=== PATIENT | female | born 1955 | race American Indian/Alaskan Native ===

== ENCOUNTER 2016-05-02 11:30 | Inpatient (IN) | payer OTHER ==
[~2016-05-02] VITALS: Ht 165.1 cm; Wt 156.2 kg
[~2016-05-02 11:30] MED LIST: ACET325T26 PO; ALBU2.5V NEB; ALBU6.7H IH; AMLO5TAB4 PO; AMOX1TAB12 PO; APIX5TAB PO; ASPI-650; AZIT-14 PO; CEFD300C2 PO; CHOL20002 PO; CLIN300C93 PO; DILT300C44 PO; DOXY100C2 PO; DOXY100T PO; Doxycycline Hyclate PO; FLUT1BLS INH; FOLI-17 PO; FURO-92 PO; FURO20TA3 PO; GLIM4TAB2 PO; GUAI400T26 PO; GUAI5SYR PO; HYDR-3241 PO; HYDR60CR2 TP; IBUP400T PO; INSU100I18 SQ-INSULIN; INSU100I28 SQ-INSULIN; INSU100V13 SQ; LEVO750T26 PO; LEVO75TA PO; LISI20TA PO; METH4TAB2 PO; NITR100C PO; OMEP-110 PO; OXYC5CAP4 PO; PRED10TA PO; PRED20TA PO; PRED50TA PO; SIMV20TA3 PO; SPIR100T2 PO; SPIR50TA2 PO; TRAZ50TA18 PO; [UNRECOGNIZED DRUG - CODE]
[2016-05-02] MEDS ORDERED: SODIUM CHLORIDE FLUSH 10ML SYR IVF ONE (12:30)
[2016-05-02 12:38] LABS: HEMOGLOBIN 10.7 g/dL (11.7-16.4)
[2016-05-02] MEDS ORDERED: ALBUTEROL/IPRATROPIUM 2.5MG/0.5MG, 3 ML ONE (12:38)
[2016-05-02] MEDS: ALBUTEROL/IPRATROPIUM 2.5MG/0.5MG, 3 ML NPPB SCH ×2 (12:50→12:51)
[2016-05-02 12:52] LABS: BLOOD UREA NITROGEN 20 mg/dL (7-18)
[2016-05-02] MEDS ORDERED: APIX5TAB PO (12:54)
[2016-05-02] MEDS ORDERED: PRED10TA PO (12:54)
[2016-05-02 12:56] LABS: IS PT STATUS REG ER OR PRE ER? YES
[2016-05-02] MEDS ORDERED: POTA90TA2 PO (12:56)
[2016-05-02 14:16] LABS: PATH.CAST-FLAG NOT PRESENT; SPERM-FLAG NOT PRESENT; SRC-FLAG NOT PRESENT; XTAL-FLAG NOT PRESENT; YLC-FLAG NOT PRESENT
[2016-05-02] MEDS ORDERED: PIPERACILLIN/TAZO/PMX 3.375GM 50 ML IV ONE (14:30)
[2016-05-02] MEDS ORDERED: PIPERACILLIN/TAZO/PMX 3.375GM 0 ML ONE (14:46)
[2016-05-02] MEDS ORDERED: HYDROcodone/APAP 5/325 TABLET PO PRN (15:00)
[2016-05-02] MEDS ORDERED: ONDANSETRON 2MG/ML, 2ML IVP PRN (15:00)
[2016-05-02] MEDS ORDERED: ACETAMINOPHEN 325 MG TABLET PO PRN (15:00)
[2016-05-02] MEDS ORDERED: ALBUTEROL SULFATE 2.5 MG/3 ML NEB PRN (15:00)
[2016-05-02] MEDS ORDERED: ALBUTEROL SULFATE IH PRN (15:00)
[2016-05-02] MEDS ORDERED: ENOXAPARIN 40 MG/0.4 ML SQ SCH (15:00)
[2016-05-02] MEDS ORDERED: CEFTRIAXONE PMX 1GM/50ML 50 ML ONE ×2 (15:24→15:29)
[2016-05-02] MEDS: CEFTRIAXONE PMX 2GM/50ML 50 ML IV SCH (15:31)
[2016-05-02] MEDS ORDERED: ACETAMINOPHEN 325 MG TABLET ONE (15:36)
[2016-05-02] MEDS: INSULIN REGULAR 100 UNITS/ML, 3ML VIAL SQ-INSULIN SCH ×2 (16:00→22:58)
[2016-05-02 17:00] VITALS: BP 141/82
[2016-05-02] MEDS: AZITHROMYCIN 500 MG in SODIUM CHLORIDE 0.9% 250 ML IV SCH (17:31)
[2016-05-02 19:43] VITALS: BP 117/69
[2016-05-02] MEDS: INSULIN DETEMIR 100 UNITS/ML, PEN SQ-INSULIN SCH (23:00)
[2016-05-02] MEDS: APIXABAN 5 MG TABLET PO SCH (23:01)
[2016-05-02] MEDS: AMLODIPINE 5 MG TABLET PO SCH (23:01)
[2016-05-02] MEDS: FAMOTIDINE 20 MG/2 ML IV SCH (23:01)
[2016-05-03 02:21] VITALS: BP 137/74
[2016-05-03 05:14] LABS: BLOOD UREA NITROGEN 18 mg/dL (7-18)
[2016-05-03] MEDS: INSULIN REGULAR 100 UNITS/ML, 3ML VIAL SQ-INSULIN SCH ×4 (07:00→21:30)
[2016-05-03] MEDS ORDERED: ALBUTEROL SULFATE 2.5 MG/3 ML NPPB PRN (07:30)
[2016-05-03 07:50] VITALS: BP 138/86
[2016-05-03] MEDS: LEVOTHYROXINE 75 MCG TABLET PO SCH (08:30)
[2016-05-03] MEDS: SPIRONOLACTONE 50 MG TABLET PO SCH (08:30)
[2016-05-03] MEDS: SENNA/DOCUSATE TABLET PO SCH (08:31)
[2016-05-03] MEDS: CHOLECALCIFEROL 1,000 UNIT TABLET PO SCH ×4 (08:31→08:34)
[2016-05-03] MEDS: APIXABAN 5 MG TABLET PO SCH ×2 (08:31→21:30)
[2016-05-03] MEDS: FAMOTIDINE 20 MG/2 ML IV SCH (08:31)
[2016-05-03] MEDS: AMLODIPINE 5 MG TABLET PO SCH ×2 (08:31→21:30)
[2016-05-03] MEDS: INSULIN DETEMIR 100 UNITS/ML, PEN SQ-INSULIN SCH ×2 (08:32→21:30)
[2016-05-03] MEDS: ALBUTEROL SULFATE 2.5 MG/3 ML NEB SCH ×3 (10:32→18:47)
[2016-05-03 13:21] VITALS: BP 132/86
[2016-05-03] MEDS: CEFTRIAXONE PMX 2GM/50ML 50 ML IV SCH (15:46)
[2016-05-03] MEDS: AZITHROMYCIN 500 MG in SODIUM CHLORIDE 0.9% 250 ML IV SCH (16:45)
[2016-05-03 18:48] VITALS: BP 145/77
[2016-05-04] MEDS: FAMOTIDINE 20 MG/2 ML IV SCH ×3 (00:34→21:41)
[2016-05-04 01:13] VITALS: BP 142/70
[2016-05-04 06:53] VITALS: BP 140/75
[2016-05-04] MEDS: INSULIN REGULAR 100 UNITS/ML, 3ML VIAL SQ-INSULIN SCH ×4 (07:00→21:42)
[2016-05-04] MEDS: ALBUTEROL SULFATE 2.5 MG/3 ML NEB SCH ×4 (07:42→18:30)
[2016-05-04] MEDS: CHOLECALCIFEROL 1,000 UNIT TABLET PO SCH ×2 (09:00→09:11)
[2016-05-04] MEDS: APIXABAN 5 MG TABLET PO SCH ×2 (09:11→21:41)
[2016-05-04] MEDS: LEVOTHYROXINE 75 MCG TABLET PO SCH (09:11)
[2016-05-04] MEDS: SPIRONOLACTONE 50 MG TABLET PO SCH (09:11)
[2016-05-04] MEDS: INSULIN DETEMIR 100 UNITS/ML, PEN SQ-INSULIN SCH ×2 (09:12→21:41)
[2016-05-04] MEDS: AMLODIPINE 5 MG TABLET PO SCH ×2 (09:12→21:42)
[2016-05-04] MEDS: SENNA/DOCUSATE TABLET PO SCH (09:12)
[2016-05-04 13:29] VITALS: BP 130/79
[2016-05-04] MEDS: CEFTRIAXONE PMX 2GM/50ML 50 ML IV SCH (15:18)
[2016-05-04] MEDS: AZITHROMYCIN 500 MG in SODIUM CHLORIDE 0.9% 250 ML IV SCH (16:13)
[2016-05-04 18:30] VITALS: BP 136/63
[2016-05-05 00:54] VITALS: BP 126/57
[2016-05-05] MEDS: ALBUTEROL SULFATE 2.5 MG/3 ML NEB SCH ×2 (06:32→10:22)
[2016-05-05 06:45] VITALS: BP 122/73
[2016-05-05] MEDS: INSULIN REGULAR 100 UNITS/ML, 3ML VIAL SQ-INSULIN SCH ×2 (07:00→12:04)
[2016-05-05] MEDS: CHOLECALCIFEROL 1,000 UNIT TABLET PO SCH ×2 (08:47→08:48)
[2016-05-05] MEDS: LEVOTHYROXINE 75 MCG TABLET PO SCH (08:47)
[2016-05-05] MEDS: SENNA/DOCUSATE TABLET PO SCH (08:47)
[2016-05-05] MEDS: AMLODIPINE 5 MG TABLET PO SCH (08:47)
[2016-05-05] MEDS: INSULIN DETEMIR 100 UNITS/ML, PEN SQ-INSULIN SCH (08:48)
[2016-05-05] MEDS: SPIRONOLACTONE 50 MG TABLET PO SCH (08:48)
[2016-05-05] MEDS: APIXABAN 5 MG TABLET PO SCH (08:48)
[2016-05-05] MEDS: FAMOTIDINE 20 MG/2 ML IV SCH (08:48)
[2016-05-05] MEDS ORDERED: PRED20TA PO (09:48)
== END 2016-05-05 12:22 | disposition home or self-care (01) | DRG 189 ==
LOC: ED 14:12 → EDIP 14:13 → ED 14:14 → 4WST 16:25
PROVIDERS: ADMIT Internal Medicine; ATTEND Internal Medicine
PROC: 0T9B70Z Drainage of Bladder with Drainage Device, Via Natural or Artificial Opening (ICD-10-PCS; principal; 2016-05-02)
DX: J96.21 Acute and chronic respiratory failure with hypoxia (principal); J18.9 Pneumonia, unspecified organism; J44.0 Chronic obstructive pulmonary disease with (acute) lower respiratory infection; I13.0 Hypertensive heart and chronic kidney disease with heart failure and stage 1 through stage 4 chronic kidney disease, or unspecified chronic kidney disease; I50.32 Chronic diastolic (congestive) heart failure; D59.1 Other autoimmune hemolytic anemias; Z68.43 Body mass index [BMI] 50.0-59.9, adult; N39.0 Urinary tract infection, site not specified; J44.1 Chronic obstructive pulmonary disease with (acute) exacerbation; E11.22 Type 2 diabetes mellitus with diabetic chronic kidney disease; N18.3 Chronic kidney disease, stage 3 (moderate); I27.2 Other secondary pulmonary hypertension; E66.01 Morbid (severe) obesity due to excess calories; Z66 Do not resuscitate; E78.5 Hyperlipidemia, unspecified; E11.65 Type 2 diabetes mellitus with hyperglycemia; E55.9 Vitamin D deficiency, unspecified; G47.33 Obstructive sleep apnea (adult) (pediatric); E89.0 Postprocedural hypothyroidism; I87.8 Other specified disorders of veins; M19.90 Unspecified osteoarthritis, unspecified site; Z79.01 Long term (current) use of anticoagulants; Z79.4 Long term (current) use of insulin; Z79.52 Long term (current) use of systemic steroids; Z99.81 Dependence on supplemental oxygen; Z86.711 Personal history of pulmonary embolism; Z87.891 Personal history of nicotine dependence; Z88.2 Allergy status to sulfonamides; Z88.1 Allergy status to other antibiotic agents; Z91.041 Radiographic dye allergy status; Z90.710 Acquired absence of both cervix and uterus; Z90.49 Acquired absence of other specified parts of digestive tract; Z82.49 Family history of ischemic heart disease and other diseases of the circulatory system
CPT/HCPCS: 36415; 71010; 80048; 81001; 82040; 82306; 82962; 83036; 83605; 83880; 84443; 84484; 85025; 87040; 87077; 87086; 87186; 93005; 94640; 96365; J0456; J0696; J1815; J7613; J7620; J7050; J7512; S0028

== ENCOUNTER 2016-06-22 14:44 | Emergency (ER) | payer OTHER ==
[~2016-06-22] VITALS: Ht 165.1 cm; Wt 149.5 kg
[~2016-06-22 14:44] MED LIST changes: +ACET325T14 PO; -AZIT-14 PO; +AZIT250T89 PO; -CEFD300C2 PO; +CEFD300C37 PO; +DEXT4TAB PO; +FAMO20TA7 PO; +HYDR-3240 PO; +POTA10TA5 PO; +POTA90TA2 PO; +PRED-402 PO
[2016-06-22] MEDS ORDERED: FUROSEMIDE 40 MG/4 ML IVP ONE (16:00)
[2016-06-22] MEDS ORDERED: SODIUM CHLORIDE FLUSH 10ML SYR IVF ONE (16:00)
[2016-06-22] MEDS ORDERED: ALBUTEROL/IPRATROPIUM 2.5MG/0.5MG, 3 ML NPPB ONE (16:00)
[2016-06-22] MEDS ORDERED: FUROSEMIDE 20 MG/2 ML ONE (16:08)
[2016-06-22 16:27] LABS: ASPARTATE AMINO TRANSFERASE 16 U/L (15-37); BLOOD UREA NITROGEN 18 mg/dL (7-18)
[2016-06-22] MEDS ORDERED: ALBUTEROL/IPRATROPIUM 2.5MG/0.5MG, 3 ML ONE (16:27)
[2016-06-22 16:39] LABS: IS PT STATUS REG ER OR PRE ER? YES
[2016-06-22 19:02] VITALS: BP 122/66
== END 2016-06-22 19:04 | disposition home or self-care (01) ==
LOC: ED 15:22
DX: J44.1 Chronic obstructive pulmonary disease with (acute) exacerbation (principal); I10 Essential (primary) hypertension; I50.1 Left ventricular failure, unspecified; Z87.891 Personal history of nicotine dependence
CPT/HCPCS: 36415; 71010; 80053; 81003; 83605; 83880; 84484; 85025; 85610; 85730; 87040; 93005; 93971; 94640; 99285; J7512; J7620

== ENCOUNTER 2016-06-23 18:01 | Emergency (ER) | payer OTHER ==
[~2016-06-23] VITALS: Ht 167.6 cm; Wt 110.0 kg
[2016-06-23] MEDS ORDERED: SODIUM CHLORIDE 0.9% 1,000ML IVBOLUS ONE (18:30)
[2016-06-23 18:32] LABS: PH, VENOUS 7.379 pH (7.320-7.420)
[2016-06-23 18:46] LABS: ASPARTATE AMINO TRANSFERASE 8 U/L (15-37); BLOOD UREA NITROGEN 24 mg/dL (7-18)
[2016-06-23 18:50] LABS: IS PT STATUS REG ER OR PRE ER? YES
[2016-06-23 19:39] VITALS: BP 133/55
== END 2016-06-23 20:33 | disposition home or self-care (01) ==
LOC: ED 19:17
DX: E11.65 Type 2 diabetes mellitus with hyperglycemia (principal); E66.01 Morbid (severe) obesity due to excess calories; E86.0 Dehydration; Z68.39 Body mass index [BMI] 39.0-39.9, adult; J44.9 Chronic obstructive pulmonary disease, unspecified; I11.0 Hypertensive heart disease with heart failure; I50.9 Heart failure, unspecified; M54.9 Dorsalgia, unspecified; G89.29 Other chronic pain; M19.90 Unspecified osteoarthritis, unspecified site
CPT/HCPCS: 36415; 80053; 81003; 82010; 82803; 84484; 85025; 93005; 96360; 99285; J7030

== ENCOUNTER 2016-06-26 14:39 | Inpatient (IN) | payer SELFPAY ==
[~2016-06-26] VITALS: Ht 165.1 cm; Wt 162.8 kg
[2016-06-26] MEDS ORDERED: ALBUTEROL/IPRATROPIUM 2.5MG/0.5MG, 3 ML NPPB SCH (15:30)
[2016-06-26] MEDS ORDERED: ALBUTEROL/IPRATROPIUM 2.5MG/0.5MG, 3 ML ONE (15:35)
[2016-06-26 15:48] LABS: ASPARTATE AMINO TRANSFERASE 10 U/L (15-37); BLOOD UREA NITROGEN 30 mg/dL (7-18)
[2016-06-26 15:54] LABS: IS PT STATUS REG ER OR PRE ER? YES
[2016-06-26] MEDS ORDERED: methylPREDNISolone SOD SUCC 125 MG/2 ML ONE (17:48)
[2016-06-26] MEDS ORDERED: OXYcodone/APAP 7.5/325MG TABLET ONE (17:48)
[2016-06-26] MEDS ORDERED: methylPREDNISolone SOD SUCC 125 MG/2 ML IVPush SCH (18:00)
[2016-06-26] MEDS ORDERED: OXYcodone/APAP 7.5/325MG TABLET PO ONE (18:00)
[2016-06-26] MEDS ORDERED: DEXTROSE 4 GM TAB.CHEW PO PRN (20:00)
[2016-06-26] MEDS ORDERED: GLUCAGON 1 MG IM PRN (20:00)
[2016-06-26] MEDS ORDERED: DEXTROSE 50%, 50ML SYRINGE IVPush PRN (20:00)
[2016-06-26] MEDS ORDERED: ALBUTEROL SULFATE 2.5 MG/3 ML NPPB PRN (20:30)
[2016-06-26 20:49] VITALS: BP 120/73
[2016-06-26 22:00] VITALS: BP 120/73
[2016-06-26] MEDS: INSULIN DETEMIR 100 UNITS/ML, PEN SQ-INSULIN SCH (23:07)
[2016-06-26] MEDS: SIMVASTATIN 20 MG TABLET PO SCH (23:08)
[2016-06-26] MEDS: methylPREDNISolone SOD SUCC 125 MG/2 ML IVPush SCH (23:08)
[2016-06-26] MEDS: APIXABAN 5 MG TABLET PO SCH (23:09)
[2016-06-26] MEDS: SODIUM CHLORIDE FLUSH 10ML SYR IVF SCH (23:09)
[2016-06-26] MEDS: AMLODIPINE 5 MG TABLET PO SCH (23:09)
[2016-06-26] MEDS: TRAZODONE 50MG TABLET PO PRN (23:10)
[2016-06-27 00:43] VITALS: BP 102/62
[2016-06-27] MEDS: DOXYCYCLINE 100 MG in DEXTROSE 5% 250 ML IV SCH ×3 (00:45→22:33)
[2016-06-27] MEDS: INSULIN ASPART 100 UNITS/ML, PEN SQ-INSULIN SCH ×5 (00:48→20:38)
[2016-06-27] MEDS: methylPREDNISolone SOD SUCC 125 MG/2 ML IVPush SCH ×4 (05:27→22:33)
[2016-06-27 07:34] VITALS: BP 114/71
[2016-06-27] MEDS: LEVOTHYROXINE 75 MCG TABLET PO SCH (07:51)
[2016-06-27] MEDS: APIXABAN 5 MG TABLET PO SCH ×2 (07:51→20:23)
[2016-06-27] MEDS: SPIRONOLACTONE 100 MG TABLET PO SCH (07:51)
[2016-06-27] MEDS: AMLODIPINE 5 MG TABLET PO SCH ×2 (07:51→20:23)
[2016-06-27] MEDS: INSULIN DETEMIR 100 UNITS/ML, PEN SQ-INSULIN SCH ×2 (07:52→20:39)
[2016-06-27] MEDS: SODIUM CHLORIDE FLUSH 10ML SYR IVF SCH ×2 (07:53→20:23)
[2016-06-27 11:40] LABS: BLOOD UREA NITROGEN 26 mg/dL (7-18)
[2016-06-27 13:34] VITALS: BP 111/70
[2016-06-27] MEDS: HYDROcodone/APAP 5/325 TABLET PO PRN (16:08)
[2016-06-27 19:31] VITALS: BP 137/75
[2016-06-27] MEDS: SIMVASTATIN 20 MG TABLET PO SCH (20:23)
[2016-06-27] MEDS: TRAZODONE 50MG TABLET PO PRN (22:33)
[2016-06-28 01:43] VITALS: BP_SYST 169; BP_SYST 177; BP_DIAS 70; BP_DIAS 79
[2016-06-28] MEDS: methylPREDNISolone SOD SUCC 125 MG/2 ML IVPush SCH ×4 (04:34→21:48)
[2016-06-28] MEDS: HYDROcodone/APAP 5/325 TABLET PO PRN ×3 (04:49→21:49)
[2016-06-28 05:54] LABS: BLOOD UREA NITROGEN 28 mg/dL (7-18)
[2016-06-28] MEDS: INSULIN ASPART 100 UNITS/ML, PEN SQ-INSULIN SCH ×4 (07:28→22:13)
[2016-06-28] MEDS: INSULIN DETEMIR 100 UNITS/ML, PEN SQ-INSULIN SCH ×2 (07:29→22:12)
[2016-06-28 07:33] VITALS: BP 130/63
[2016-06-28] MEDS: POLYETHYLENE GLYCOL 17 GM PACKET PO SCH ×2 (09:27→21:48)
[2016-06-28] MEDS: SODIUM CHLORIDE FLUSH 10ML SYR IVF SCH ×2 (09:27→21:49)
[2016-06-28] MEDS: SPIRONOLACTONE 100 MG TABLET PO SCH (09:27)
[2016-06-28] MEDS: APIXABAN 5 MG TABLET PO SCH ×2 (09:28→21:49)
[2016-06-28] MEDS: LEVOTHYROXINE 75 MCG TABLET PO SCH (09:28)
[2016-06-28] MEDS: AMLODIPINE 5 MG TABLET PO SCH ×2 (09:28→21:49)
[2016-06-28] MEDS: DOXYCYCLINE 100 MG in DEXTROSE 5% 250 ML IV SCH ×2 (09:30→22:13)
[2016-06-28 14:20] VITALS: BP 135/73
[2016-06-28 19:35] VITALS: BP 164/88
[2016-06-28] MEDS: SIMVASTATIN 20 MG TABLET PO SCH (21:49)
[2016-06-28] MEDS: TRAZODONE 50MG TABLET PO PRN (22:11)
[2016-06-29 01:59] VITALS: BP 134/73
[2016-06-29 06:01] LABS: BLOOD UREA NITROGEN 32 mg/dL (7-18)
[2016-06-29 07:36] VITALS: BP 143/80
[2016-06-29] MEDS: SODIUM CHLORIDE FLUSH 10ML SYR IVF SCH (08:42)
[2016-06-29] MEDS: AMLODIPINE 5 MG TABLET PO SCH (08:43)
[2016-06-29] MEDS: LEVOTHYROXINE 75 MCG TABLET PO SCH (08:43)
[2016-06-29] MEDS: methylPREDNISolone SOD SUCC 125 MG/2 ML IVPush SCH (08:43)
[2016-06-29] MEDS: SPIRONOLACTONE 100 MG TABLET PO SCH (08:43)
[2016-06-29] MEDS: INSULIN ASPART 100 UNITS/ML, PEN SQ-INSULIN SCH ×2 (08:44→12:37)
[2016-06-29] MEDS: INSULIN DETEMIR 100 UNITS/ML, PEN SQ-INSULIN SCH (08:44)
[2016-06-29] MEDS: APIXABAN 5 MG TABLET PO SCH (08:48)
[2016-06-29] MEDS: POLYETHYLENE GLYCOL 17 GM PACKET PO SCH (08:48)
[2016-06-29] MEDS ORDERED: SENNA/DOCUSATE TABLET PO SCH (09:00)
[2016-06-29] MEDS: DOXYCYCLINE 100 MG in DEXTROSE 5% 250 ML IV SCH (12:37)
[2016-06-29] MEDS ORDERED: DOXY100T PO (14:00)
== END 2016-06-29 15:13 | disposition home or self-care (01) | DRG 637 ==
LOC: ED 16:23 → EDIP 17:57 → SUATTDRO 19:01 → 3NE 19:45
PROVIDERS: ADMIT Internal Medicine; ATTEND Internal Medicine
DX: E11.65 Type 2 diabetes mellitus with hyperglycemia (principal); I26.99 Other pulmonary embolism without acute cor pulmonale; J44.0 Chronic obstructive pulmonary disease with (acute) lower respiratory infection; J96.10 Chronic respiratory failure, unspecified whether with hypoxia or hypercapnia; I50.32 Chronic diastolic (congestive) heart failure; I13.0 Hypertensive heart and chronic kidney disease with heart failure and stage 1 through stage 4 chronic kidney disease, or unspecified chronic kidney disease; D68.69 Other thrombophilia; D59.1 Other autoimmune hemolytic anemias; Z68.43 Body mass index [BMI] 50.0-59.9, adult; J44.1 Chronic obstructive pulmonary disease with (acute) exacerbation; G47.33 Obstructive sleep apnea (adult) (pediatric); Z99.81 Dependence on supplemental oxygen; E03.9 Hypothyroidism, unspecified; Z86.711 Personal history of pulmonary embolism; E78.5 Hyperlipidemia, unspecified; E66.01 Morbid (severe) obesity due to excess calories; I27.2 Other secondary pulmonary hypertension; M19.90 Unspecified osteoarthritis, unspecified site; G89.29 Other chronic pain; M54.9 Dorsalgia, unspecified; Z90.710 Acquired absence of both cervix and uterus; Z90.49 Acquired absence of other specified parts of digestive tract; Z87.891 Personal history of nicotine dependence; Z88.2 Allergy status to sulfonamides; Z88.8 Allergy status to other drugs, medicaments and biological substances; Z91.041 Radiographic dye allergy status; E11.21 Type 2 diabetes mellitus with diabetic nephropathy; E11.22 Type 2 diabetes mellitus with diabetic chronic kidney disease; Z79.52 Long term (current) use of systemic steroids; I07.1 Rheumatic tricuspid insufficiency; N18.3 Chronic kidney disease, stage 3 (moderate); J20.9 Acute bronchitis, unspecified; D63.1 Anemia in chronic kidney disease
CPT/HCPCS: 36415; 71010; 80048; 80053; 82962; 83880; 84484; 85025; 93005; 94640; 96374; J1815; J7060; J7613; J7620; J2930

== ENCOUNTER 2016-07-04 07:10 | Emergency (ER) | payer SELFPAY ==
[~2016-07-04] VITALS: Ht 165.1 cm; Wt 149.5 kg
[2016-07-04] MEDS ORDERED: SODIUM CHLORIDE FLUSH 10ML SYR IVF ONE (08:00)
[2016-07-04] MEDS ORDERED: ACETAMINOPHEN 325 MG TABLET PO ONE (08:00)
[2016-07-04 08:14] LABS: BLOOD UREA NITROGEN 36 mg/dL (7-18)
[2016-07-04 08:15] LABS: ASPARTATE AMINO TRANSFERASE 9 U/L (15-37)
[2016-07-04] MEDS ORDERED: ACETAMINOPHEN 325 MG TABLET ONE (08:33)
[2016-07-04 08:54] VITALS: BP 149/76
== END 2016-07-04 10:55 | disposition home or self-care (01) ==
LOC: ED 08:17
DX: R29.810 Facial weakness (principal); F41.1 Generalized anxiety disorder; R06.4 Hyperventilation; E11.9 Type 2 diabetes mellitus without complications; I11.0 Hypertensive heart disease with heart failure; J96.90 Respiratory failure, unspecified, unspecified whether with hypoxia or hypercapnia; J44.9 Chronic obstructive pulmonary disease, unspecified; M19.90 Unspecified osteoarthritis, unspecified site; Z90.49 Acquired absence of other specified parts of digestive tract; Z90.710 Acquired absence of both cervix and uterus; Z87.891 Personal history of nicotine dependence
CPT/HCPCS: 36415; 70450; 80053; 81003; 82140; 85025; 85610; 85730; 93005

== ENCOUNTER 2016-08-05 21:12 | Emergency (ER) | payer OTHER ==
[~2016-08-05] VITALS: Ht 165.1 cm; Wt 150.0 kg
[2016-08-05] MEDS ORDERED: ALBUTEROL/IPRATROPIUM 2.5MG/0.5MG, 3 ML ONE (22:13)
[2016-08-05] MEDS ORDERED: MORPHINE SULFATE 4 MG/ML, 1ML ONE (22:21)
[2016-08-05] MEDS ORDERED: ONDANSETRON 2MG/ML, 2ML ONE (22:21)
[2016-08-05] MEDS ORDERED: SODIUM CHLORIDE FLUSH 10ML SYR IVF ONE (22:30)
[2016-08-05] MEDS ORDERED: SODIUM CHLORIDE 0.9% 1,000ML IVBOLUS ONE (22:30)
[2016-08-05] MEDS ORDERED: MORPHINE SULFATE 4 MG/ML, 1ML IVPush PRN (22:30)
[2016-08-05] MEDS ORDERED: ALBUTEROL/IPRATROPIUM 2.5MG/0.5MG, 3 ML NPPB ONE (22:30)
[2016-08-05] MEDS ORDERED: ONDANSETRON 2MG/ML, 2ML IVP ONE (22:30)
[2016-08-05 22:33] LABS: ASPARTATE AMINO TRANSFERASE 11 U/L (15-37); BLOOD UREA NITROGEN 16 mg/dL (7-18)
[2016-08-05 22:40] LABS: IS PT STATUS REG ER OR PRE ER? YES
[2016-08-06 00:33] VITALS: BP 130/80
== END 2016-08-06 00:33 | disposition home or self-care (01) ==
LOC: ED 23:59
DX: J44.1 Chronic obstructive pulmonary disease with (acute) exacerbation (principal); E05.00 Thyrotoxicosis with diffuse goiter without thyrotoxic crisis or storm; E11.65 Type 2 diabetes mellitus with hyperglycemia; E66.01 Morbid (severe) obesity due to excess calories; G89.29 Other chronic pain; M54.9 Dorsalgia, unspecified; I10 Essential (primary) hypertension; M19.90 Unspecified osteoarthritis, unspecified site; Z87.891 Personal history of nicotine dependence
CPT/HCPCS: 36415; 71010; 80053; 83880; 84484; 85025; 93005; 94640; 96361; 96374; 96375; 99285; J2405; J7030; J7512; J7620

== ENCOUNTER 2016-08-07 13:37 | Emergency (ER) | payer OTHER ==
[~2016-08-07] VITALS: Ht 165.1 cm; Wt 154.5 kg
[2016-08-07] MEDS ORDERED: ALBUTEROL/IPRATROPIUM 2.5MG/0.5MG, 3 ML NPPB SCH (14:00)
[2016-08-07 14:34] LABS: ASPARTATE AMINO TRANSFERASE 9 U/L (15-37); BLOOD UREA NITROGEN 24 mg/dL (7-18)
[2016-08-07] MEDS ORDERED: ALBUTEROL/IPRATROPIUM 2.5MG/0.5MG, 3 ML ONE (14:38)
[2016-08-07 14:42] LABS: IS PT STATUS REG ER OR PRE ER? YES
[2016-08-07 14:49] VITALS: BP 134/79
== END 2016-08-07 16:00 | disposition home or self-care (01) ==
LOC: ED 15:18
DX: M79.662 Pain in left lower leg (principal); G89.29 Other chronic pain; J44.9 Chronic obstructive pulmonary disease, unspecified; E66.01 Morbid (severe) obesity due to excess calories; I11.0 Hypertensive heart disease with heart failure; E11.65 Type 2 diabetes mellitus with hyperglycemia; J96.90 Respiratory failure, unspecified, unspecified whether with hypoxia or hypercapnia; E07.9 Disorder of thyroid, unspecified
CPT/HCPCS: 36415; 71010; 80053; 83880; 84484; 85025; 93005; 93971; 94640; 99285; J7512; J7620

== ENCOUNTER 2016-08-15 20:46 | Emergency (ER) | payer OTHER ==
[~2016-08-15] VITALS: Ht 165.1 cm; Wt 160.0 kg
[2016-08-15] MEDS ORDERED: OXYcodone/APAP 10/325MG TABLET PO ONE (22:00)
[2016-08-15] MEDS ORDERED: OXYcodone/APAP 10/325MG TABLET ONE (22:06)
[2016-08-15 22:09] LABS: BLOOD UREA NITROGEN 30 mg/dL (7-18)
[2016-08-15 22:14] LABS: ASPARTATE AMINO TRANSFERASE 10 U/L (15-37); IS PT STATUS REG ER OR PRE ER? YES
[2016-08-15] MEDS ORDERED: HYDR-882 PO (22:46)
[2016-08-15] MEDS ORDERED: PRED10TA PO (22:46)
[2016-08-15] MEDS ORDERED: INSU100I28 SQ (22:46)
[2016-08-15] MEDS ORDERED: IPRA4AER INH (22:47)
[2016-08-15] MEDS ORDERED: FUROSEMIDE 40 MG/4 ML IV ONE (23:00)
[2016-08-15] MEDS ORDERED: FUROSEMIDE 40 MG/4 ML ONE (23:34)
[2016-08-16 01:27] VITALS: BP 125/60
== END 2016-08-16 01:30 | disposition home or self-care (01) ==
LOC: ED 21:07
DX: I87.2 Venous insufficiency (chronic) (peripheral) (principal); R60.0 Localized edema; E11.65 Type 2 diabetes mellitus with hyperglycemia; I10 Essential (primary) hypertension; M54.9 Dorsalgia, unspecified; G89.29 Other chronic pain; J44.9 Chronic obstructive pulmonary disease, unspecified; M19.90 Unspecified osteoarthritis, unspecified site; Z87.891 Personal history of nicotine dependence; Z99.81 Dependence on supplemental oxygen
CPT/HCPCS: 36415; 71010; 80053; 82962; 83880; 84484; 85025; 93005; 93971; 96374; 99285; J1940; J7512

== ENCOUNTER 2016-08-18 10:20 | Emergency (ER) | payer OTHER ==
[~2016-08-18] VITALS: Ht 165.1 cm; Wt 157.5 kg
[~2016-08-18 10:20] MED LIST changes: +HYDR-882 PO; +INSU100I28 SQ; +IPRA4AER INH
[2016-08-18] MEDS ORDERED: ALBUTEROL/IPRATROPIUM 2.5MG/0.5MG, 3 ML NEB ONE (11:30)
[2016-08-18 11:56] LABS: BLOOD UREA NITROGEN 32 mg/dL (7-18)
[2016-08-18] MEDS ORDERED: ALBUTEROL/IPRATROPIUM 2.5MG/0.5MG, 3 ML ONE (12:06)
[2016-08-18] MEDS ORDERED: ALBUTEROL/IPRATROPIUM 2.5MG/0.5MG, 3 ML NPPB ONE (12:30)
[2016-08-18 13:44] VITALS: BP 132/67
== END 2016-08-18 13:46 | disposition home or self-care (01) ==
LOC: ED 10:42
DX: R06.00 Dyspnea, unspecified (principal); R53.1 Weakness; I50.9 Heart failure, unspecified; J44.9 Chronic obstructive pulmonary disease, unspecified
CPT/HCPCS: 36415; 71010; 80048; 83880; 85025; 93005; 94640; 99285; J7620

== ENCOUNTER → 2016-09-04 | Outpatient (CLI) | payer OTHER | END | disposition home or self-care (01) | LOC: CFH 14:44 | PROVIDERS: ATTEND Nurse Practitioner | DX: Z12.2 Encounter for screening for malignant neoplasm of respiratory organs (principal); J98.11 Atelectasis; M43.26 Fusion of spine, lumbar region; Z87.891 Personal history of nicotine dependence; Z90.49 Acquired absence of other specified parts of digestive tract | CPT/HCPCS: G0297 ==

== ENCOUNTER 2017-01-06 16:26 | Inpatient (IN) | payer OTHER ==
[~2017-01-06] VITALS: Ht 165.1 cm; Wt 53.5 kg
[2017-01-06] MEDS: ALBUTEROL/IPRATROPIUM 2.5MG/0.5MG, 3 ML HHN SCH (10:00)
[~2017-01-06 16:26] MED LIST changes: +CLIN300C8 PO; -CLIN300C93 PO; +FAMO-79 PO; -GUAI400T26 PO; +GUAI400T66 PO; +HYDR-3237 PO; +IBUP-1221 PO; -IBUP400T PO; +MONT10TA9 PO; +OXYC5CAP2 PO; -OXYC5CAP4 PO; +POTA20TA6 PO; +[UNRECOGNIZED DRUG - CODE]; -[UNRECOGNIZED DRUG - CODE]
[2017-01-06] MEDS ORDERED: SODIUM CHLORIDE FLUSH 10ML SYR IVF ONE (17:00)
[2017-01-06] MEDS ORDERED: SODIUM CHLORIDE 0.9% 1,000ML IVBOLUS ONE ×2 (17:00→18:30)
[2017-01-06 18:02] LABS: ASPARTATE AMINO TRANSFERASE 12 U/L (15-37); BLOOD UREA NITROGEN 42 mg/dL (7-18)
[2017-01-06 18:22] LABS: HEMATOCRIT 28.6 % (34.6-47.8); HEMOGLOBIN 9.6 g/dL (11.7-16.4); WHITE BLOOD COUNT 8.1 x10^3/uL (3.4-10)
[2017-01-06] MEDS ORDERED: methylPREDNISolone SOD SUCC 125 MG/2 ML ONE (18:25)
[2017-01-06] MEDS ORDERED: methylPREDNISolone SOD SUCC 125 MG/2 ML IVPush ONE (18:30)
[2017-01-06] MEDS ORDERED: ALBUTEROL/IPRATROPIUM 2.5MG/0.5MG, 3 ML NPPB ONE (18:30)
[2017-01-06] MEDS ORDERED: DIPHENHYDRAMINE 50 MG/ML, 1ML ONE (18:52)
[2017-01-06] MEDS ORDERED: DIPHENHYDRAMINE 50 MG/ML, 1ML IVPush ONE (19:00)
[2017-01-06] MEDS ORDERED: ALBUTEROL/IPRATROPIUM 2.5MG/0.5MG, 3 ML ONE (19:53)
[2017-01-06] MEDS ORDERED: OMNIPAQUE 350 MG/ML, 100ML BOTTLE ONE (20:09)
[2017-01-06] MEDS ORDERED: METO50TA82 PO (20:42)
[2017-01-06] MEDS ORDERED: DOXY100T PO (20:42)
[2017-01-06] MEDS ORDERED: MYCO360T PO (20:42)
[2017-01-06] MEDS ORDERED: HYDROcodone/APAP 5/325 TABLET ONE (21:57)
[2017-01-06] MEDS ORDERED: CEFTRIAXONE PMX 1GM/50ML 50 ML ONE (21:57)
[2017-01-06] MEDS: FUROSEMIDE 40 MG TABLET PO SCH (22:00)
[2017-01-06] MEDS ORDERED: ACETAMINOPHEN 325 MG TABLET PO PRN (22:00)
[2017-01-06] MEDS ORDERED: INSULIN ASPART 100 UNITS/ML, PEN SQ-INSULIN SCH (22:00)
[2017-01-06] MEDS ORDERED: ALBUTEROL SULFATE IH PRN (22:00)
[2017-01-06] MEDS ORDERED: ONDANSETRON 2MG/ML, 2ML IVPush PRN (22:00)
[2017-01-06] MEDS: HYDROcodone/APAP 5/325 TABLET PO PRN (22:00)
[2017-01-06] MEDS ORDERED: BISACODYL 10 MG SUPP PR PRN (22:00)
[2017-01-06 22:59] VITALS: BP 136/74
[2017-01-06] MEDS: INSULIN ASPART 100 UNITS/ML, PEN SQ-INSULIN SCH (23:32)
[2017-01-06] MEDS: AMLODIPINE 5 MG TABLET PO SCH (23:35)
[2017-01-06] MEDS: MONTELUKAST 10 MG TABLET PO SCH (23:35)
[2017-01-06] MEDS: INSULIN DETEMIR 100 UNITS/ML, PEN SQ-INSULIN SCH (23:35)
[2017-01-06] MEDS: SIMVASTATIN 20 MG TABLET PO SCH (23:35)
[2017-01-06] MEDS: METOPROLOL TARTRATE 25 MG TABLET PO SCH (23:36)
[2017-01-06] MEDS: methylPREDNISolone SOD SUCC 125 MG/2 ML IVPush SCH (23:36)
[2017-01-06] MEDS: APIXABAN 5 MG TABLET PO SCH (23:36)
[2017-01-06] MEDS: TRAZODONE 50MG TABLET PO SCH (23:36)
[2017-01-06] MEDS: SODIUM CHLORIDE 0.9% 1,000 ML IV SCH (23:56)
[2017-01-07] MEDS: CEFTRIAXONE PMX 1GM/50ML 50 ML IV SCH (00:22)
[2017-01-07] MEDS: AZITHROMYCIN 500 MG in SODIUM CHLORIDE 0.9% 250 ML IV SCH (01:24)
[2017-01-07 02:43] VITALS: BP 105/68
[2017-01-07] MEDS: methylPREDNISolone SOD SUCC 125 MG/2 ML IVPush SCH ×4 (04:41→21:37)
[2017-01-07 05:57] LABS: HEMATOCRIT 27.6 % (34.6-47.8); HEMOGLOBIN 9.2 g/dL (11.7-16.4); WHITE BLOOD COUNT 7.9 x10^3/uL (3.4-10)
[2017-01-07 06:07] LABS: BLOOD UREA NITROGEN 39 mg/dL (7-18)
[2017-01-07 06:08] LABS: ASPARTATE AMINO TRANSFERASE 8 U/L (15-37)
[2017-01-07 07:40] VITALS: BP 116/69
[2017-01-07] MEDS: INSULIN DETEMIR 100 UNITS/ML, PEN SQ-INSULIN SCH ×2 (08:06→22:00)
[2017-01-07] MEDS: INSULIN ASPART 100 UNITS/ML, PEN SQ-INSULIN SCH ×5 (08:06→22:00)
[2017-01-07] MEDS: APIXABAN 5 MG TABLET PO SCH ×2 (08:07→21:36)
[2017-01-07] MEDS: FUROSEMIDE 40 MG TABLET PO SCH ×2 (08:07→21:36)
[2017-01-07] MEDS: METOPROLOL TARTRATE 25 MG TABLET PO SCH ×2 (08:07→21:36)
[2017-01-07] MEDS: POTASSIUM CHLORIDE 20 MEQ TAB.ER.PRT PO SCH (08:08)
[2017-01-07] MEDS: SENNA/DOCUSATE TABLET PO SCH (08:08)
[2017-01-07] MEDS: LEVOTHYROXINE 75 MCG TABLET PO SCH (08:09)
[2017-01-07] MEDS: CHOLECALCIFEROL 1,000 UNIT TABLET PO SCH (08:09)
[2017-01-07] MEDS: AMLODIPINE 5 MG TABLET PO SCH ×2 (08:10→21:37)
[2017-01-07] MEDS: SPIRONOLACTONE 100 MG TABLET PO SCH (08:10)
[2017-01-07] MEDS: HYDROcodone/APAP 5/325 TABLET PO PRN (09:41)
[2017-01-07] MEDS: SODIUM CHLORIDE 0.9% 1,000 ML IV SCH ×2 (09:42→21:59)
[2017-01-07] MEDS: ALBUTEROL/IPRATROPIUM 2.5MG/0.5MG, 3 ML HHN SCH ×4 (11:00→20:12)
[2017-01-07 14:41] VITALS: BP 121/57
[2017-01-07] MEDS: POLYETHYLENE GLYCOL 17 GM PACKET PO PRN (14:47)
[2017-01-07] MEDS ORDERED: INSULIN ASPART 100 UNITS/ML, PEN SQ-INSULIN ONE (17:30)
[2017-01-07 19:36] VITALS: BP 130/77
[2017-01-07] MEDS: TRAZODONE 50MG TABLET PO SCH (21:35)
[2017-01-07] MEDS: MONTELUKAST 10 MG TABLET PO SCH (21:37)
[2017-01-07] MEDS: SIMVASTATIN 20 MG TABLET PO SCH (21:37)
[2017-01-08] MEDS: CEFTRIAXONE PMX 1GM/50ML 50 ML IV SCH (00:23)
[2017-01-08] MEDS ORDERED: ALBUTEROL SULFATE 2.5 MG/3 ML NPPB PRN (01:00)
[2017-01-08 01:27] VITALS: BP 114/67
[2017-01-08] MEDS: AZITHROMYCIN 500 MG in SODIUM CHLORIDE 0.9% 250 ML IV SCH (01:53)
[2017-01-08] MEDS: methylPREDNISolone SOD SUCC 125 MG/2 ML IVPush SCH ×3 (04:23→21:47)
[2017-01-08] MEDS: GUAIFENESIN/DM 200-20MG, 10ML UDC PO PRN (04:30)
[2017-01-08] MEDS: SODIUM CHLORIDE 0.9% 1,000 ML IV SCH ×3 (05:46→21:49)
[2017-01-08] MEDS: INSULIN ASPART 100 UNITS/ML, PEN SQ-INSULIN SCH ×4 (06:46→21:47)
[2017-01-08 07:15] VITALS: BP 125/72
[2017-01-08] MEDS: ALBUTEROL/IPRATROPIUM 2.5MG/0.5MG, 3 ML NPPB SCH ×4 (07:35→19:30)
[2017-01-08] MEDS: SPIRONOLACTONE 100 MG TABLET PO SCH (09:07)
[2017-01-08] MEDS: AMLODIPINE 5 MG TABLET PO SCH ×2 (09:08→21:33)
[2017-01-08] MEDS: APIXABAN 5 MG TABLET PO SCH ×2 (09:08→21:34)
[2017-01-08] MEDS: SENNA/DOCUSATE TABLET PO SCH (09:08)
[2017-01-08] MEDS: FUROSEMIDE 40 MG TABLET PO SCH (09:08)
[2017-01-08] MEDS: POTASSIUM CHLORIDE 20 MEQ TAB.ER.PRT PO SCH (09:08)
[2017-01-08] MEDS: CHOLECALCIFEROL 1,000 UNIT TABLET PO SCH (09:09)
[2017-01-08] MEDS: METOPROLOL TARTRATE 25 MG TABLET PO SCH ×2 (09:09→21:34)
[2017-01-08] MEDS: HYDROcodone/APAP 5/325 TABLET PO PRN ×2 (09:11→21:33)
[2017-01-08] MEDS: LEVOTHYROXINE 75 MCG TABLET PO SCH (09:14)
[2017-01-08] MEDS: INSULIN DETEMIR 100 UNITS/ML, PEN SQ-INSULIN SCH ×2 (09:14→21:46)
[2017-01-08] MEDS ORDERED: FUROSEMIDE 40 MG TABLET PO ONE (12:45)
[2017-01-08 13:59] VITALS: BP 107/58
[2017-01-08 19:39] VITALS: BP 144/73
[2017-01-08] MEDS ORDERED: CEFDINIR 300 MG CAPSULE PO SCH (21:00)
[2017-01-08] MEDS: SIMVASTATIN 20 MG TABLET PO SCH (21:33)
[2017-01-08] MEDS: MONTELUKAST 10 MG TABLET PO SCH (21:33)
[2017-01-08] MEDS: TRAZODONE 50MG TABLET PO SCH (21:34)
[2017-01-09 01:01] VITALS: BP 128/77
[2017-01-09] MEDS: GUAIFENESIN/DM 200-20MG, 10ML UDC PO PRN (02:44)
[2017-01-09] MEDS: SODIUM CHLORIDE 0.9% 1,000 ML IV SCH ×2 (05:58→12:30)
[2017-01-09] MEDS: HYDROcodone/APAP 5/325 TABLET PO PRN (06:04)
[2017-01-09 06:05] LABS: HEMATOCRIT 25.7 % (34.6-47.8); HEMOGLOBIN 8.6 g/dL (11.7-16.4); WHITE BLOOD COUNT 10.1 x10^3/uL (3.4-10)
[2017-01-09 06:14] LABS: ASPARTATE AMINO TRANSFERASE 14 U/L (15-37); BLOOD UREA NITROGEN 37 mg/dL (7-18)
[2017-01-09] MEDS: ALBUTEROL/IPRATROPIUM 2.5MG/0.5MG, 3 ML NPPB SCH ×4 (07:00→20:00)
[2017-01-09 08:20] VITALS: BP 129/69
[2017-01-09] MEDS ORDERED: DOXYCYCLINE 100MG TABLET PO SCH (09:00)
[2017-01-09] MEDS: INSULIN ASPART 100 UNITS/ML, PEN SQ-INSULIN SCH ×4 (09:07→21:33)
[2017-01-09] MEDS: SPIRONOLACTONE 100 MG TABLET PO SCH (09:08)
[2017-01-09] MEDS: APIXABAN 5 MG TABLET PO SCH ×2 (09:09→21:06)
[2017-01-09] MEDS: POTASSIUM CHLORIDE 20 MEQ TAB.ER.PRT PO SCH (09:09)
[2017-01-09] MEDS: SENNA/DOCUSATE TABLET PO SCH (09:10)
[2017-01-09] MEDS: AMLODIPINE 5 MG TABLET PO SCH ×2 (09:10→21:06)
[2017-01-09] MEDS: CHOLECALCIFEROL 1,000 UNIT TABLET PO SCH (09:10)
[2017-01-09] MEDS: METOPROLOL TARTRATE 25 MG TABLET PO SCH ×2 (09:10→21:06)
[2017-01-09] MEDS: LEVOTHYROXINE 75 MCG TABLET PO SCH (09:10)
[2017-01-09] MEDS: AZITHROMYCIN 500 MG TABLET PO SCH (09:10)
[2017-01-09] MEDS: INSULIN DETEMIR 100 UNITS/ML, PEN SQ-INSULIN SCH ×2 (09:16→21:32)
[2017-01-09] MEDS: FUROSEMIDE 80 MG TABLET PO SCH (09:17)
[2017-01-09] MEDS: methylPREDNISolone SOD SUCC 125 MG/2 ML IVPush SCH ×2 (10:49→21:33)
[2017-01-09 14:34] VITALS: BP 117/69
[2017-01-09 14:59] VITALS: BP 108/74
[2017-01-09 15:00] VITALS: BP_SYST 101; BP_SYST 96; BP_DIAS 55; BP_DIAS 77
[2017-01-09] MEDS ORDERED: GUAIFENESIN 200 MG TABLET PO SCH (17:30)
[2017-01-09 19:47] VITALS: BP 142/71
[2017-01-09] MEDS: SIMVASTATIN 20 MG TABLET PO SCH (21:06)
[2017-01-09] MEDS: TRAZODONE 50MG TABLET PO SCH (21:06)
[2017-01-09] MEDS: MONTELUKAST 10 MG TABLET PO SCH (21:06)
[2017-01-09] MEDS ORDERED: SODIUM CHLORIDE 0.9% 1,000 ML IV SCH (21:46)
[2017-01-10 01:32] VITALS: BP 146/77
[2017-01-10] MEDS: HYDROcodone/APAP 5/325 TABLET PO PRN (04:43)
[2017-01-10 05:11] LABS: BLOOD UREA NITROGEN 37 mg/dL (7-18)
[2017-01-10 05:14] LABS: ASPARTATE AMINO TRANSFERASE 11 U/L (15-37)
[2017-01-10] MEDS: ALBUTEROL/IPRATROPIUM 2.5MG/0.5MG, 3 ML NPPB SCH ×4 (07:25→20:30)
[2017-01-10] MEDS: FUROSEMIDE 80 MG TABLET PO SCH (07:59)
[2017-01-10] MEDS: METOPROLOL TARTRATE 25 MG TABLET PO SCH ×3 (07:59→20:17)
[2017-01-10] MEDS: CHOLECALCIFEROL 1,000 UNIT TABLET PO SCH (07:59)
[2017-01-10] MEDS: AMLODIPINE 5 MG TABLET PO SCH ×3 (07:59→20:17)
[2017-01-10] MEDS: SENNA/DOCUSATE TABLET PO SCH (08:00)
[2017-01-10] MEDS: APIXABAN 5 MG TABLET PO SCH ×2 (08:00→20:17)
[2017-01-10] MEDS: LEVOTHYROXINE 75 MCG TABLET PO SCH (08:00)
[2017-01-10] MEDS: AZITHROMYCIN 500 MG TABLET PO SCH (08:00)
[2017-01-10] MEDS: SPIRONOLACTONE 100 MG TABLET PO SCH (08:00)
[2017-01-10] MEDS: INSULIN ASPART 100 UNITS/ML, PEN SQ-INSULIN SCH ×4 (08:05→20:48)
[2017-01-10] MEDS: INSULIN DETEMIR 100 UNITS/ML, PEN SQ-INSULIN SCH (08:06)
[2017-01-10 08:17] VITALS: BP 130/78
[2017-01-10] MEDS: methylPREDNISolone SOD SUCC 125 MG/2 ML IVPush SCH (09:48)
[2017-01-10] MEDS ORDERED: INSULIN DETEMIR 100 UNITS/ML, PEN SQ-INSULIN ONE (11:00)
[2017-01-10 13:15] VITALS: BP 141/72
[2017-01-10 16:40] VITALS: BP 136/79
[2017-01-10] MEDS: FUROSEMIDE 20 MG/2 ML IV SCH (16:42)
[2017-01-10] MEDS ORDERED: CEFTRIAXONE PMX 2GM/50ML 50 ML IV SCH (17:00)
[2017-01-10 19:04] VITALS: BP 153/68
[2017-01-10] MEDS: SIMVASTATIN 20 MG TABLET PO SCH (20:17)
[2017-01-10] MEDS: TRAZODONE 50MG TABLET PO SCH (20:17)
[2017-01-10] MEDS: MONTELUKAST 10 MG TABLET PO SCH (20:17)
[2017-01-10] MEDS: DOXYCYCLINE 100MG TABLET PO SCH (20:17)
[2017-01-10] MEDS ORDERED: INSULIN DETEMIR 100 UNITS/ML, PEN SQ-INSULIN SCH (21:00)
[2017-01-11 00:45] VITALS: BP 145/66
[2017-01-11 05:04] LABS: HEMATOCRIT 27.6 % (34.6-47.8); HEMOGLOBIN 9.3 g/dL (11.7-16.4); WHITE BLOOD COUNT 10.7 x10^3/uL (3.4-10)
[2017-01-11 05:37] LABS: BLOOD UREA NITROGEN 35 mg/dL (7-18)
[2017-01-11] MEDS: ALBUTEROL/IPRATROPIUM 2.5MG/0.5MG, 3 ML NPPB SCH (07:00)
[2017-01-11 07:56] VITALS: BP 112/70
[2017-01-11 08:23] VITALS: BP 118/71
[2017-01-11] MEDS: SENNA/DOCUSATE TABLET PO SCH (08:25)
[2017-01-11] MEDS: SPIRONOLACTONE 100 MG TABLET PO SCH (08:25)
[2017-01-11] MEDS: DOXYCYCLINE 100MG TABLET PO SCH (08:25)
[2017-01-11] MEDS: APIXABAN 5 MG TABLET PO SCH (08:25)
[2017-01-11] MEDS: METOPROLOL TARTRATE 25 MG TABLET PO SCH (08:25)
[2017-01-11] MEDS: LEVOTHYROXINE 75 MCG TABLET PO SCH (08:25)
[2017-01-11] MEDS: CHOLECALCIFEROL 1,000 UNIT TABLET PO SCH (08:25)
[2017-01-11] MEDS: AMLODIPINE 5 MG TABLET PO SCH (08:26)
[2017-01-11] MEDS: FUROSEMIDE 20 MG/2 ML IV SCH (08:26)
[2017-01-11] MEDS: INSULIN ASPART 100 UNITS/ML, PEN SQ-INSULIN SCH ×2 (08:29→11:43)
[2017-01-11] MEDS: POLYETHYLENE GLYCOL 17 GM PACKET PO PRN (08:34)
[2017-01-11] MEDS ORDERED: INSULIN DETEMIR 100 UNITS/ML, PEN SQ-INSULIN SCH ×2 (09:00)
[2017-01-11] MEDS ORDERED: PRED20TA PO (12:19)
[2017-01-11] MEDS ORDERED: CEFD300C37 PO (12:20)
[2017-01-11] MEDS ORDERED: DOXY100T PO (12:21)
[2017-01-11 13:00] VITALS: BP 129/61
== END 2017-01-11 13:30 | disposition home or self-care (01) | DRG 291 ==
LOC: ED 18:45 → EDIP 20:25 → 4NOR 22:19
PROVIDERS: ADMIT Hospitalist; ATTEND Hospitalist
DX: I13.0 Hypertensive heart and chronic kidney disease with heart failure and stage 1 through stage 4 chronic kidney disease, or unspecified chronic kidney disease (principal); J18.1 Lobar pneumonia, unspecified organism; J96.11 Chronic respiratory failure with hypoxia; E11.22 Type 2 diabetes mellitus with diabetic chronic kidney disease; D59.1 Other autoimmune hemolytic anemias; E88.81 Metabolic syndrome and other insulin resistance; E11.65 Type 2 diabetes mellitus with hyperglycemia; E66.01 Morbid (severe) obesity due to excess calories; J44.0 Chronic obstructive pulmonary disease with (acute) lower respiratory infection; Z68.1 Body mass index [BMI] 19.9 or less, adult; E87.1 Hypo-osmolality and hyponatremia; J44.1 Chronic obstructive pulmonary disease with (acute) exacerbation; I50.9 Heart failure, unspecified; M32.9 Systemic lupus erythematosus, unspecified; E03.9 Hypothyroidism, unspecified; E78.5 Hyperlipidemia, unspecified; G47.33 Obstructive sleep apnea (adult) (pediatric); N18.3 Chronic kidney disease, stage 3 (moderate); T38.0X5A Adverse effect of glucocorticoids and synthetic analogues, initial encounter; Z79.01 Long term (current) use of anticoagulants; Z79.4 Long term (current) use of insulin; Z86.711 Personal history of pulmonary embolism; Z87.891 Personal history of nicotine dependence; Z99.81 Dependence on supplemental oxygen; Z90.49 Acquired absence of other specified parts of digestive tract; Z90.710 Acquired absence of both cervix and uterus; Z79.899 Other long term (current) drug therapy; Z88.2 Allergy status to sulfonamides; Z88.8 Allergy status to other drugs, medicaments and biological substances; Z91.041 Radiographic dye allergy status
CPT/HCPCS: 36415; 71020; 71275; 80048; 80053; 82040; 82947; 82962; 83036; 83880; 85025; 87040; 87070; 87205; 93005; 93970; 94640; J0456; J0696; J1815; J7620; Q9967; J1200; J1940; J2930; J7030; J7050; J7512; J7517

== ENCOUNTER 2017-02-08 18:29 | Inpatient (IN) | payer OTHER ==
[~2017-02-08] VITALS: Ht 165.1 cm; Wt 148.7 kg
[~2017-02-08 18:29] MED LIST changes: +METO50TA82 PO; +MYCO360T PO
[2017-02-08] MEDS ORDERED: methylPREDNISolone SOD SUCC 125 MG/2 ML IVP ONE (19:00)
[2017-02-08] MEDS ORDERED: ALBUTEROL 0.5%, 20ML NPPB SCH (19:00)
[2017-02-08] MEDS ORDERED: SODIUM CHLORIDE 0.9% 1,000ML IVBOLUS ONE (19:00)
[2017-02-08] MEDS ORDERED: methylPREDNISolone SOD SUCC 125 MG/2 ML ONE (19:11)
[2017-02-08] MEDS ORDERED: ALBUTEROL SULFATE 2.5 MG/3 ML ONE (19:11)
[2017-02-08 19:23] LABS: RAPID INFLUENZA A Negative (Negative); RAPID INFLUENZA B Negative (Negative)
[2017-02-08 19:26] LABS: BASOPHILS # (AUTO) 0.02 x10^3/uL (0-0.1); BASOPHILS % (AUTO) 0 % (0-1); EOSINOPHILS # (AUTO) 0.06 x10^3/uL (0-0.4); EOSINOPHILS % (AUTO) 1 % (1-7); LYMPHOCYTES # (AUTO) 0.69 x10^3/uL (1-3.4); LYMPHOCYTES % (AUTO) 16 % (22-44); MD NO; MEAN PLATELET VOLUME 8.6 fL (7.4-10.4); MONOCYTES % (AUTO) 12 % (2-9); NEUTROPHILS % (AUTO) 71 % (42-75); PLATELET COUNT 223 x10^3/uL (130-400); RED BLOOD COUNT 3.77 x10^6/uL (3.82-5.3); RED CELL DISTRIBUTION WIDTH 14.4 % (9.6-15.2)
[2017-02-08 19:30] LABS: ALBUMIN 3.4 g/dL (3.4-5.0); ANION GAP 8 mmol/L (5-15); CALCIUM 8.9 mg/dL (8.5-10.1); CHLORIDE 101 mmol/L (98-107)
[2017-02-08 19:34] LABS: TROPONIN I < 0.015 ng/mL (0.000-0.045)
[2017-02-08] MEDS ORDERED: POTASSIUM CHLORIDE 20 MEQ in SODIUM CHLORIDE 0.9% 1,000 ML IV ONE (20:30)
[2017-02-08] MEDS ORDERED: ONDANSETRON 2MG/ML, 2ML IVPush PRN ×2 (20:30→21:30)
[2017-02-08] MEDS: SIMVASTATIN 20 MG TABLET PO SCH (21:00)
[2017-02-08] MEDS: AMLODIPINE 5 MG TABLET PO SCH (21:00)
[2017-02-08] MEDS: FUROSEMIDE 40 MG TABLET PO SCH (21:00)
[2017-02-08] MEDS: MONTELUKAST 10 MG TABLET PO SCH (21:00)
[2017-02-08] MEDS ORDERED: INSULIN ASPART 100 UNITS/ML, PEN SQ-INSULIN SCH (21:00)
[2017-02-08] MEDS: APIXABAN 5 MG TABLET PO SCH (21:00)
[2017-02-08] MEDS ORDERED: AZITHROMYCIN 500 MG in SODIUM CHLORIDE 0.9% 250 ML IV SCH (21:30)
[2017-02-08] MEDS ORDERED: BISACODYL 10 MG SUPP PR PRN (21:30)
[2017-02-08] MEDS ORDERED: POLYETHYLENE GLYCOL 17 GM PACKET PO PRN (21:30)
[2017-02-08] MEDS ORDERED: GUAIFENESIN/DM 200-20MG, 10ML UDC PO PRN (21:30)
[2017-02-08] MEDS ORDERED: ALBUTEROL/IPRATROPIUM 2.5MG/0.5MG, 3 ML NPPB SCH (22:00)
[2017-02-08 22:02] VITALS: BP 116/74
[2017-02-08] MEDS: methylPREDNISolone SOD SUCC 125 MG/2 ML IVPush SCH (22:47)
[2017-02-08] MEDS: TRAZODONE 50MG TABLET PO SCH (22:47)
[2017-02-08] MEDS: SODIUM CHLORIDE FLUSH 10ML SYR IVF SCH (22:49)
[2017-02-08] MEDS: HEPARIN 5,000 UNITS/ML, 1ML SQ SCH (22:49)
[2017-02-08] MEDS: ACETAMINOPHEN 325 MG TABLET PO PRN (23:00)
[2017-02-08] MEDS: INSULIN ASPART 100 UNITS/ML, PEN SQ-INSULIN SCH (23:01)
[2017-02-08] MEDS: INSULIN DETEMIR 100 UNITS/ML, PEN SQ-INSULIN SCH (23:01)
[2017-02-09] MEDS ORDERED: ALBUTEROL SULFATE 2.5 MG/3 ML NPPB PRN
[2017-02-09 01:56] VITALS: BP 93/61
[2017-02-09] MEDS: methylPREDNISolone SOD SUCC 125 MG/2 ML IVPush SCH ×4 (03:50→21:19)
[2017-02-09 05:04] LABS: BASOPHILS # (AUTO) 0.01 x10^3/uL (0-0.1); BASOPHILS % (AUTO) 0 % (0-1); EOSINOPHILS % (AUTO) 0 % (1-7); LYMPHOCYTES # (AUTO) 0.44 x10^3/uL (1-3.4); LYMPHOCYTES % (AUTO) 14 % (22-44); MD NO; MEAN CORPUSCULAR HEMOGLOBIN 28.8 pg (27.0-34.8); MEAN CORPUSCULAR HGB CONC 32.8 g/dL (32.4-35.8); MEAN CORPUSCULAR VOLUME 87.8 fL (80-100); MONOCYTES # (AUTO) 0.07 x10^3/uL (0.2-0.8); MONOCYTES % (AUTO) 2 % (2-9); NEUTROPHILS % (AUTO) 84 % (42-75); PLATELET COUNT 184 x10^3/uL (130-400); RED BLOOD COUNT 3.59 x10^6/uL (3.82-5.3); RED CELL DISTRIBUTION WIDTH 14.6 % (9.6-15.2)
[2017-02-09 05:08] LABS: ALANINE AMINOTRANSFERASE 35 U/L (12-78); ANION GAP 9 mmol/L (5-15); CALCIUM 8.3 mg/dL (8.5-10.1); CHLORIDE 104 mmol/L (98-107); CREATININE 1.27 mg/dL (0.55-1.02)
[2017-02-09 05:11] LABS: ALKALINE PHOSPHATASE 63 U/L (45-117); BILIRUBIN,TOTAL 0.7 mg/dL (0.2-1.0); TOTAL PROTEIN 6.9 g/dL (6.4-8.2)
[2017-02-09] MEDS: HEPARIN 5,000 UNITS/ML, 1ML SQ SCH ×3 (05:13→21:20)
[2017-02-09] MEDS: ALBUTEROL/IPRATROPIUM 2.5MG/0.5MG, 3 ML NPPB SCH ×4 (06:50→20:30)
[2017-02-09 07:31] VITALS: BP 104/64
[2017-02-09] MEDS ORDERED: SODIUM CHLORIDE 0.9% 1,000 ML IV SCH (08:00)
[2017-02-09] MEDS: SENNA/DOCUSATE TABLET PO SCH (08:32)
[2017-02-09] MEDS: AMLODIPINE 5 MG TABLET PO SCH ×2 (08:32→21:00)
[2017-02-09] MEDS: LEVOTHYROXINE 75 MCG TABLET PO SCH (08:32)
[2017-02-09] MEDS: APIXABAN 5 MG TABLET PO SCH ×2 (08:32→21:20)
[2017-02-09] MEDS: CHOLECALCIFEROL 1,000 UNIT TABLET PO SCH (08:32)
[2017-02-09] MEDS: FUROSEMIDE 40 MG TABLET PO SCH ×2 (08:32→21:20)
[2017-02-09] MEDS: SODIUM CHLORIDE FLUSH 10ML SYR IVF SCH ×2 (08:33→21:19)
[2017-02-09] MEDS: SPIRONOLACTONE 50 MG TABLET PO SCH (08:33)
[2017-02-09] MEDS: INSULIN ASPART 100 UNITS/ML, PEN SQ-INSULIN SCH ×6 (08:34→21:22)
[2017-02-09] MEDS: INSULIN DETEMIR 100 UNITS/ML, PEN SQ-INSULIN SCH ×3 (08:34→21:22)
[2017-02-09] MEDS ORDERED: POTASSIUM CHLORIDE 20 MEQ TAB.ER.PRT PO SCH (09:00)
[2017-02-09 10:24] LABS: HEMOGLOBIN A1C 9.2 % (4.2-6.3)
[2017-02-09] MEDS: DOXYCYCLINE 100 MG in DEXTROSE 5% 250 ML IV SCH ×2 (11:28→23:52)
[2017-02-09 12:41] VITALS: BP 115/67
[2017-02-09] MEDS: HYDROcodone/APAP 5/325 TABLET PO PRN (14:07)
[2017-02-09 18:19] LABS: ANION GAP 16 mmol/L (5-15); CALCIUM 9.3 mg/dL (8.5-10.1); CHLORIDE 99 mmol/L (98-107); CREATININE 1.68 mg/dL (0.55-1.02)
[2017-02-09 20:47] VITALS: BP 95/61
[2017-02-09] MEDS: TRAZODONE 50MG TABLET PO SCH (21:20)
[2017-02-09] MEDS: SIMVASTATIN 20 MG TABLET PO SCH (21:20)
[2017-02-09] MEDS: MONTELUKAST 10 MG TABLET PO SCH (21:20)
[2017-02-09 22:42] LABS: ANION GAP 14 mmol/L (5-15); CALCIUM 9.4 mg/dL (8.5-10.1); CHLORIDE 99 mmol/L (98-107); CREATININE 1.52 mg/dL (0.55-1.02)
[2017-02-10] MEDS: ACETAMINOPHEN 325 MG TABLET PO PRN ×3 (00:11→20:08)
[2017-02-10] MEDS ORDERED: INSULIN ASPART 100 UNITS/ML, PEN SQ-INSULIN ONE (00:30)
[2017-02-10 00:53] VITALS: BP 111/69
[2017-02-10] MEDS: methylPREDNISolone SOD SUCC 125 MG/2 ML IVPush SCH ×2 (04:01→08:56)
[2017-02-10 04:26] LABS: BASOPHILS # (AUTO) 0.01 x10^3/uL (0-0.1); BASOPHILS % (AUTO) 0 % (0-1); EOSINOPHILS % (AUTO) 0 % (1-7); LYMPHOCYTES # (AUTO) 0.46 x10^3/uL (1-3.4); LYMPHOCYTES % (AUTO) 5 % (22-44); MD NO; MEAN CORPUSCULAR HEMOGLOBIN 29.2 pg (27.0-34.8); MEAN CORPUSCULAR HGB CONC 33.1 g/dL (32.4-35.8); MEAN CORPUSCULAR VOLUME 88.2 fL (80-100); MEAN PLATELET VOLUME 9.1 fL (7.4-10.4); MONOCYTES # (AUTO) 0.38 x10^3/uL (0.2-0.8); MONOCYTES % (AUTO) 4 % (2-9); NEUTROPHILS # (AUTO) 8.05 x10^3/uL (1.8-6.8); NEUTROPHILS % (AUTO) 91 % (42-75); PLATELET COUNT 211 x10^3/uL (130-400); RED CELL DISTRIBUTION WIDTH 14.4 % (9.6-15.2)
[2017-02-10 04:36] LABS: ANION GAP 9 mmol/L (5-15); CALCIUM 9.2 mg/dL (8.5-10.1); CHLORIDE 102 mmol/L (98-107)
[2017-02-10 04:37] LABS: CREATININE 1.33 mg/dL (0.55-1.02)
[2017-02-10] MEDS: HEPARIN 5,000 UNITS/ML, 1ML SQ SCH ×3 (05:13→20:08)
[2017-02-10] MEDS: ALBUTEROL/IPRATROPIUM 2.5MG/0.5MG, 3 ML NPPB SCH ×4 (06:50→19:05)
[2017-02-10 07:12] VITALS: BP 108/65
[2017-02-10] MEDS: INSULIN ASPART 100 UNITS/ML, PEN SQ-INSULIN SCH ×7 (08:53→22:30)
[2017-02-10] MEDS: INSULIN DETEMIR 100 UNITS/ML, PEN SQ-INSULIN SCH ×3 (08:53→20:07)
[2017-02-10] MEDS: LEVOTHYROXINE 75 MCG TABLET PO SCH (08:54)
[2017-02-10] MEDS: CHOLECALCIFEROL 1,000 UNIT TABLET PO SCH (08:54)
[2017-02-10] MEDS: APIXABAN 5 MG TABLET PO SCH ×2 (08:55→20:08)
[2017-02-10] MEDS: AMLODIPINE 5 MG TABLET PO SCH ×2 (08:55→20:09)
[2017-02-10] MEDS: FUROSEMIDE 40 MG TABLET PO SCH ×2 (08:55→20:09)
[2017-02-10] MEDS: SENNA/DOCUSATE TABLET PO SCH (08:55)
[2017-02-10] MEDS: SPIRONOLACTONE 50 MG TABLET PO SCH (08:55)
[2017-02-10] MEDS: HYDROcodone/APAP 5/325 TABLET PO PRN (08:56)
[2017-02-10] MEDS: SODIUM CHLORIDE FLUSH 10ML SYR IVF SCH ×2 (08:56→20:10)
[2017-02-10] MEDS: SODIUM CHLORIDE 0.9% 1,000 ML IV SCH ×2 (10:28→20:10)
[2017-02-10] MEDS ORDERED: methylPREDNISolone SOD SUCC 125 MG/2 ML IVPush SCH (10:30)
[2017-02-10] MEDS: DOXYCYCLINE 100MG TABLET PO SCH ×2 (10:53→20:10)
[2017-02-10] MEDS: GUAIFENESIN ER 600 MG TABLET PO SCH ×2 (10:53→20:08)
[2017-02-10 13:27] VITALS: BP 107/66
[2017-02-10] MEDS ORDERED: SODIUM CHLORIDE 0.9% 1,000ML IVBOLUS ONE (17:00)
[2017-02-10 17:08] LABS: ANION GAP 14 mmol/L (5-15); CHLORIDE 100 mmol/L (98-107); CREATININE 1.69 mg/dL (0.55-1.02)
[2017-02-10 19:13] VITALS: BP 102/53
[2017-02-10] MEDS: MONTELUKAST 10 MG TABLET PO SCH (20:09)
[2017-02-10] MEDS: SIMVASTATIN 20 MG TABLET PO SCH (20:10)
[2017-02-10] MEDS: TRAZODONE 50MG TABLET PO SCH (20:11)
[2017-02-10 21:42] LABS: ANION GAP 9 mmol/L (5-15); CALCIUM 9.1 mg/dL (8.5-10.1); CHLORIDE 103 mmol/L (98-107)
[2017-02-11 02:39] VITALS: BP 122/67
[2017-02-11] MEDS: ACETAMINOPHEN 325 MG TABLET PO PRN ×3 (04:30→20:23)
[2017-02-11] MEDS: HEPARIN 5,000 UNITS/ML, 1ML SQ SCH ×3 (05:18→20:23)
[2017-02-11] MEDS: ALBUTEROL/IPRATROPIUM 2.5MG/0.5MG, 3 ML NPPB SCH ×4 (07:00→20:02)
[2017-02-11] MEDS ORDERED: DEXTROSE 4 GM TAB.CHEW PO PRN (08:00)
[2017-02-11] MEDS ORDERED: DEXTROSE 50%, 50ML SYRINGE IVPush PRN (08:00)
[2017-02-11] MEDS ORDERED: GLUCAGON 1 MG IM PRN (08:00)
[2017-02-11 08:02] LABS: ANION GAP 8 mmol/L (5-15); CHLORIDE 105 mmol/L (98-107); CREATININE 1.09 mg/dL (0.55-1.02)
[2017-02-11] MEDS: SPIRONOLACTONE 50 MG TABLET PO SCH (08:05)
[2017-02-11] MEDS: GUAIFENESIN ER 600 MG TABLET PO SCH ×2 (08:06→20:24)
[2017-02-11] MEDS: FUROSEMIDE 40 MG TABLET PO SCH ×2 (08:06→20:24)
[2017-02-11] MEDS: SENNA/DOCUSATE TABLET PO SCH (08:06)
[2017-02-11] MEDS: APIXABAN 5 MG TABLET PO SCH ×2 (08:06→20:24)
[2017-02-11] MEDS: AMLODIPINE 5 MG TABLET PO SCH ×2 (08:06→20:23)
[2017-02-11] MEDS: CHOLECALCIFEROL 1,000 UNIT TABLET PO SCH (08:07)
[2017-02-11] MEDS: LEVOTHYROXINE 75 MCG TABLET PO SCH (08:07)
[2017-02-11] MEDS: DOXYCYCLINE 100MG TABLET PO SCH ×2 (08:07→20:24)
[2017-02-11 08:08] VITALS: BP 147/79
[2017-02-11] MEDS ORDERED: INSULIN DETEMIR 100 UNITS/ML, PEN SQ-INSULIN SCH ×2 (09:00→21:00)
[2017-02-11] MEDS: INSULIN ASPART 100 UNITS/ML, PEN SQ-INSULIN SCH ×5 (09:02→20:22)
[2017-02-11] MEDS: SODIUM CHLORIDE FLUSH 10ML SYR IVF SCH ×2 (09:02→20:23)
[2017-02-11 14:19] VITALS: BP 148/83
[2017-02-11] MEDS: HYDROcodone/APAP 5/325 TABLET PO PRN (16:19)
[2017-02-11 18:48] VITALS: BP 124/72
[2017-02-11] MEDS: TRAZODONE 50MG TABLET PO SCH (20:24)
[2017-02-11] MEDS: SIMVASTATIN 20 MG TABLET PO SCH (20:24)
[2017-02-11] MEDS: MONTELUKAST 10 MG TABLET PO SCH (20:24)
[2017-02-12 01:28] VITALS: BP 117/75
[2017-02-12] MEDS: HEPARIN 5,000 UNITS/ML, 1ML SQ SCH (04:37)
[2017-02-12] MEDS: ACETAMINOPHEN 325 MG TABLET PO PRN (04:41)
[2017-02-12] MEDS: ALBUTEROL/IPRATROPIUM 2.5MG/0.5MG, 3 ML NPPB SCH ×2 (06:31→10:13)
[2017-02-12 07:43] VITALS: BP 122/74
[2017-02-12] MEDS: SPIRONOLACTONE 50 MG TABLET PO SCH (09:00)
[2017-02-12] MEDS: SODIUM CHLORIDE FLUSH 10ML SYR IVF SCH (09:53)
[2017-02-12] MEDS: CHOLECALCIFEROL 1,000 UNIT TABLET PO SCH (09:54)
[2017-02-12] MEDS: DOXYCYCLINE 100MG TABLET PO SCH (09:54)
[2017-02-12] MEDS: SENNA/DOCUSATE TABLET PO SCH (09:54)
[2017-02-12] MEDS: AMLODIPINE 5 MG TABLET PO SCH (09:54)
[2017-02-12] MEDS: LEVOTHYROXINE 75 MCG TABLET PO SCH (09:54)
[2017-02-12] MEDS: APIXABAN 5 MG TABLET PO SCH (09:55)
[2017-02-12] MEDS: FUROSEMIDE 40 MG TABLET PO SCH (09:55)
[2017-02-12] MEDS: GUAIFENESIN ER 600 MG TABLET PO SCH (09:55)
[2017-02-12] MEDS: INSULIN ASPART 100 UNITS/ML, PEN SQ-INSULIN SCH ×2 (09:56→12:15)
[2017-02-12] MEDS ORDERED: INSULIN DETEMIR 100 UNITS/ML, PEN SQ-INSULIN SCH (10:00)
[2017-02-12] MEDS ORDERED: INSU100I28 SQ (10:57)
[2017-02-12] MEDS ORDERED: GUAI600T31 PO (10:57)
[2017-02-12] MEDS ORDERED: PRED20TA PO (10:57)
[2017-02-12] MEDS ORDERED: DOXY100T PO (10:57)
[2017-02-12 12:13] VITALS: BP 144/77
== END 2017-02-12 12:58 | disposition home or self-care (01) | DRG 189 ==
LOC: ED 19:52 → EDIP 20:31 → 4WST 21:35 → DCLOUNGE 02-12 12:40
PROVIDERS: ADMIT Surgery; ATTEND Surgery
PROC: 5A09357 Assistance with Respiratory Ventilation, Less than 24 Consecutive Hours, Continuous Positive Airway Pressure (ICD-10-PCS; 2017-02-08)
PROC: 5A09357 Assistance with Respiratory Ventilation, Less than 24 Consecutive Hours, Continuous Positive Airway Pressure (ICD-10-PCS; principal; 2017-02-10)
PROC: 5A09357 Assistance with Respiratory Ventilation, Less than 24 Consecutive Hours, Continuous Positive Airway Pressure (ICD-10-PCS; 2017-02-11)
PROC: 5A09357 Assistance with Respiratory Ventilation, Less than 24 Consecutive Hours, Continuous Positive Airway Pressure (ICD-10-PCS; 2017-02-12)
DX: J96.21 Acute and chronic respiratory failure with hypoxia (principal); D68.59 Other primary thrombophilia; D89.9 Disorder involving the immune mechanism, unspecified; E11.22 Type 2 diabetes mellitus with diabetic chronic kidney disease; D59.1 Other autoimmune hemolytic anemias; N18.3 Chronic kidney disease, stage 3 (moderate); Z68.43 Body mass index [BMI] 50.0-59.9, adult; I13.0 Hypertensive heart and chronic kidney disease with heart failure and stage 1 through stage 4 chronic kidney disease, or unspecified chronic kidney disease; I50.32 Chronic diastolic (congestive) heart failure; J44.1 Chronic obstructive pulmonary disease with (acute) exacerbation; E11.65 Type 2 diabetes mellitus with hyperglycemia; E03.9 Hypothyroidism, unspecified; E66.01 Morbid (severe) obesity due to excess calories; E78.5 Hyperlipidemia, unspecified; E87.5 Hyperkalemia; J06.9 Acute upper respiratory infection, unspecified; T38.0X5A Adverse effect of glucocorticoids and synthetic analogues, initial encounter; Z79.01 Long term (current) use of anticoagulants; Z79.4 Long term (current) use of insulin; Z82.49 Family history of ischemic heart disease and other diseases of the circulatory system; Z87.891 Personal history of nicotine dependence; Z90.710 Acquired absence of both cervix and uterus; Z99.81 Dependence on supplemental oxygen; Z86.711 Personal history of pulmonary embolism; Z90.89 Acquired absence of other organs; Z88.2 Allergy status to sulfonamides; Z88.1 Allergy status to other antibiotic agents; Z91.041 Radiographic dye allergy status
CPT/HCPCS: 36415; 36600; 71010; 80048; 80053; 82040; 82803; 82947; 82962; 83036; 83880; 84484; 85025; 87070; 87205; 87400; 93005; 94640; 94660; 99285; J0456; J1644; J1815; J3480; J7060; J7518; J7620; J2930; J7030; J7050; J7512

== ENCOUNTER 2017-03-10 10:35 | Emergency (ER) | payer OTHER ==
[~2017-03-10] VITALS: Ht 165.1 cm; Wt 149.0 kg
[~2017-03-10 10:35] MED LIST changes: +GUAI600T31 PO
[2017-03-10] MEDS ORDERED: METO-95 PO (11:16)
[2017-03-10] MEDS ORDERED: FURO80TA3 PO (11:16)
[2017-03-10 12:42] LABS: BASOPHILS # (AUTO) 0.02 x10^3/uL (0-0.1); BASOPHILS % (AUTO) 0 % (0-1); EOSINOPHILS % (AUTO) 5 % (1-7); LYMPHOCYTES # (AUTO) 1.16 x10^3/uL (1-3.4); LYMPHOCYTES % (AUTO) 20 % (22-44); MD NO; MEAN CORPUSCULAR HEMOGLOBIN 28.3 pg (27.0-34.8); MEAN CORPUSCULAR HGB CONC 32.6 g/dL (32.4-35.8); MEAN CORPUSCULAR VOLUME 86.9 fL (80-100); MEAN PLATELET VOLUME 8.3 fL (7.4-10.4); MONOCYTES # (AUTO) 0.61 x10^3/uL (0.2-0.8); MONOCYTES % (AUTO) 11 % (2-9); NEUTROPHILS # (AUTO) 3.66 x10^3/uL (1.8-6.8); NEUTROPHILS % (AUTO) 64 % (42-75); PLATELET COUNT 257 x10^3/uL (130-400); RED BLOOD COUNT 3.77 x10^6/uL (3.82-5.3); RED CELL DISTRIBUTION WIDTH 14.7 % (9.6-15.2)
[2017-03-10 12:52] LABS: ALBUMIN 3.4 g/dL (3.4-5.0); ANION GAP 7 mmol/L (5-15); CALCIUM 9.3 mg/dL (8.5-10.1); CHLORIDE 101 mmol/L (98-107); CREATININE 1.33 mg/dL (0.55-1.02)
[2017-03-10] MEDS ORDERED: ACETAMINOPHEN 500 MG TABLET ONE (14:04)
[2017-03-10] MEDS ORDERED: ACETAMINOPHEN 500 MG TABLET PO ONE (14:30)
[2017-03-10 14:42] VITALS: BP 130/68
== END 2017-03-10 14:44 | disposition home or self-care (01) ==
LOC: ED 11:34
DX: I87.2 Venous insufficiency (chronic) (peripheral) (principal); R60.0 Localized edema; L03.116 Cellulitis of left lower limb; E11.9 Type 2 diabetes mellitus without complications; J44.9 Chronic obstructive pulmonary disease, unspecified; I11.0 Hypertensive heart disease with heart failure; I50.9 Heart failure, unspecified; Z86.718 Personal history of other venous thrombosis and embolism; Z90.49 Acquired absence of other specified parts of digestive tract; Z90.710 Acquired absence of both cervix and uterus
CPT/HCPCS: 36415; 71045; 80048; 82040; 85025; 93005; 99285

== ENCOUNTER 2017-03-15 15:42 | Inpatient (IN) | payer OTHER ==
[~2017-03-15] VITALS: Ht 165.1 cm; Wt 151.4 kg
[~2017-03-15 15:42] MED LIST changes: +FURO80TA3 PO; +METO-95 PO
[2017-03-15] MEDS ORDERED: INSU100C5 SQ-INSULIN (16:28)
[2017-03-15] MEDS ORDERED: CEPH-376 PO (16:29)
[2017-03-15 17:29] LABS: BASOPHILS # (AUTO) 0.01 x10^3/uL (0-0.1); BASOPHILS % (AUTO) 0 % (0-1); EOSINOPHILS # (AUTO) 0.18 x10^3/uL (0-0.4); EOSINOPHILS % (AUTO) 3 % (1-7); HCT (SEDRATE) 32.5 % (34.6-47.8); LYMPHOCYTES # (AUTO) 1.31 x10^3/uL (1-3.4); LYMPHOCYTES % (AUTO) 18 % (22-44); MD NO; MEAN CORPUSCULAR HEMOGLOBIN 28.1 pg (27.0-34.8); MEAN CORPUSCULAR VOLUME 85.3 fL (80-100); MEAN PLATELET VOLUME 8.8 fL (7.4-10.4); MONOCYTES # (AUTO) 0.75 x10^3/uL (0.2-0.8); MONOCYTES % (AUTO) 10 % (2-9); NEUTROPHILS % (AUTO) 69 % (42-75); PLATELET COUNT 296 x10^3/uL (130-400); RED BLOOD COUNT 3.81 x10^6/uL (3.82-5.3); RED CELL DISTRIBUTION WIDTH 14.7 % (9.6-15.2)
[2017-03-15] MEDS ORDERED: CLINDAMYCIN PMX 300MG/50ML 50 ML IV ONE (17:30)
[2017-03-15 17:35] LABS: ALBUMIN 3.4 g/dL (3.4-5.0); ANION GAP 10 mmol/L (5-15); CHLORIDE 103 mmol/L (98-107); CREATININE 1.26 mg/dL (0.55-1.02)
[2017-03-15] MEDS ORDERED: SODIUM CHLORIDE FLUSH 10ML SYR IVF ONE (18:00)
[2017-03-15 18:27] LABS: SEDIMENTATION RATE 105 mm/hr (0-20)
[2017-03-15] MEDS ORDERED: SODIUM CHLORIDE 0.9% 1,000ML IVBOLUS ONE (18:30)
[2017-03-15] MEDS ORDERED: LIDOCAINE 1%, 20ML SQ ONE ×2 (19:00→19:30)
[2017-03-15] MEDS ORDERED: LIDOCAINE 1%, 20ML ONE ×2 (19:10→19:14)
[2017-03-15] MEDS ORDERED: SODIUM CHLORIDE FLUSH 10ML SYR IVF PRN (20:00)
[2017-03-15 21:42] VITALS: BP 129/79
[2017-03-15] MEDS ORDERED: ONDANSETRON 2MG/ML, 2ML IVPush PRN (22:00)
[2017-03-15] MEDS ORDERED: hydrALAzine 20 MG/ML, 1ML IVPush PRN (22:00)
[2017-03-15] MEDS ORDERED: BISACODYL 10 MG SUPP PR PRN (22:00)
[2017-03-15] MEDS ORDERED: ENALAPRILAT 1.25 MG/ML, 2ML IVPush PRN (22:00)
[2017-03-15] MEDS ORDERED: morphine SULFATE 10 MG/ML, 1ML IVPush PRN (22:00)
[2017-03-15] MEDS ORDERED: POLYETHYLENE GLYCOL 17 GM PACKET PO PRN (22:00)
[2017-03-15] MEDS ORDERED: VANCOMYCIN PER PHARMACY MC PRN (22:00)
[2017-03-15] MEDS: ALBUTEROL/IPRATROPIUM 2.5MG/0.5MG, 3 ML NPPB SCH (22:00)
[2017-03-15] MEDS ORDERED: DEXTROSE 4 GM TAB.CHEW PO PRN (22:00)
[2017-03-15] MEDS ORDERED: VANCOMYCIN PMX 1GM/200ML 200 ML IV ONE (22:00)
[2017-03-15 22:31] LABS: HEMOGLOBIN A1C 9.7 % (4.2-6.3)
[2017-03-15] MEDS: METOPROLOL SUCCINATE 100 MG TAB.ER.24H PO SCH (22:33)
[2017-03-15] MEDS: MONTELUKAST 10 MG TABLET PO SCH (22:33)
[2017-03-15] MEDS: SIMVASTATIN 20 MG TABLET PO SCH (22:33)
[2017-03-15 22:42] LABS: FREE T4 (FREE THYROXINE) 0.94 ng/dL (0.76-1.46); THYROID STIMULATING HORMONE 3.95 mIU/L (0.358-3.740)
[2017-03-15] MEDS: PIPERACILLIN/TAZO/PMX 3.375GM 50 ML IV SCH (22:53)
[2017-03-15] MEDS: INSULIN DETEMIR 100 UNITS/ML, PEN SQ-INSULIN SCH (22:54)
[2017-03-15] MEDS: INSULIN LISPRO 100 UNITS/ML, PEN SQ-INSULIN SCH (22:56)
[2017-03-15] MEDS ORDERED: PHARMACOKINETIC MONITORING MC PRN (23:00)
[2017-03-15] MEDS ORDERED: PHARMACOKINETIC CONSULTATION MC ONE (23:00)
[2017-03-15] MEDS ORDERED: APIXABAN 5 MG TABLET PO ONE (23:00)
[2017-03-15] MEDS: VANCOMYCIN 2,000 MG in SODIUM CHLORIDE 0.9% 500 ML IV SCH (23:42)
[2017-03-16] VITALS: BP 129/79
[2017-03-16 00:58] VITALS: BP 125/68
[2017-03-16 04:57] LABS: BASOPHILS # (AUTO) 0.02 x10^3/uL (0-0.1); BASOPHILS % (AUTO) 0 % (0-1); EOSINOPHILS # (AUTO) 0.19 x10^3/uL (0-0.4); EOSINOPHILS % (AUTO) 3 % (1-7); LYMPHOCYTES # (AUTO) 1.01 x10^3/uL (1-3.4); LYMPHOCYTES % (AUTO) 18 % (22-44); MD NO; MEAN CORPUSCULAR HEMOGLOBIN 28.2 pg (27.0-34.8); MEAN CORPUSCULAR VOLUME 85.5 fL (80-100); MEAN PLATELET VOLUME 8.5 fL (7.4-10.4); MONOCYTES % (AUTO) 13 % (2-9); NEUTROPHILS # (AUTO) 3.58 x10^3/uL (1.8-6.8); NEUTROPHILS % (AUTO) 65 % (42-75); PLATELET COUNT 242 x10^3/uL (130-400); RED BLOOD COUNT 3.46 x10^6/uL (3.82-5.3); RED CELL DISTRIBUTION WIDTH 14.7 % (9.6-15.2)
[2017-03-16 05:04] LABS: CHLORIDE 105 mmol/L (98-107)
[2017-03-16 05:14] LABS: ALANINE AMINOTRANSFERASE 21 U/L (12-78); ALKALINE PHOSPHATASE 64 U/L (45-117); ANION GAP 6 mmol/L (5-15); BILIRUBIN,TOTAL 0.7 mg/dL (0.2-1.0); CALCIUM 8.4 mg/dL (8.5-10.1); CHOL/HDL RATIO 3.7; CHOLESTEROL, TOTAL 136 mg/dL (140-239); CREATININE 1.08 mg/dL (0.55-1.02); HDL CHOL % 27 % (28-40); HDL CHOLESTEROL (DIRECT) 37 mg/dL (40-60); LDL CHOLESTEROL,CALCULATED 63 mg/dL (54-169); LDL/HDL RATIO 1.7 (0.5-3.0); TOTAL PROTEIN 6.5 g/dL (6.4-8.2); TRIGLYCERIDES 182 mg/dL (50-200); VLDL CHOLESTEROL 36 mg/dL (0-25)
[2017-03-16] MEDS: ACETAMINOPHEN 325 MG TABLET PO PRN ×2 (05:47→23:17)
[2017-03-16] MEDS: OXYcodone IR 5MG TABLET PO PRN ×2 (05:47→14:36)
[2017-03-16] MEDS: ALBUTEROL/IPRATROPIUM 2.5MG/0.5MG, 3 ML NPPB SCH ×4 (07:15→19:20)
[2017-03-16 08:42] VITALS: BP 127/77
[2017-03-16] MEDS: SENNA/DOCUSATE TABLET PO SCH (08:42)
[2017-03-16] MEDS: CHOLECALCIFEROL 1,000 UNIT TABLET PO SCH (08:42)
[2017-03-16] MEDS: METOPROLOL SUCCINATE 100 MG TAB.ER.24H PO SCH ×2 (08:42→20:52)
[2017-03-16] MEDS: FUROSEMIDE 40 MG TABLET PO SCH (08:42)
[2017-03-16] MEDS: APIXABAN 5 MG TABLET PO SCH ×2 (08:42→20:54)
[2017-03-16] MEDS: PIPERACILLIN/TAZO/PMX 3.375GM 50 ML IV SCH ×3 (08:43→23:17)
[2017-03-16] MEDS: AMLODIPINE 5 MG TABLET PO SCH ×2 (08:43→20:55)
[2017-03-16] MEDS: LEVOTHYROXINE 75 MCG TABLET PO SCH (08:43)
[2017-03-16] MEDS: INSULIN LISPRO 100 UNITS/ML, PEN SQ-INSULIN SCH ×4 (08:44→21:11)
[2017-03-16] MEDS: INSULIN DETEMIR 100 UNITS/ML, PEN SQ-INSULIN SCH ×2 (08:44→21:12)
[2017-03-16] MEDS ORDERED: MAGNESIUM SULFATE PMX 2GM/50ML 50 ML IV ONE (15:30)
[2017-03-16 16:14] VITALS: BP 110/67
[2017-03-16 20:45] VITALS: BP 101/62
[2017-03-16] MEDS: MONTELUKAST 10 MG TABLET PO SCH (20:52)
[2017-03-16] MEDS: SIMVASTATIN 20 MG TABLET PO SCH (20:53)
[2017-03-16] MEDS ORDERED: INSULIN LISPRO 100 UNITS/ML, PEN SQ-INSULIN ONE (22:00)
[2017-03-16] MEDS: DIPHENHYDRAMINE 50 MG/ML, 1ML IVPush PRN (23:17)
[2017-03-17] MEDS: VANCOMYCIN 2,000 MG in SODIUM CHLORIDE 0.9% 500 ML IV SCH (00:01)
[2017-03-17 02:39] VITALS: BP 125/77
[2017-03-17] MEDS: LEVOTHYROXINE 75 MCG TABLET PO SCH (05:09)
[2017-03-17 06:30] VITALS: BP 118/73
[2017-03-17] MEDS: ALBUTEROL/IPRATROPIUM 2.5MG/0.5MG, 3 ML NPPB SCH ×7 (07:00→19:45)
[2017-03-17] MEDS: AMLODIPINE 5 MG TABLET PO SCH ×2 (08:11→20:30)
[2017-03-17] MEDS: FUROSEMIDE 40 MG TABLET PO SCH (08:11)
[2017-03-17] MEDS: APIXABAN 5 MG TABLET PO SCH ×2 (08:11→20:30)
[2017-03-17] MEDS: SENNA/DOCUSATE TABLET PO SCH (08:11)
[2017-03-17] MEDS: CHOLECALCIFEROL 1,000 UNIT TABLET PO SCH (08:11)
[2017-03-17] MEDS: METOPROLOL SUCCINATE 100 MG TAB.ER.24H PO SCH ×2 (08:12→20:30)
[2017-03-17] MEDS: INSULIN DETEMIR 100 UNITS/ML, PEN SQ-INSULIN SCH ×2 (08:12→20:31)
[2017-03-17] MEDS: INSULIN LISPRO 100 UNITS/ML, PEN SQ-INSULIN SCH ×3 (08:13→20:31)
[2017-03-17] MEDS: PIPERACILLIN/TAZO/PMX 3.375GM 50 ML IV SCH ×2 (08:17→16:35)
[2017-03-17] MEDS: DIPHENHYDRAMINE 50 MG/ML, 1ML IVPush PRN ×2 (08:17→16:35)
[2017-03-17 13:36] VITALS: BP 107/58
[2017-03-17 19:47] VITALS: BP 130/75
[2017-03-17] MEDS: MONTELUKAST 10 MG TABLET PO SCH (20:30)
[2017-03-17] MEDS: SIMVASTATIN 20 MG TABLET PO SCH (20:30)
[2017-03-17] MEDS: ACETAMINOPHEN 325 MG TABLET PO PRN (20:36)
[2017-03-18] MEDS: VANCOMYCIN 2,000 MG in SODIUM CHLORIDE 0.9% 500 ML IV SCH (00:05)
[2017-03-18 01:42] VITALS: BP 106/56
[2017-03-18] MEDS: DIPHENHYDRAMINE 50 MG/ML, 1ML IVPush PRN (02:16)
[2017-03-18] MEDS: PIPERACILLIN/TAZO/PMX 3.375GM 50 ML IV SCH ×3 (02:16→16:11)
[2017-03-18] MEDS: LEVOTHYROXINE 75 MCG TABLET PO SCH (04:57)
[2017-03-18] MEDS: OXYcodone IR 5MG TABLET PO PRN (04:58)
[2017-03-18] MEDS: ALBUTEROL/IPRATROPIUM 2.5MG/0.5MG, 3 ML NPPB SCH ×5 (07:00→20:00)
[2017-03-18] MEDS: INSULIN LISPRO 100 UNITS/ML, PEN SQ-INSULIN SCH ×4 (07:00→20:07)
[2017-03-18 07:36] VITALS: BP 99/61
[2017-03-18] MEDS: FUROSEMIDE 40 MG TABLET PO SCH (09:00)
[2017-03-18] MEDS: METOPROLOL SUCCINATE 100 MG TAB.ER.24H PO SCH ×2 (09:34→19:58)
[2017-03-18] MEDS: AMLODIPINE 5 MG TABLET PO SCH ×2 (09:34→19:58)
[2017-03-18] MEDS: INSULIN DETEMIR 100 UNITS/ML, PEN SQ-INSULIN SCH ×2 (09:34→20:06)
[2017-03-18] MEDS: SENNA/DOCUSATE TABLET PO SCH (09:35)
[2017-03-18] MEDS: CHOLECALCIFEROL 1,000 UNIT TABLET PO SCH (09:35)
[2017-03-18] MEDS: APIXABAN 5 MG TABLET PO SCH ×2 (09:35→19:58)
[2017-03-18] MEDS: ACETAMINOPHEN 325 MG TABLET PO PRN (12:51)
[2017-03-18 13:54] VITALS: BP 107/66
[2017-03-18 19:16] VITALS: BP 121/65
[2017-03-18] MEDS: SIMVASTATIN 20 MG TABLET PO SCH (19:58)
[2017-03-18] MEDS: MONTELUKAST 10 MG TABLET PO SCH (19:58)
[2017-03-18] MEDS ORDERED: VANCOMYCIN 2,300 MG in SODIUM CHLORIDE 0.9% 500 ML IV SCH (21:00)
[2017-03-19] MEDS: DIPHENHYDRAMINE 50 MG/ML, 1ML IVPush PRN (00:24)
[2017-03-19] MEDS: PIPERACILLIN/TAZO/PMX 3.375GM 50 ML IV SCH ×3 (00:25→16:30)
[2017-03-19 01:49] VITALS: BP 111/65
[2017-03-19] MEDS: LEVOTHYROXINE 75 MCG TABLET PO SCH (05:16)
[2017-03-19] MEDS: ACETAMINOPHEN 325 MG TABLET PO PRN ×2 (05:16→16:37)
[2017-03-19] MEDS: OXYcodone IR 5MG TABLET PO PRN ×2 (06:10→11:15)
[2017-03-19] MEDS: ALBUTEROL/IPRATROPIUM 2.5MG/0.5MG, 3 ML NPPB SCH ×3 (06:30→14:09)
[2017-03-19 07:55] VITALS: BP 105/65
[2017-03-19] MEDS: INSULIN DETEMIR 100 UNITS/ML, PEN SQ-INSULIN SCH (08:27)
[2017-03-19] MEDS: INSULIN LISPRO 100 UNITS/ML, PEN SQ-INSULIN SCH ×3 (08:28→16:38)
[2017-03-19] MEDS: METOPROLOL SUCCINATE 100 MG TAB.ER.24H PO SCH (08:29)
[2017-03-19] MEDS: APIXABAN 5 MG TABLET PO SCH (08:29)
[2017-03-19] MEDS: FUROSEMIDE 40 MG TABLET PO SCH (08:29)
[2017-03-19] MEDS: CHOLECALCIFEROL 1,000 UNIT TABLET PO SCH (08:29)
[2017-03-19] MEDS: AMLODIPINE 5 MG TABLET PO SCH (08:29)
[2017-03-19] MEDS: SENNA/DOCUSATE TABLET PO SCH (08:29)
[2017-03-19] MEDS ORDERED: CEFD300C37 PO (10:27)
[2017-03-19] MEDS ORDERED: DOXY100T10 PO (10:27)
[2017-03-19 13:58] VITALS: BP 98/64
== END 2017-03-19 17:02 | disposition home or self-care (01) | DRG 853 ==
LOC: ED 17:28 → EDIP 19:41 → 3NE 19:42
PROVIDERS: ADMIT Internal Medicine; ATTEND Internal Medicine
PROC: 0J9C0ZZ Drainage of Pelvic Region Subcutaneous Tissue and Fascia, Open Approach (ICD-10-PCS; principal; 2017-03-15)
DX: A41.9 Sepsis, unspecified organism (principal); E43 Unspecified severe protein-calorie malnutrition; J96.10 Chronic respiratory failure, unspecified whether with hypoxia or hypercapnia; E11.22 Type 2 diabetes mellitus with diabetic chronic kidney disease; E87.2 Acidosis; D59.1 Other autoimmune hemolytic anemias; E11.65 Type 2 diabetes mellitus with hyperglycemia; I13.0 Hypertensive heart and chronic kidney disease with heart failure and stage 1 through stage 4 chronic kidney disease, or unspecified chronic kidney disease; I50.9 Heart failure, unspecified; L03.311 Cellulitis of abdominal wall; Z68.43 Body mass index [BMI] 50.0-59.9, adult; E66.01 Morbid (severe) obesity due to excess calories; N18.3 Chronic kidney disease, stage 3 (moderate); I87.2 Venous insufficiency (chronic) (peripheral); G47.33 Obstructive sleep apnea (adult) (pediatric); E03.9 Hypothyroidism, unspecified; M19.90 Unspecified osteoarthritis, unspecified site; E55.9 Vitamin D deficiency, unspecified; E78.5 Hyperlipidemia, unspecified; J43.9 Emphysema, unspecified; L02.92 Furuncle, unspecified; Z79.01 Long term (current) use of anticoagulants; Z79.4 Long term (current) use of insulin; Z86.711 Personal history of pulmonary embolism; Z87.891 Personal history of nicotine dependence; Z90.710 Acquired absence of both cervix and uterus; Z99.81 Dependence on supplemental oxygen; Z79.899 Other long term (current) drug therapy; Z90.49 Acquired absence of other specified parts of digestive tract
CPT/HCPCS: 36415; 76705; 80048; 80053; 80061; 80202; 82040; 82947; 82962; 83036; 83605; 83735; 84145; 84439; 84443; 85025; 85651; 86140; 87040; 87070; 87077; 87186; 87205; 94640; 96365; J2543; J3370; J7620; J1200; J1815; J3475; J7030; J7040; J7517

== ENCOUNTER 2017-03-23 10:58 | Observation (INO) | payer OTHER ==
[~2017-03-23] VITALS: Ht 165.1 cm; Wt 156.5 kg
[~2017-03-23 10:58] MED LIST changes: +CEPH-376 PO; +DOXY100T10 PO; +INSU100C5 SQ-INSULIN
[2017-03-23] MEDS ORDERED: FUROSEMIDE 40 MG/4 ML ONE (12:18)
[2017-03-23] MEDS ORDERED: SODIUM CHLORIDE FLUSH 10ML SYR IVF ONE (12:30)
[2017-03-23] MEDS ORDERED: FUROSEMIDE 40 MG/4 ML IV ONE (12:30)
[2017-03-23 12:34] LABS: BASOPHILS # (AUTO) 0.02 x10^3/uL (0-0.1); BASOPHILS % (AUTO) 0 % (0-1); EOSINOPHILS % (AUTO) 4 % (1-7); LYMPHOCYTES # (AUTO) 1.12 x10^3/uL (1-3.4); LYMPHOCYTES % (AUTO) 20 % (22-44); MD NO; MEAN CORPUSCULAR HEMOGLOBIN 28.1 pg (27.0-34.8); MEAN CORPUSCULAR HGB CONC 33.1 g/dL (32.4-35.8); MEAN CORPUSCULAR VOLUME 84.9 fL (80-100); MEAN PLATELET VOLUME 7.9 fL (7.4-10.4); MONOCYTES # (AUTO) 0.56 x10^3/uL (0.2-0.8); MONOCYTES % (AUTO) 10 % (2-9); NEUTROPHILS # (AUTO) 3.78 x10^3/uL (1.8-6.8); NEUTROPHILS % (AUTO) 67 % (42-75); PLATELET COUNT 260 x10^3/uL (130-400); RED CELL DISTRIBUTION WIDTH 14.9 % (9.6-15.2)
[2017-03-23 12:45] LABS: ALBUMIN 3.4 g/dL (3.4-5.0); ANION GAP 7 mmol/L (5-15); CALCIUM 8.9 mg/dL (8.5-10.1); CHLORIDE 106 mmol/L (98-107); CREATININE 1.45 mg/dL (0.55-1.02)
[2017-03-23] MEDS ORDERED: BISACODYL 10 MG SUPP PR PRN (15:00)
[2017-03-23] MEDS ORDERED: LABETALOL 5MG/ML, 20ML IVPush PRN (15:00)
[2017-03-23] MEDS ORDERED: DOCUSATE 100 MG CAPSULE PO PRN (15:00)
[2017-03-23] MEDS ORDERED: POLYETHYLENE GLYCOL 17 GM PACKET PO PRN (15:00)
[2017-03-23] MEDS ORDERED: HYDROcodone/APAP 5/325 TABLET PO PRN (15:00)
[2017-03-23] MEDS ORDERED: ONDANSETRON 2MG/ML, 2ML IVPush PRN (15:00)
[2017-03-23] MEDS ORDERED: HYDROmorphone 2 MG/ML, 1ML ONE (15:22)
[2017-03-23] MEDS ORDERED: TEMPLATE NON-FORMULARY MED. (Insulin Aspart** (Novolog**) 0 UNITS) SQ-INSULIN SCH (16:00)
[2017-03-23] MEDS ORDERED: TEMPLATE NON-FORMULARY MED. (Ipratropium/Albuterol Sulfate (Combivent Respimat Inhal Spray INH SCH (16:00)
[2017-03-23] MEDS: ACETAMINOPHEN 325 MG TABLET PO PRN (16:23)
[2017-03-23] MEDS: HEPARIN 5,000 UNITS/ML, 1ML SQ SCH (16:53)
[2017-03-23 17:14] VITALS: BP 112/52
[2017-03-23 18:38] VITALS: BP 129/70
[2017-03-23] MEDS ORDERED: ALBUTEROL/IPRATROPIUM 2.5MG/0.5MG, 3 ML NPPB PRN (19:30)
[2017-03-23] MEDS: ALBUTEROL/IPRATROPIUM 2.5MG/0.5MG, 3 ML NPPB SCH (21:00)
[2017-03-23] MEDS ORDERED: ALBUTEROL/IPRATROPIUM 2.5MG/0.5MG, 3 ML NPPB SCH (21:00)
[2017-03-23] MEDS ORDERED: MONTELUKAST 10 MG TABLET PO SCH (21:00)
[2017-03-23] MEDS ORDERED: SIMVASTATIN 20 MG TABLET PO SCH (21:00)
[2017-03-23] MEDS: CEFDINIR 300 MG CAPSULE PO SCH (21:02)
[2017-03-23] MEDS: APIXABAN 5 MG TABLET PO SCH (21:02)
[2017-03-23] MEDS: SODIUM CHLORIDE FLUSH 10ML SYR IVF SCH (21:02)
[2017-03-23] MEDS: DOXYCYCLINE 100MG TABLET PO SCH (21:03)
[2017-03-23] MEDS: METOPROLOL SUCCINATE 50 MG TAB.ER.24H PO SCH (21:03)
[2017-03-23] MEDS: INSULIN GLARGINE 100 UNITS/ML, PEN SQ-INSULIN SCH (21:23)
[2017-03-23] MEDS: INSULIN LISPRO 100 UNITS/ML, PEN SQ-INSULIN SCH (21:24)
[2017-03-24] MEDS: HEPARIN 5,000 UNITS/ML, 1ML SQ SCH ×3 (01:05→16:17)
[2017-03-24 01:07] VITALS: BP 131/99
[2017-03-24] MEDS: ALBUTEROL/IPRATROPIUM 2.5MG/0.5MG, 3 ML NPPB SCH ×3 (01:46→15:00)
[2017-03-24 05:28] LABS: BASOPHILS # (AUTO) 0.03 x10^3/uL (0-0.1); BASOPHILS % (AUTO) 1 % (0-1); EOSINOPHILS # (AUTO) 0.16 x10^3/uL (0-0.4); EOSINOPHILS % (AUTO) 3 % (1-7); LYMPHOCYTES # (AUTO) 1.35 x10^3/uL (1-3.4); LYMPHOCYTES % (AUTO) 22 % (22-44); MD NO; MEAN CORPUSCULAR HEMOGLOBIN 28.3 pg (27.0-34.8); MEAN CORPUSCULAR HGB CONC 33.3 g/dL (32.4-35.8); MEAN CORPUSCULAR VOLUME 84.8 fL (80-100); MEAN PLATELET VOLUME 8.2 fL (7.4-10.4); MONOCYTES # (AUTO) 0.66 x10^3/uL (0.2-0.8); MONOCYTES % (AUTO) 11 % (2-9); NEUTROPHILS # (AUTO) 3.97 x10^3/uL (1.8-6.8); NEUTROPHILS % (AUTO) 64 % (42-75); PLATELET COUNT 220 x10^3/uL (130-400); RED BLOOD COUNT 3.34 x10^6/uL (3.82-5.3); RED CELL DISTRIBUTION WIDTH 14.9 % (9.6-15.2)
[2017-03-24 05:37] LABS: ANION GAP 8 mmol/L (5-15); CALCIUM 8.6 mg/dL (8.5-10.1); CHLORIDE 101 mmol/L (98-107)
[2017-03-24 05:39] LABS: CREATININE 1.27 mg/dL (0.55-1.02)
[2017-03-24] MEDS: ACETAMINOPHEN 325 MG TABLET PO PRN (06:37)
[2017-03-24 07:59] VITALS: BP 120/70
[2017-03-24] MEDS: INSULIN GLARGINE 100 UNITS/ML, PEN SQ-INSULIN SCH (08:39)
[2017-03-24] MEDS: INSULIN LISPRO 100 UNITS/ML, PEN SQ-INSULIN SCH ×3 (08:40→16:00)
[2017-03-24] MEDS: DOXYCYCLINE 100MG TABLET PO SCH (08:40)
[2017-03-24] MEDS: METOPROLOL SUCCINATE 50 MG TAB.ER.24H PO SCH (08:41)
[2017-03-24] MEDS: CEFDINIR 300 MG CAPSULE PO SCH (08:42)
[2017-03-24] MEDS: APIXABAN 5 MG TABLET PO SCH (08:42)
[2017-03-24] MEDS: SODIUM CHLORIDE FLUSH 10ML SYR IVF SCH (08:44)
[2017-03-24] MEDS ORDERED: FUROSEMIDE 80 MG TABLET PO SCH (09:00)
[2017-03-24] MEDS ORDERED: LEVOTHYROXINE 75 MCG TABLET PO SCH (09:00)
[2017-03-24] MEDS ORDERED: CHOLECALCIFEROL 1,000 UNIT TABLET PO SCH (09:00)
[2017-03-24] MEDS ORDERED: SPIRONOLACTONE 50 MG TABLET PO SCH (09:00)
[2017-03-24] MEDS ORDERED: DOCUSATE 100 MG CAPSULE PO SCH (10:00)
[2017-03-24] MEDS ORDERED: GADOBUTROL 10 MMOL/10 ML PFS ONE (15:43)
== END 2017-03-24 16:48 | disposition home or self-care (01) ==
LOC: ED 12:11 → EDIP 13:47 → INTOOBSV 13:47 → 4WST 15:41
PROVIDERS: ADMIT Internal Medicine; ATTEND Internal Medicine
DX: I13.0 Hypertensive heart and chronic kidney disease with heart failure and stage 1 through stage 4 chronic kidney disease, or unspecified chronic kidney disease (principal); I50.32 Chronic diastolic (congestive) heart failure; N18.3 Chronic kidney disease, stage 3 (moderate); D63.8 Anemia in other chronic diseases classified elsewhere; E03.9 Hypothyroidism, unspecified; E11.22 Type 2 diabetes mellitus with diabetic chronic kidney disease; E78.5 Hyperlipidemia, unspecified; G47.33 Obstructive sleep apnea (adult) (pediatric); J43.9 Emphysema, unspecified; Z82.49 Family history of ischemic heart disease and other diseases of the circulatory system; Z86.711 Personal history of pulmonary embolism; Z87.891 Personal history of nicotine dependence; J96.10 Chronic respiratory failure, unspecified whether with hypoxia or hypercapnia; R19.7 Diarrhea, unspecified
CPT/HCPCS: 36415; 73720; 80048; 82040; 82962; 83605; 85025; 93922; 93971; 94640; 96372; 96374; 99285; A9585; G0378; J1644; J1815; J1940; J7517; J7620

== ENCOUNTER 2017-04-17 13:20 | Observation (INO) | payer OTHER ==
[~2017-04-17] VITALS: Ht 165.1 cm; Wt 149.1 kg
[2017-04-17 13:58] LABS: PROTHROMBIN TIME 10.4 Seconds (9.6-11.5)
[2017-04-17 14:01] LABS: BASOPHILS # (AUTO) 0.03 x10^3/uL (0-0.1); BASOPHILS % (AUTO) 1 % (0-1); EOSINOPHILS # (AUTO) 0.33 x10^3/uL (0-0.4); EOSINOPHILS % (AUTO) 5 % (1-7); LYMPHOCYTES # (AUTO) 0.99 x10^3/uL (1-3.4); LYMPHOCYTES % (AUTO) 15 % (22-44); MD NO; MEAN CORPUSCULAR HEMOGLOBIN 29.1 pg (27.0-34.8); MEAN CORPUSCULAR HGB CONC 33.5 g/dL (32.4-35.8); MEAN CORPUSCULAR VOLUME 86.9 fL (80-100); MEAN PLATELET VOLUME 8.9 fL (7.4-10.4); MONOCYTES # (AUTO) 0.43 x10^3/uL (0.2-0.8); MONOCYTES % (AUTO) 7 % (2-9); NEUTROPHILS # (AUTO) 4.75 x10^3/uL (1.8-6.8); NEUTROPHILS % (AUTO) 73 % (42-75); PLATELET COUNT 221 x10^3/uL (130-400); RED BLOOD COUNT 3.25 x10^6/uL (3.82-5.3); RED CELL DISTRIBUTION WIDTH 16.4 % (9.6-15.2)
[2017-04-17 14:03] LABS: ALANINE AMINOTRANSFERASE 26 U/L (12-78); ALBUMIN 3.5 g/dL (3.4-5.0); ANION GAP 6 mmol/L (5-15); CALCIUM 9.1 mg/dL (8.5-10.1); CHLORIDE 106 mmol/L (98-107); CREATININE 1.17 mg/dL (0.55-1.02)
[2017-04-17 14:05] LABS: ALKALINE PHOSPHATASE 68 U/L (45-117); BILIRUBIN,TOTAL 1.6 mg/dL (0.2-1.0); TOTAL PROTEIN 7.7 g/dL (6.4-8.2)
[2017-04-17] MEDS ORDERED: ONDANSETRON 2MG/ML, 2ML IVPush ONE (16:00)
[2017-04-17] MEDS ORDERED: MORPHINE SULFATE 4 MG/ML, 1ML IVPush ONE (16:00)
[2017-04-17] MEDS ORDERED: ONDANSETRON 2MG/ML, 2ML ONE (16:13)
[2017-04-17] MEDS ORDERED: MORPHINE SULFATE 4 MG/ML, 1ML ONE (16:13)
[2017-04-17] MEDS ORDERED: DIPHENHYDRAMINE 50 MG/ML, 1ML ONE (16:23)
[2017-04-17] MEDS ORDERED: DIPHENHYDRAMINE 50 MG/ML, 1ML IVPush ONE (16:30)
[2017-04-17] MEDS ORDERED: OMNIPAQUE 350 MG/ML, 100ML BOTTLE ONE (17:30)
[2017-04-17] MEDS ORDERED: FUROSEMIDE 40 MG/4 ML IV ONE (18:00)
[2017-04-17] MEDS ORDERED: POTA20TA89 PO (18:24)
[2017-04-17] MEDS ORDERED: AMLO5TAB2 PO (18:24)
[2017-04-17] MEDS ORDERED: FUROSEMIDE 40 MG/4 ML ONE (18:30)
[2017-04-17] MEDS ORDERED: HYDROcodone/APAP 5/325 TABLET PO PRN (20:00)
[2017-04-17] MEDS ORDERED: hydrALAzine 20 MG/ML, 1ML IVPush PRN (20:00)
[2017-04-17] MEDS ORDERED: POLYETHYLENE GLYCOL 17 GM PACKET PO PRN (20:00)
[2017-04-17] MEDS ORDERED: DEXTROSE 4 GM TAB.CHEW PO PRN (20:30)
[2017-04-17] MEDS ORDERED: GLUCAGON 1 MG IM PRN (20:30)
[2017-04-17] MEDS ORDERED: DEXTROSE 50%, 50ML SYRINGE IVPush PRN (20:30)
[2017-04-17] MEDS ORDERED: ALBUTEROL SULFATE 2.5 MG/3 ML NPPB PRN (20:30)
[2017-04-17 20:50] VITALS: BP 107/68
[2017-04-17] MEDS ORDERED: INSULIN ASPART 100 UNITS/ML, VIAL SQ-INSULIN SCH (21:00)
[2017-04-17] MEDS ORDERED: MONTELUKAST 10 MG TABLET PO SCH (21:00)
[2017-04-17] MEDS ORDERED: SIMVASTATIN 20 MG TABLET PO SCH (21:00)
[2017-04-17] MEDS ORDERED: ALBUTEROL/IPRATROPIUM 2.5MG/0.5MG, 3 ML NPPB SCH ×2 (21:00→21:06)
[2017-04-17] MEDS ORDERED: INSULIN LISPRO 100 UNITS/ML, PEN SQ-INSULIN SCH (21:05)
[2017-04-17] MEDS: AMLODIPINE 5 MG TABLET PO SCH (22:29)
[2017-04-17] MEDS: METOPROLOL SUCCINATE 100 MG TAB.ER.24H PO SCH (22:30)
[2017-04-17] MEDS: APIXABAN 5 MG TABLET PO SCH (22:40)
[2017-04-17] MEDS: SODIUM CHLORIDE FLUSH 10ML SYR IVF SCH ×2 (22:40)
[2017-04-18] MEDS ORDERED: FUROSEMIDE 40 MG/4 ML IV SCH
[2017-04-18] MEDS: INSULIN GLARGINE 100 UNITS/ML, PEN SQ-INSULIN SCH ×2 (00:25→08:14)
[2017-04-18] MEDS: INSULIN LISPRO 100 UNITS/ML, PEN SQ-INSULIN SCH ×4 (00:26→16:48)
[2017-04-18 00:28] VITALS: BP 107/68
[2017-04-18 02:22] VITALS: BP 107/69
[2017-04-18 05:09] LABS: BASOPHILS # (AUTO) 0.01 x10^3/uL (0-0.1); BASOPHILS % (AUTO) 0 % (0-1); EOSINOPHILS # (AUTO) 0.34 x10^3/uL (0-0.4); EOSINOPHILS % (AUTO) 6 % (1-7); LYMPHOCYTES % (AUTO) 18 % (22-44); MD NO; MEAN CORPUSCULAR HEMOGLOBIN 28.9 pg (27.0-34.8); MEAN CORPUSCULAR HGB CONC 33.4 g/dL (32.4-35.8); MEAN CORPUSCULAR VOLUME 86.3 fL (80-100); MEAN PLATELET VOLUME 8.7 fL (7.4-10.4); MONOCYTES # (AUTO) 0.47 x10^3/uL (0.2-0.8); MONOCYTES % (AUTO) 9 % (2-9); NEUTROPHILS % (AUTO) 66 % (42-75); PLATELET COUNT 212 x10^3/uL (130-400); RED BLOOD COUNT 3.12 x10^6/uL (3.82-5.3); RED CELL DISTRIBUTION WIDTH 16.6 % (9.6-15.2)
[2017-04-18 05:18] LABS: ANION GAP 8 mmol/L (5-15); CALCIUM 9.2 mg/dL (8.5-10.1); CHLORIDE 105 mmol/L (98-107)
[2017-04-18 05:29] LABS: CREATININE 1.16 mg/dL (0.55-1.02)
[2017-04-18 06:18] LABS: HEMOGLOBIN A1C 8.6 % (4.2-6.3)
[2017-04-18] MEDS: ALBUTEROL/IPRATROPIUM 2.5MG/0.5MG, 3 ML NPPB SCH ×2 (07:00→10:54)
[2017-04-18 07:55] VITALS: BP 111/69
[2017-04-18] MEDS: METOPROLOL SUCCINATE 100 MG TAB.ER.24H PO SCH (08:14)
[2017-04-18] MEDS: SODIUM CHLORIDE FLUSH 10ML SYR IVF SCH ×2 (08:34→08:35)
[2017-04-18] MEDS ORDERED: LEVOTHYROXINE 75 MCG TABLET PO SCH ×2 (09:00)
[2017-04-18] MEDS ORDERED: FUROSEMIDE 80 MG TABLET PO SCH (09:00)
[2017-04-18] MEDS ORDERED: POTASSIUM CHLORIDE 20 MEQ TAB.ER.PRT PO SCH (09:00)
[2017-04-18] MEDS ORDERED: CHOLECALCIFEROL 1,000 UNIT TABLET PO SCH (09:00)
[2017-04-18] MEDS ORDERED: SPIRONOLACTONE 50 MG TABLET PO SCH (09:00)
[2017-04-18] MEDS ORDERED: LEVOTHYROXINE 100 MCG TABLET ONE (09:55)
[2017-04-18] MEDS: AMLODIPINE 5 MG TABLET PO SCH (09:57)
[2017-04-18] MEDS: APIXABAN 5 MG TABLET PO SCH (09:57)
[2017-04-18] MEDS ORDERED: LEVO100T PO (11:00)
[2017-04-18] MEDS ORDERED: ALBUTEROL/IPRATROPIUM 2.5MG/0.5MG, 3 ML NPPB SCH (11:04)
[2017-04-18 14:20] VITALS: BP 128/78
== END 2017-04-18 17:10 | disposition home or self-care (01) ==
LOC: ED 17:30 → EDIP 18:28 → INTOOBSV 18:28 → 3NE 20:46 → UNDODISIN 04-18 17:10
PROVIDERS: ADMIT Family Medicine; ATTEND Family Medicine
DX: R06.02 Shortness of breath (principal); J44.9 Chronic obstructive pulmonary disease, unspecified; I13.0 Hypertensive heart and chronic kidney disease with heart failure and stage 1 through stage 4 chronic kidney disease, or unspecified chronic kidney disease; I50.33 Acute on chronic diastolic (congestive) heart failure; N18.3 Chronic kidney disease, stage 3 (moderate); E11.22 Type 2 diabetes mellitus with diabetic chronic kidney disease; R53.81 Other malaise; E66.01 Morbid (severe) obesity due to excess calories; G47.33 Obstructive sleep apnea (adult) (pediatric); S81.001D Unspecified open wound, right knee, subsequent encounter; X58.XXXD Exposure to other specified factors, subsequent encounter; I89.0 Lymphedema, not elsewhere classified; D63.8 Anemia in other chronic diseases classified elsewhere; Z87.891 Personal history of nicotine dependence; Z82.49 Family history of ischemic heart disease and other diseases of the circulatory system; Z83.3 Family history of diabetes mellitus; Z68.43 Body mass index [BMI] 50.0-59.9, adult
CPT/HCPCS: 36415; 71275; 73564; 80048; 80053; 82962; 83036; 83880; 84443; 85025; 85610; 93005; 93971; 94640; 96372; 96374; 96375; 97163; 99285; G0378; G8978; G8979; G8980; J1200; J1815; J1940; J2405; J7517; Q9967; J7620

== ENCOUNTER 2017-04-24 13:52 | Inpatient (IN) | payer OTHER ==
[~2017-04-24] VITALS: Ht 165.1 cm; Wt 149.7 kg
[~2017-04-24 13:52] MED LIST changes: +AMLO5TAB2 PO; +LEVO100T PO; +POTA20TA89 PO
[2017-04-24] MEDS ORDERED: SODIUM CHLORIDE FLUSH 10ML SYR IVF ONE (14:30)
[2017-04-24 14:41] LABS: BASOPHILS # (AUTO) 0.02 x10^3/uL (0-0.1); BASOPHILS % (AUTO) 0 % (0-1); EOSINOPHILS # (AUTO) 0.37 x10^3/uL (0-0.4); EOSINOPHILS % (AUTO) 7 % (1-7); LYMPHOCYTES # (AUTO) 0.95 x10^3/uL (1-3.4); LYMPHOCYTES % (AUTO) 16 % (22-44); MD NO; MEAN CORPUSCULAR HEMOGLOBIN 28.6 pg (27.0-34.8); MEAN CORPUSCULAR HGB CONC 32.6 g/dL (32.4-35.8); MEAN CORPUSCULAR VOLUME 87.7 fL (80-100); MEAN PLATELET VOLUME 8.3 fL (7.4-10.4); MONOCYTES # (AUTO) 0.45 x10^3/uL (0.2-0.8); MONOCYTES % (AUTO) 8 % (2-9); NEUTROPHILS # (AUTO) 3.98 x10^3/uL (1.8-6.8); NEUTROPHILS % (AUTO) 69 % (42-75); PLATELET COUNT 268 x10^3/uL (130-400); RED BLOOD COUNT 3.27 x10^6/uL (3.82-5.3); RED CELL DISTRIBUTION WIDTH 17.6 % (9.6-15.2)
[2017-04-24 14:45] LABS: INTERNATIONAL NORMALIZED RATIO 1.05 (0.93-1.1); PROTHROMBIN TIME 10.9 Seconds (9.6-11.5)
[2017-04-24 14:50] LABS: ALBUMIN 3.6 g/dL (3.4-5.0); ANION GAP 8 mmol/L (5-15); CALCIUM 8.9 mg/dL (8.5-10.1); CHLORIDE 103 mmol/L (98-107)
[2017-04-24 14:55] LABS: ALANINE AMINOTRANSFERASE 24 U/L (12-78); ALKALINE PHOSPHATASE 68 U/L (45-117); BILIRUBIN,TOTAL 2.2 mg/dL (0.2-1.0); CREATININE 1.57 mg/dL (0.55-1.02); TOTAL PROTEIN 7.6 g/dL (6.4-8.2)
[2017-04-24 15:06] LABS: TROPONIN I < 0.015 ng/mL (0.000-0.045)
[2017-04-24] MEDS ORDERED: SODIUM CHLORIDE FLUSH 10ML SYR IVF PRN (15:30)
[2017-04-24 16:51] VITALS: BP 113/73
[2017-04-24] MEDS ORDERED: HYDROcodone/APAP 5/325 TABLET PO PRN (19:00)
[2017-04-24] MEDS ORDERED: POLYETHYLENE GLYCOL 17 GM PACKET PO PRN (19:00)
[2017-04-24] MEDS ORDERED: LABETALOL 5MG/ML, 20ML IVPush PRN (19:00)
[2017-04-24] MEDS ORDERED: ONDANSETRON 2MG/ML, 2ML IVPush PRN (19:00)
[2017-04-24] MEDS ORDERED: ONDANSETRON ODT 4 MG PO PRN (19:00)
[2017-04-24 19:22] VITALS: BP 111/74
[2017-04-24] MEDS ORDERED: ALBUTEROL SULFATE 2.5 MG/3 ML NPPB PRN (20:00)
[2017-04-24] MEDS ORDERED: INSULIN GLARGINE 100 UNITS/ML, PEN SQ-INSULIN SCH (21:00)
[2017-04-24] MEDS ORDERED: MONTELUKAST 10 MG TABLET PO SCH (21:00)
[2017-04-24] MEDS: SODIUM CHLORIDE 0.9% 1,000 ML IV SCH (21:52)
[2017-04-24] MEDS: APIXABAN 5 MG TABLET PO SCH (21:53)
[2017-04-24] MEDS: HEPARIN 5,000 UNITS/ML, 1ML SQ SCH (21:53)
[2017-04-24] MEDS: AMLODIPINE 5 MG TABLET PO SCH (21:53)
[2017-04-24] MEDS: METOPROLOL SUCCINATE 100 MG TAB.ER.24H PO SCH (21:53)
[2017-04-24] MEDS: INSULIN LISPRO 100 UNITS/ML, PEN SQ-INSULIN SCH (21:55)
[2017-04-25] MEDS: ACETAMINOPHEN 325 MG TABLET PO PRN ×2 (01:33→07:10)
[2017-04-25 01:40] VITALS: BP 118/69
[2017-04-25] MEDS: SODIUM CHLORIDE 0.9% 1,000 ML IV SCH (05:18)
[2017-04-25 05:37] LABS: BASOPHILS # (AUTO) 0.03 x10^3/uL (0-0.1); BASOPHILS % (AUTO) 1 % (0-1); EOSINOPHILS # (AUTO) 0.37 x10^3/uL (0-0.4); EOSINOPHILS % (AUTO) 7 % (1-7); LYMPHOCYTES # (AUTO) 1.32 x10^3/uL (1-3.4); LYMPHOCYTES % (AUTO) 23 % (22-44); MD NO; MEAN CORPUSCULAR HEMOGLOBIN 29.8 pg (27.0-34.8); MEAN CORPUSCULAR HGB CONC 33.6 g/dL (32.4-35.8); MEAN CORPUSCULAR VOLUME 88.4 fL (80-100); MEAN PLATELET VOLUME 8.7 fL (7.4-10.4); MONOCYTES % (AUTO) 9 % (2-9); NEUTROPHILS # (AUTO) 3.43 x10^3/uL (1.8-6.8); NEUTROPHILS % (AUTO) 61 % (42-75); PLATELET COUNT 253 x10^3/uL (130-400); RED BLOOD COUNT 3.07 x10^6/uL (3.82-5.3)
[2017-04-25 05:47] LABS: ALBUMIN 3.4 g/dL (3.4-5.0); ANION GAP 7 mmol/L (5-15); CALCIUM 9.2 mg/dL (8.5-10.1); CHLORIDE 103 mmol/L (98-107)
[2017-04-25 05:50] LABS: ALANINE AMINOTRANSFERASE 23 U/L (12-78); ALKALINE PHOSPHATASE 66 U/L (45-117); BILIRUBIN,TOTAL 2.6 mg/dL (0.2-1.0); CREATININE 1.19 mg/dL (0.55-1.02); TOTAL PROTEIN 7.4 g/dL (6.4-8.2)
[2017-04-25] MEDS ORDERED: LEVOTHYROXINE 100 MCG TABLET PO SCH (06:00)
[2017-04-25] MEDS: HEPARIN 5,000 UNITS/ML, 1ML SQ SCH ×2 (06:07→14:17)
[2017-04-25 07:00] VITALS: BP 99/64
[2017-04-25] MEDS: INSULIN LISPRO 100 UNITS/ML, PEN SQ-INSULIN SCH ×2 (08:28→12:07)
[2017-04-25] MEDS: APIXABAN 5 MG TABLET PO SCH (08:29)
[2017-04-25] MEDS: AMLODIPINE 5 MG TABLET PO SCH (08:29)
[2017-04-25] MEDS: METOPROLOL SUCCINATE 100 MG TAB.ER.24H PO SCH (08:30)
[2017-04-25] MEDS ORDERED: SENNA/DOCUSATE TABLET PO SCH (09:00)
[2017-04-25] MEDS ORDERED: SPIRONOLACTONE 50 MG TABLET PO SCH (09:00)
[2017-04-25] MEDS ORDERED: CHOLECALCIFEROL 1,000 UNIT TABLET PO SCH (09:00)
== END 2017-04-25 16:45 | disposition home or self-care (01) | DRG 683 ==
LOC: ED 15:27 → EDIP 15:28 → ED 16:11 → 3NE 16:26 → DCLOUNGE 04-25 16:40
PROVIDERS: ADMIT Family Medicine; ATTEND Family Medicine
DX: N17.9 Acute kidney failure, unspecified (principal); D59.1 Other autoimmune hemolytic anemias; J96.10 Chronic respiratory failure, unspecified whether with hypoxia or hypercapnia; D89.9 Disorder involving the immune mechanism, unspecified; E11.22 Type 2 diabetes mellitus with diabetic chronic kidney disease; E11.65 Type 2 diabetes mellitus with hyperglycemia; I13.0 Hypertensive heart and chronic kidney disease with heart failure and stage 1 through stage 4 chronic kidney disease, or unspecified chronic kidney disease; I50.32 Chronic diastolic (congestive) heart failure; J44.1 Chronic obstructive pulmonary disease with (acute) exacerbation; E66.01 Morbid (severe) obesity due to excess calories; N18.3 Chronic kidney disease, stage 3 (moderate); E03.9 Hypothyroidism, unspecified; E55.9 Vitamin D deficiency, unspecified; E78.5 Hyperlipidemia, unspecified; F41.1 Generalized anxiety disorder; G47.33 Obstructive sleep apnea (adult) (pediatric); I87.8 Other specified disorders of veins; Z82.49 Family history of ischemic heart disease and other diseases of the circulatory system; Z86.711 Personal history of pulmonary embolism; Z86.72 Personal history of thrombophlebitis; Z87.891 Personal history of nicotine dependence; Z99.81 Dependence on supplemental oxygen; Z90.49 Acquired absence of other specified parts of digestive tract; Z90.710 Acquired absence of both cervix and uterus
CPT/HCPCS: 36415; 71045; 76700; 80053; 82436; 82570; 82962; 83735; 83880; 84100; 84133; 84300; 84439; 84484; 85025; 85610; 85730; 93005; 99285; J1644; J1815; J7030; J7517

== ENCOUNTER 2017-05-09 12:46 | Emergency (ER) | payer OTHER ==
[~2017-05-09] VITALS: Ht 165.1 cm; Wt 148.0 kg
[2017-05-09 13:31] LABS: BASOPHILS # (AUTO) 0.02 x10^3/uL (0-0.1); BASOPHILS % (AUTO) 0 % (0-1); EOSINOPHILS # (AUTO) 0.26 x10^3/uL (0-0.4); EOSINOPHILS % (AUTO) 4 % (1-7); LYMPHOCYTES # (AUTO) 0.87 x10^3/uL (1-3.4); LYMPHOCYTES % (AUTO) 13 % (22-44); MD NO; MEAN CORPUSCULAR VOLUME 90.8 fL (80-100); MONOCYTES # (AUTO) 0.52 x10^3/uL (0.2-0.8); MONOCYTES % (AUTO) 8 % (2-9); NEUTROPHILS # (AUTO) 5.24 x10^3/uL (1.8-6.8); NEUTROPHILS % (AUTO) 76 % (42-75); PLATELET COUNT 253 x10^3/uL (130-400); RED CELL DISTRIBUTION WIDTH 18.3 % (9.6-15.2)
[2017-05-09 13:41] LABS: INTERNATIONAL NORMALIZED RATIO 0.99 (0.93-1.1); PROTHROMBIN TIME 10.3 Seconds (9.6-11.5)
[2017-05-09 13:44] LABS: ALBUMIN 3.8 g/dL (3.4-5.0); ANION GAP 6 mmol/L (5-15); CHLORIDE 102 mmol/L (98-107); CREATININE 1.08 mg/dL (0.55-1.02)
[2017-05-09] MEDS ORDERED: METOCLOPRAMIDE 5 MG/ML, 2ML ONE (15:39)
[2017-05-09] MEDS ORDERED: DIPHENHYDRAMINE 50 MG/ML, 1ML ONE (15:39)
[2017-05-09] MEDS ORDERED: KETOROLAC 30 MG/1 ML ONE (15:39)
[2017-05-09] MEDS ORDERED: DIPHENHYDRAMINE 50 MG/ML, 1ML IVPush ONE (16:00)
[2017-05-09] MEDS ORDERED: METOCLOPRAMIDE 5 MG/ML, 2ML IVPush ONE (16:00)
[2017-05-09] MEDS ORDERED: KETOROLAC 30 MG/1 ML IVPush ONE (16:00)
[2017-05-09] MEDS ORDERED: SODIUM CHLORIDE FLUSH 10ML SYR IVF ONE (16:00)
[2017-05-09 16:45] VITALS: BP 113/64
== END 2017-05-09 17:03 | disposition home or self-care (01) ==
LOC: ED 14:00
DX: R51 Headache (principal); J44.9 Chronic obstructive pulmonary disease, unspecified; E11.9 Type 2 diabetes mellitus without complications; I11.0 Hypertensive heart disease with heart failure; I50.9 Heart failure, unspecified; M19.90 Unspecified osteoarthritis, unspecified site; Z86.718 Personal history of other venous thrombosis and embolism; Z90.49 Acquired absence of other specified parts of digestive tract; Z87.891 Personal history of nicotine dependence; E66.01 Morbid (severe) obesity due to excess calories
CPT/HCPCS: 36415; 70450; 80048; 82040; 85025; 85610; 85730; 96374; 96375; 99285; J1200; J1885; J2765

== ENCOUNTER 2017-05-15 13:15 | Inpatient (IN) | payer OTHER ==
[~2017-05-15] VITALS: Ht 165.1 cm; Wt 140.9 kg
[2017-05-15 13:50] LABS: ABSOLUTE RETICS # 0.167 x10^6/uL (0.5-2.5); RETICULOCYTE COUNT % 6.52 % (0.5-1.5)
[2017-05-15 13:54] LABS: MEAN CORPUSCULAR HEMOGLOBIN 31.1 pg (27.0-34.8); MEAN CORPUSCULAR VOLUME 91.5 fL (80-100); MEAN PLATELET VOLUME 7.9 fL (7.4-10.4); PLATELET COUNT 345 x10^3/uL (130-400); RED BLOOD COUNT 2.56 x10^6/uL (3.82-5.3); RED CELL DISTRIBUTION WIDTH 17.9 % (9.6-15.2)
[2017-05-15 14:00] LABS: ALANINE AMINOTRANSFERASE 24 U/L (12-78); ALBUMIN 3.5 g/dL (3.4-5.0); ANION GAP 10 mmol/L (5-15); CALCIUM 8.6 mg/dL (8.5-10.1); CHLORIDE 103 mmol/L (98-107); CREATININE 1.37 mg/dL (0.55-1.02)
[2017-05-15 14:01] LABS: BASOPHILS # (AUTO) 0.01 x10^3/uL (0-0.1); BASOPHILS % (AUTO) 0 % (0-1); EOSINOPHILS # (AUTO) 0.01 x10^3/uL (0-0.4); EOSINOPHILS % (AUTO) 0 % (1-7); LYMPHOCYTES # (AUTO) 0.81 x10^3/uL (1-3.4); LYMPHOCYTES % (AUTO) 11 % (22-44); MD NO; MONOCYTES # (AUTO) 0.33 x10^3/uL (0.2-0.8); MONOCYTES % (AUTO) 4 % (2-9); NEUTROPHILS # (AUTO) 6.48 x10^3/uL (1.8-6.8); NEUTROPHILS % (AUTO) 85 % (42-75)
[2017-05-15 14:05] LABS: ALKALINE PHOSPHATASE 65 U/L (45-117); BILIRUBIN,TOTAL 2.2 mg/dL (0.2-1.0); TOTAL PROTEIN 7.7 g/dL (6.4-8.2); TROPONIN I < 0.015 ng/mL (0.000-0.045)
[2017-05-15] MEDS ORDERED: HYDROcodone/APAP 5/325 TABLET PO PRN (16:00)
[2017-05-15] MEDS ORDERED: ONDANSETRON ODT 4 MG PO PRN (16:30)
[2017-05-15 17:09] LABS: THYROID STIMULATING HORMONE 0.812 mIU/L (0.358-3.740)
[2017-05-15 17:43] VITALS: BP 153/76
[2017-05-15] MEDS: INSULIN LISPRO 100 UNITS/ML, PEN SQ-INSULIN SCH ×2 (17:57→20:44)
[2017-05-15 19:20] VITALS: BP 115/71
[2017-05-15] MEDS: ALBUTEROL/IPRATROPIUM 2.5MG/0.5MG, 3 ML NPPB SCH (20:11)
[2017-05-15] MEDS: AMLODIPINE 5 MG TABLET PO SCH (20:42)
[2017-05-15] MEDS: APIXABAN 5 MG TABLET PO SCH (20:42)
[2017-05-15] MEDS: SIMVASTATIN 20 MG TABLET PO SCH (20:42)
[2017-05-15] MEDS: METOPROLOL SUCCINATE 100 MG TAB.ER.24H PO SCH (20:43)
[2017-05-15] MEDS: INSULIN GLARGINE 100 UNITS/ML, PEN SQ-INSULIN SCH (20:46)
[2017-05-16 00:43] VITALS: BP 115/71
[2017-05-16] MEDS: ACETAMINOPHEN 325 MG TABLET PO PRN ×3 (02:22→17:33)
[2017-05-16] MEDS: LEVOTHYROXINE 100 MCG TABLET PO SCH (05:18)
[2017-05-16 05:49] LABS: MEAN CORPUSCULAR HEMOGLOBIN 30.2 pg (27.0-34.8); MEAN CORPUSCULAR HGB CONC 32.8 g/dL (32.4-35.8); MEAN CORPUSCULAR VOLUME 92.2 fL (80-100); MEAN PLATELET VOLUME 7.3 fL (7.4-10.4); PLATELET COUNT 324 x10^3/uL (130-400); RED BLOOD COUNT 2.41 x10^6/uL (3.82-5.3); RED CELL DISTRIBUTION WIDTH 17.8 % (9.6-15.2)
[2017-05-16 05:58] LABS: ALBUMIN 3.2 g/dL (3.4-5.0); ANION GAP 8 mmol/L (5-15); CALCIUM 8.9 mg/dL (8.5-10.1); CHLORIDE 104 mmol/L (98-107)
[2017-05-16 06:02] LABS: ALANINE AMINOTRANSFERASE 21 U/L (12-78); ALKALINE PHOSPHATASE 60 U/L (45-117); BILIRUBIN,TOTAL 2.3 mg/dL (0.2-1.0); CREATININE 1.08 mg/dL (0.55-1.02)
[2017-05-16 06:24] LABS: MD YES
[2017-05-16 06:42] LABS: BAND#(MANUAL) 0.15 x10^3/uL; BANDS%(MANUAL) 2 % (0-7); LYMPH#(MANUAL) 2.07 x10^3/uL (1-3.4); LYMPHS% (MANUAL) 28 % (22-44); MONOS% (MANUAL) 4 % (2-9); SEG#(MANUAL) 4.88 x10^3/uL (1.8-6.8); SEGS% (MANUAL) 66 % (42-75)
[2017-05-16 06:43] LABS: <PLATELET ESTIMATE> ADEQUATE; <PLT MORPHOLOGY> NORMAL PLT MORPH; ANISOCYTOSIS 1+
[2017-05-16] MEDS: ALBUTEROL/IPRATROPIUM 2.5MG/0.5MG, 3 ML NPPB SCH ×3 (06:55→20:31)
[2017-05-16 07:22] VITALS: BP 107/56
[2017-05-16] MEDS: FUROSEMIDE 80 MG TABLET PO SCH (07:26)
[2017-05-16] MEDS: APIXABAN 5 MG TABLET PO SCH ×2 (07:26→21:17)
[2017-05-16] MEDS: POTASSIUM CHLORIDE 20 MEQ TAB.ER.PRT PO SCH (07:26)
[2017-05-16] MEDS: CHOLECALCIFEROL 1,000 UNIT TABLET PO SCH (07:26)
[2017-05-16] MEDS: SPIRONOLACTONE 100 MG TABLET PO SCH (07:27)
[2017-05-16] MEDS: METOPROLOL SUCCINATE 100 MG TAB.ER.24H PO SCH ×2 (07:27→21:18)
[2017-05-16] MEDS: AMLODIPINE 5 MG TABLET PO SCH ×2 (07:27→21:17)
[2017-05-16] MEDS: INSULIN LISPRO 100 UNITS/ML, PEN SQ-INSULIN SCH ×4 (07:29→21:17)
[2017-05-16] MEDS: INSULIN GLARGINE 100 UNITS/ML, PEN SQ-INSULIN SCH ×2 (07:30→21:16)
[2017-05-16] MEDS ORDERED: AZITHROMYCIN 500 MG TABLET PO ONE (08:00)
[2017-05-16] MEDS ORDERED: SPIRONOLACTONE 50 MG TABLET PO SCH (09:00)
[2017-05-16 13:41] VITALS: BP 137/76
[2017-05-16 19:11] VITALS: BP 128/77
[2017-05-16] MEDS: SIMVASTATIN 20 MG TABLET PO SCH (21:17)
[2017-05-17 00:05] VITALS: BP 147/77
[2017-05-17 05:20] LABS: ALBUMIN 3.4 g/dL (3.4-5.0); ANION GAP 9 mmol/L (5-15); CALCIUM 9.3 mg/dL (8.5-10.1); CHLORIDE 101 mmol/L (98-107)
[2017-05-17 05:34] LABS: ALANINE AMINOTRANSFERASE 21 U/L (12-78); ALKALINE PHOSPHATASE 65 U/L (45-117); BILIRUBIN,TOTAL 1.9 mg/dL (0.2-1.0); CREATININE 1.03 mg/dL (0.55-1.02); TOTAL PROTEIN 7.5 g/dL (6.4-8.2)
[2017-05-17 05:37] LABS: MEAN CORPUSCULAR HEMOGLOBIN 30.6 pg (27.0-34.8); MEAN CORPUSCULAR HGB CONC 32.9 g/dL (32.4-35.8); MEAN CORPUSCULAR VOLUME 93.2 fL (80-100); MEAN PLATELET VOLUME 7.8 fL (7.4-10.4); PLATELET COUNT 349 x10^3/uL (130-400); RED BLOOD COUNT 2.46 x10^6/uL (3.82-5.3); RED CELL DISTRIBUTION WIDTH 18.3 % (9.6-15.2)
[2017-05-17] MEDS: LEVOTHYROXINE 100 MCG TABLET PO SCH (06:06)
[2017-05-17 06:29] LABS: BASOPHILS # (AUTO) 0.02 x10^3/uL (0-0.1); BASOPHILS % (AUTO) 0 % (0-1); EOSINOPHILS # (AUTO) 0.01 x10^3/uL (0-0.4); EOSINOPHILS % (AUTO) 0 % (1-7); LYMPHOCYTES # (AUTO) 1.12 x10^3/uL (1-3.4); LYMPHOCYTES % (AUTO) 13 % (22-44); MD SCAN; MONOCYTES # (AUTO) 0.63 x10^3/uL (0.2-0.8); MONOCYTES % (AUTO) 7 % (2-9); NEUTROPHILS # (AUTO) 6.89 x10^3/uL (1.8-6.8); NEUTROPHILS % (AUTO) 80 % (42-75)
[2017-05-17 07:00] VITALS: BP 118/72
[2017-05-17] MEDS: POTASSIUM CHLORIDE 20 MEQ TAB.ER.PRT PO SCH (07:43)
[2017-05-17] MEDS: SPIRONOLACTONE 100 MG TABLET PO SCH (07:43)
[2017-05-17] MEDS: ACETAMINOPHEN 325 MG TABLET PO PRN (07:43)
[2017-05-17] MEDS: FUROSEMIDE 80 MG TABLET PO SCH (07:43)
[2017-05-17] MEDS: AMLODIPINE 5 MG TABLET PO SCH ×2 (07:43→20:46)
[2017-05-17] MEDS: CHOLECALCIFEROL 1,000 UNIT TABLET PO SCH (07:44)
[2017-05-17] MEDS: APIXABAN 5 MG TABLET PO SCH ×2 (07:44→20:46)
[2017-05-17] MEDS: METOPROLOL SUCCINATE 100 MG TAB.ER.24H PO SCH ×2 (07:44→20:46)
[2017-05-17] MEDS: INSULIN GLARGINE 100 UNITS/ML, PEN SQ-INSULIN SCH ×2 (07:49→20:47)
[2017-05-17] MEDS: INSULIN LISPRO 100 UNITS/ML, PEN SQ-INSULIN SCH ×4 (07:51→20:47)
[2017-05-17] MEDS: ALBUTEROL/IPRATROPIUM 2.5MG/0.5MG, 3 ML NPPB SCH ×2 (09:00→20:03)
[2017-05-17 12:57] VITALS: BP 108/66
[2017-05-17] MEDS: DOCUSATE 100 MG CAPSULE PO PRN (16:48)
[2017-05-17 18:44] VITALS: BP 123/63
[2017-05-17] MEDS: SIMVASTATIN 20 MG TABLET PO SCH (20:46)
[2017-05-18 03:13] VITALS: BP 114/74
[2017-05-18 04:40] LABS: BASOPHILS # (AUTO) 0.01 x10^3/uL (0-0.1); BASOPHILS % (AUTO) 0 % (0-1); EOSINOPHILS # (AUTO) 0.03 x10^3/uL (0-0.4); EOSINOPHILS % (AUTO) 0 % (1-7); LYMPHOCYTES % (AUTO) 17 % (22-44); MD NO; MEAN CORPUSCULAR HEMOGLOBIN 30.3 pg (27.0-34.8); MEAN CORPUSCULAR HGB CONC 32.4 g/dL (32.4-35.8); MEAN CORPUSCULAR VOLUME 93.5 fL (80-100); MEAN PLATELET VOLUME 7.6 fL (7.4-10.4); MONOCYTES # (AUTO) 0.72 x10^3/uL (0.2-0.8); MONOCYTES % (AUTO) 9 % (2-9); NEUTROPHILS # (AUTO) 5.96 x10^3/uL (1.8-6.8); NEUTROPHILS % (AUTO) 74 % (42-75); PLATELET COUNT 362 x10^3/uL (130-400); RED BLOOD COUNT 2.47 x10^6/uL (3.82-5.3)
[2017-05-18 04:52] LABS: ALANINE AMINOTRANSFERASE 22 U/L (12-78); ALBUMIN 3.3 g/dL (3.4-5.0); ANION GAP 7 mmol/L (5-15); CALCIUM 9.1 mg/dL (8.5-10.1); CHLORIDE 103 mmol/L (98-107)
[2017-05-18 04:55] LABS: ALKALINE PHOSPHATASE 64 U/L (45-117); BILIRUBIN,TOTAL 1.9 mg/dL (0.2-1.0); TOTAL PROTEIN 7.1 g/dL (6.4-8.2)
[2017-05-18] MEDS: ACETAMINOPHEN 325 MG TABLET PO PRN ×2 (05:06→14:27)
[2017-05-18] MEDS: LEVOTHYROXINE 100 MCG TABLET PO SCH (05:06)
[2017-05-18] MEDS: INSULIN LISPRO 100 UNITS/ML, PEN SQ-INSULIN SCH ×4 (07:00→21:25)
[2017-05-18 07:25] VITALS: BP 115/72
[2017-05-18] MEDS: ALBUTEROL/IPRATROPIUM 2.5MG/0.5MG, 3 ML NPPB SCH ×2 (09:24→19:19)
[2017-05-18] MEDS: APIXABAN 5 MG TABLET PO SCH ×2 (10:27→20:27)
[2017-05-18] MEDS: CHOLECALCIFEROL 1,000 UNIT TABLET PO SCH (10:28)
[2017-05-18] MEDS: FUROSEMIDE 80 MG TABLET PO SCH (10:28)
[2017-05-18] MEDS: METOPROLOL SUCCINATE 100 MG TAB.ER.24H PO SCH ×2 (10:29→20:27)
[2017-05-18] MEDS: SPIRONOLACTONE 100 MG TABLET PO SCH (10:30)
[2017-05-18] MEDS: POTASSIUM CHLORIDE 20 MEQ TAB.ER.PRT PO SCH (10:31)
[2017-05-18] MEDS: INSULIN GLARGINE 100 UNITS/ML, PEN SQ-INSULIN SCH ×2 (10:32→21:26)
[2017-05-18] MEDS: AMLODIPINE 5 MG TABLET PO SCH ×2 (10:35→20:27)
[2017-05-18 11:08] LABS: ABSOLUTE RETICS # 0.26 x10^6/uL (0.5-2.5); RED BLOOD COUNT 2.55 x10^6/uL (3.82-5.3); RETICULOCYTE COUNT % 10.19 % (0.5-1.5)
[2017-05-18 11:22] LABS: ALBUMIN 3.4 g/dL (3.4-5.0); BILIRUBIN, DIRECT 0.4 mg/dL (0.1-0.2)
[2017-05-18 11:23] LABS: BILIRUBIN,INDIRECT 1.4 mg/dL (0.0-2.0); BILIRUBIN,TOTAL 1.8 mg/dL (0.2-1.0); TOTAL PROTEIN 7.2 g/dL (6.4-8.2)
[2017-05-18 14:50] VITALS: BP 121/70
[2017-05-18] MEDS ORDERED: INSULIN LISPRO 100 UNITS/ML, PEN SQ-INSULIN SCH (18:00)
[2017-05-18 19:03] VITALS: BP 108/66
[2017-05-18] MEDS: SIMVASTATIN 20 MG TABLET PO SCH (20:27)
[2017-05-19 03:27] VITALS: BP 123/78
[2017-05-19 04:17] LABS: BASOPHILS % (AUTO) 0 % (0-1); EOSINOPHILS # (AUTO) 0.02 x10^3/uL (0-0.4); EOSINOPHILS % (AUTO) 0 % (1-7); LYMPHOCYTES % (AUTO) 13 % (22-44); MD NO; MEAN CORPUSCULAR HEMOGLOBIN 30.1 pg (27.0-34.8); MEAN CORPUSCULAR HGB CONC 32.4 g/dL (32.4-35.8); MEAN CORPUSCULAR VOLUME 92.9 fL (80-100); MEAN PLATELET VOLUME 7.8 fL (7.4-10.4); MONOCYTES # (AUTO) 0.13 x10^3/uL (0.2-0.8); MONOCYTES % (AUTO) 1 % (2-9); NEUTROPHILS # (AUTO) 8.29 x10^3/uL (1.8-6.8); NEUTROPHILS % (AUTO) 85 % (42-75); PLATELET COUNT 340 x10^3/uL (130-400); RED CELL DISTRIBUTION WIDTH 18.6 % (9.6-15.2)
[2017-05-19 05:49] LABS: ALANINE AMINOTRANSFERASE 25 U/L (12-78); ALBUMIN 3.4 g/dL (3.4-5.0); ANION GAP 8 mmol/L (5-15); CALCIUM 9.2 mg/dL (8.5-10.1); CHLORIDE 101 mmol/L (98-107); CREATININE 1.05 mg/dL (0.55-1.02)
[2017-05-19 05:51] LABS: ALKALINE PHOSPHATASE 65 U/L (45-117); BILIRUBIN,TOTAL 1.8 mg/dL (0.2-1.0); TOTAL PROTEIN 7.4 g/dL (6.4-8.2)
[2017-05-19] MEDS: LEVOTHYROXINE 100 MCG TABLET PO SCH (06:14)
[2017-05-19] MEDS: INSULIN LISPRO 100 UNITS/ML, PEN SQ-INSULIN SCH ×4 (08:19→21:04)
[2017-05-19] MEDS: ALBUTEROL/IPRATROPIUM 2.5MG/0.5MG, 3 ML NPPB SCH ×2 (08:24→20:37)
[2017-05-19] MEDS: CHOLECALCIFEROL 1,000 UNIT TABLET PO SCH (08:36)
[2017-05-19] MEDS: AMLODIPINE 5 MG TABLET PO SCH ×2 (08:36→20:57)
[2017-05-19] MEDS: FUROSEMIDE 80 MG TABLET PO SCH (08:36)
[2017-05-19] MEDS: METOPROLOL SUCCINATE 100 MG TAB.ER.24H PO SCH ×2 (08:36→20:57)
[2017-05-19] MEDS: POTASSIUM CHLORIDE 20 MEQ TAB.ER.PRT PO SCH (08:36)
[2017-05-19] MEDS: INSULIN GLARGINE 100 UNITS/ML, PEN SQ-INSULIN SCH ×2 (08:37→21:18)
[2017-05-19] MEDS: SPIRONOLACTONE 100 MG TABLET PO SCH (08:37)
[2017-05-19] MEDS: APIXABAN 5 MG TABLET PO SCH ×2 (08:37→20:58)
[2017-05-19] MEDS: ACETAMINOPHEN 325 MG TABLET PO PRN ×2 (10:20→17:07)
[2017-05-19 10:47] VITALS: BP 122/66
[2017-05-19 15:07] VITALS: BP 120/71
[2017-05-19 19:27] VITALS: BP 127/70
[2017-05-19] MEDS: SIMVASTATIN 20 MG TABLET PO SCH (20:58)
[2017-05-20 01:20] VITALS: BP 113/61
[2017-05-20 05:12] LABS: ABSOLUTE RETICS # 0.227 x10^6/uL (0.5-2.5); RETICULOCYTE COUNT % 8.47 % (0.5-1.5)
[2017-05-20 05:17] LABS: ALBUMIN 3.5 g/dL (3.4-5.0); ANION GAP 7 mmol/L (5-15); CALCIUM 9.3 mg/dL (8.5-10.1); CHLORIDE 102 mmol/L (98-107); MEAN CORPUSCULAR HEMOGLOBIN 31.2 pg (27.0-34.8); MEAN CORPUSCULAR VOLUME 94.7 fL (80-100); MEAN PLATELET VOLUME 7.5 fL (7.4-10.4); PLATELET COUNT 393 x10^3/uL (130-400); RED BLOOD COUNT 2.68 x10^6/uL (3.82-5.3); RED CELL DISTRIBUTION WIDTH 18.4 % (9.6-15.2)
[2017-05-20 05:26] LABS: ALANINE AMINOTRANSFERASE 27 U/L (12-78); ALKALINE PHOSPHATASE 67 U/L (45-117); BILIRUBIN, DIRECT 0.4 mg/dL (0.1-0.2); BILIRUBIN,INDIRECT 1.1 mg/dL (0.0-2.0); BILIRUBIN,TOTAL 1.5 mg/dL (0.2-1.0); CREATININE 1.06 mg/dL (0.55-1.02); TOTAL PROTEIN 7.2 g/dL (6.4-8.2)
[2017-05-20 06:13] LABS: BASOPHILS # (AUTO) 0.02 x10^3/uL (0-0.1); BASOPHILS % (AUTO) 0 % (0-1); EOSINOPHILS # (AUTO) 0.01 x10^3/uL (0-0.4); EOSINOPHILS % (AUTO) 0 % (1-7); LYMPHOCYTES # (AUTO) 1.34 x10^3/uL (1-3.4); LYMPHOCYTES % (AUTO) 15 % (22-44); MD SCAN; MONOCYTES # (AUTO) 0.82 x10^3/uL (0.2-0.8); MONOCYTES % (AUTO) 9 % (2-9); NEUTROPHILS # (AUTO) 6.97 x10^3/uL (1.8-6.8); NEUTROPHILS % (AUTO) 76 % (42-75)
[2017-05-20] MEDS: LEVOTHYROXINE 100 MCG TABLET PO SCH (06:32)
[2017-05-20] MEDS: ALBUTEROL/IPRATROPIUM 2.5MG/0.5MG, 3 ML NPPB SCH ×2 (06:50→19:08)
[2017-05-20] MEDS: INSULIN LISPRO 100 UNITS/ML, PEN SQ-INSULIN SCH ×4 (07:00→20:32)
[2017-05-20 07:34] VITALS: BP 122/74
[2017-05-20] MEDS: AMLODIPINE 5 MG TABLET PO SCH ×2 (08:33→20:31)
[2017-05-20] MEDS: FOLIC ACID 1 MG TABLET PO SCH (08:33)
[2017-05-20] MEDS: SPIRONOLACTONE 100 MG TABLET PO SCH (08:33)
[2017-05-20] MEDS: POTASSIUM CHLORIDE 20 MEQ TAB.ER.PRT PO SCH (08:33)
[2017-05-20] MEDS: FUROSEMIDE 80 MG TABLET PO SCH (08:33)
[2017-05-20] MEDS: CHOLECALCIFEROL 1,000 UNIT TABLET PO SCH (08:33)
[2017-05-20] MEDS: METOPROLOL SUCCINATE 100 MG TAB.ER.24H PO SCH ×2 (08:33→20:31)
[2017-05-20] MEDS: APIXABAN 5 MG TABLET PO SCH ×2 (08:33→20:30)
[2017-05-20] MEDS: DOCUSATE 100 MG CAPSULE PO PRN (08:34)
[2017-05-20] MEDS: INSULIN GLARGINE 100 UNITS/ML, PEN SQ-INSULIN SCH ×2 (08:39→20:33)
[2017-05-20] MEDS: ACETAMINOPHEN 325 MG TABLET PO PRN ×2 (08:46→23:00)
[2017-05-20 13:38] VITALS: BP 118/69
[2017-05-20 20:00] VITALS: BP 115/73
[2017-05-20] MEDS: SIMVASTATIN 20 MG TABLET PO SCH (20:31)
[2017-05-21 04:25] VITALS: BP 116/71
[2017-05-21 04:29] LABS: BASOPHILS # (AUTO) 0.05 x10^3/uL (0-0.1); BASOPHILS % (AUTO) 1 % (0-1); EOSINOPHILS % (AUTO) 0 % (1-7); LYMPHOCYTES % (AUTO) 17 % (22-44); MD NO; MEAN CORPUSCULAR HEMOGLOBIN 30.4 pg (27.0-34.8); MEAN CORPUSCULAR HGB CONC 32.4 g/dL (32.4-35.8); MEAN CORPUSCULAR VOLUME 93.8 fL (80-100); MEAN PLATELET VOLUME 7.3 fL (7.4-10.4); MONOCYTES # (AUTO) 0.75 x10^3/uL (0.2-0.8); MONOCYTES % (AUTO) 7 % (2-9); NEUTROPHILS # (AUTO) 7.77 x10^3/uL (1.8-6.8); NEUTROPHILS % (AUTO) 76 % (42-75); PLATELET COUNT 385 x10^3/uL (130-400); RED BLOOD COUNT 2.76 x10^6/uL (3.82-5.3); RED CELL DISTRIBUTION WIDTH 19.1 % (9.6-15.2)
[2017-05-21 04:43] LABS: CHLORIDE 101 mmol/L (98-107)
[2017-05-21 04:47] LABS: ANION GAP 8 mmol/L (5-15); CALCIUM 9.2 mg/dL (8.5-10.1); CREATININE 1.04 mg/dL (0.55-1.02)
[2017-05-21] MEDS: LEVOTHYROXINE 100 MCG TABLET PO SCH (05:30)
[2017-05-21] MEDS: INSULIN LISPRO 100 UNITS/ML, PEN SQ-INSULIN SCH ×3 (07:00→16:27)
[2017-05-21 07:59] VITALS: BP 113/74
[2017-05-21] MEDS: ALBUTEROL/IPRATROPIUM 2.5MG/0.5MG, 3 ML NPPB SCH (09:00)
[2017-05-21] MEDS: POTASSIUM CHLORIDE 20 MEQ TAB.ER.PRT PO SCH (09:36)
[2017-05-21] MEDS: FOLIC ACID 1 MG TABLET PO SCH (09:36)
[2017-05-21] MEDS: AMLODIPINE 5 MG TABLET PO SCH (09:36)
[2017-05-21] MEDS: APIXABAN 5 MG TABLET PO SCH (09:36)
[2017-05-21] MEDS: CHOLECALCIFEROL 1,000 UNIT TABLET PO SCH (09:37)
[2017-05-21] MEDS: METOPROLOL SUCCINATE 100 MG TAB.ER.24H PO SCH (09:37)
[2017-05-21] MEDS: SPIRONOLACTONE 100 MG TABLET PO SCH (09:37)
[2017-05-21] MEDS: FUROSEMIDE 80 MG TABLET PO SCH (09:37)
[2017-05-21] MEDS: INSULIN GLARGINE 100 UNITS/ML, PEN SQ-INSULIN SCH (09:40)
[2017-05-21] MEDS ORDERED: FOLI-17 PO (10:21)
[2017-05-21] MEDS ORDERED: PANT20TA3 PO (10:21)
[2017-05-21] MEDS ORDERED: PRED20TA PO ×2 (10:21→10:41)
[2017-05-21] MEDS ORDERED: PANTOPRAZOLE 20MG TABLET PO ONE (10:30)
[2017-05-21] MEDS: ACETAMINOPHEN 325 MG TABLET PO PRN (10:43)
[2017-05-21 13:27] VITALS: BP 114/70
== END 2017-05-21 16:30 | disposition home or self-care (01) | DRG 809 ==
LOC: ED 15:19 → EDIP 15:20 → INTOOBSV 15:20 → OBSVTOIN 15:20 → ED 15:33 → 3NW 17:50
PROVIDERS: ADMIT Internal Medicine Pulmonary Disease; ATTEND Internal Medicine Pulmonary Disease
DX: D59.1 Other autoimmune hemolytic anemias (principal); I13.0 Hypertensive heart and chronic kidney disease with heart failure and stage 1 through stage 4 chronic kidney disease, or unspecified chronic kidney disease; J96.10 Chronic respiratory failure, unspecified whether with hypoxia or hypercapnia; E11.22 Type 2 diabetes mellitus with diabetic chronic kidney disease; M32.9 Systemic lupus erythematosus, unspecified; N17.9 Acute kidney failure, unspecified; N18.3 Chronic kidney disease, stage 3 (moderate); E66.01 Morbid (severe) obesity due to excess calories; E87.1 Hypo-osmolality and hyponatremia; I50.32 Chronic diastolic (congestive) heart failure; K50.90 Crohn's disease, unspecified, without complications; J44.1 Chronic obstructive pulmonary disease with (acute) exacerbation; Z68.43 Body mass index [BMI] 50.0-59.9, adult; E03.9 Hypothyroidism, unspecified; E78.5 Hyperlipidemia, unspecified; G47.33 Obstructive sleep apnea (adult) (pediatric); I87.8 Other specified disorders of veins; T38.0X5A Adverse effect of glucocorticoids and synthetic analogues, initial encounter; Y92.89 Other specified places as the place of occurrence of the external cause; Z79.4 Long term (current) use of insulin; Z82.49 Family history of ischemic heart disease and other diseases of the circulatory system; Z83.3 Family history of diabetes mellitus; Z86.711 Personal history of pulmonary embolism; Z87.891 Personal history of nicotine dependence; Z90.710 Acquired absence of both cervix and uterus; Z90.49 Acquired absence of other specified parts of digestive tract; Z88.2 Allergy status to sulfonamides; Z88.1 Allergy status to other antibiotic agents; Z91.041 Radiographic dye allergy status
CPT/HCPCS: 36415; 71045; 76705; 80048; 80053; 80076; 82247; 82248; 82607; 82668; 82947; 82962; 83010; 83036; 83615; 83735; 84443; 84484; 85014; 85018; 85025; 85045; 86850; 86870; 86880; 86900; 86902; 86922; 86923; 93005; 94640; 99285; J7620; Q0162; J1815; J7512; J7517

== ENCOUNTER 2017-08-17 11:35 | Emergency (ER) | payer OTHER ==
[~2017-08-17] VITALS: Ht 165.1 cm; Wt 145.9 kg
[~2017-08-17 11:35] MED LIST changes: +PANT20TA3 PO
[2017-08-17 12:45] LABS: BASOPHILS # (AUTO) 0.02 x10^3/uL (0-0.1); BASOPHILS % (AUTO) 0 % (0-1); EOSINOPHILS # (AUTO) 0.14 x10^3/uL (0-0.4); EOSINOPHILS % (AUTO) 2 % (1-7); LYMPHOCYTES # (AUTO) 1.15 x10^3/uL (1-3.4); LYMPHOCYTES % (AUTO) 17 % (22-44); MD NO; MEAN CORPUSCULAR HEMOGLOBIN 28.6 pg (27.0-34.8); MEAN CORPUSCULAR HGB CONC 33.1 g/dL (32.4-35.8); MEAN CORPUSCULAR VOLUME 86.4 fL (80-100); MEAN PLATELET VOLUME 8.9 fL (7.4-10.4); MONOCYTES # (AUTO) 0.53 x10^3/uL (0.2-0.8); MONOCYTES % (AUTO) 8 % (2-9); NEUTROPHILS % (AUTO) 73 % (42-75); PLATELET COUNT 258 x10^3/uL (130-400); RED BLOOD COUNT 4.07 x10^6/uL (3.82-5.3); RED CELL DISTRIBUTION WIDTH 16.2 % (9.6-15.2)
[2017-08-17 12:47] LABS: INTERNATIONAL NORMALIZED RATIO 0.95 (0.93-1.1); PROTHROMBIN TIME 9.9 Seconds (9.6-11.5)
[2017-08-17 12:50] LABS: ALANINE AMINOTRANSFERASE 28 U/L (12-78); ALBUMIN 3.6 g/dL (3.4-5.0); ANION GAP 8 mmol/L (5-15); CALCIUM 9.1 mg/dL (8.5-10.1); CHLORIDE 101 mmol/L (98-107); CREATININE 1.37 mg/dL (0.55-1.02)
[2017-08-17 12:53] LABS: ALKALINE PHOSPHATASE 72 U/L (45-117); BILIRUBIN,TOTAL 0.8 mg/dL (0.2-1.0); TOTAL PROTEIN 7.6 g/dL (6.4-8.2)
[2017-08-17] MEDS ORDERED: ALBUTEROL SULFATE 2.5 MG/3 ML ONE (13:13)
[2017-08-17] MEDS ORDERED: INSULIN REGULAR 100 UNITS/ML, 3ML VIAL SQ-INSULIN SCH (13:30)
[2017-08-17] MEDS ORDERED: ALBUTEROL SULFATE 2.5 MG/3 ML NPPB ONE (13:30)
[2017-08-17] MEDS ORDERED: INSULIN REGULAR 100 UNITS/ML, 3ML VIAL ONE ×2 (13:47→13:51)
[2017-08-17 13:58] VITALS: BP 134/78
== END 2017-08-17 14:00 | disposition home or self-care (01) ==
LOC: ED 13:27
DX: R60.9 Edema, unspecified (principal); I10 Essential (primary) hypertension; J44.9 Chronic obstructive pulmonary disease, unspecified; I11.0 Hypertensive heart disease with heart failure; I50.9 Heart failure, unspecified; E03.9 Hypothyroidism, unspecified; E11.9 Type 2 diabetes mellitus without complications; E78.00 Pure hypercholesterolemia, unspecified
CPT/HCPCS: 71046; 80053; 82962; 85025; 85610; 85730; 93971; 94640; 96372; 99285; J7613

== ENCOUNTER 2017-09-08 08:04 | Emergency (ER) | payer OTHER ==
[~2017-09-08] VITALS: Ht 165.1 cm; Wt 142.0 kg
[~2017-09-08 08:04] MED LIST changes: -SPIR100T2 PO; +SPIR100T4 PO; -SPIR50TA2 PO; +SPIR50TA4 PO; +TRAZ-136 PO; -TRAZ50TA18 PO
[2017-09-08 08:13] VITALS: BP 113/75
[2017-09-08] MEDS ORDERED: ACETAMINOPHEN 500 MG TABLET ONE (09:00)
[2017-09-08] MEDS ORDERED: ACETAMINOPHEN 500 MG TABLET PO ONE (09:00)
[2017-09-08 09:18] LABS: BASOPHILS # (AUTO) 0.07 x10^3/uL (0-0.1); BASOPHILS % (AUTO) 0 % (0-1); EOSINOPHILS # (AUTO) 0.08 x10^3/uL (0-0.4); EOSINOPHILS % (AUTO) 1 % (1-7); LYMPHOCYTES # (AUTO) 0.66 x10^3/uL (1-3.4); LYMPHOCYTES % (AUTO) 4 % (22-44); MD NO; MEAN CORPUSCULAR HEMOGLOBIN 28.2 pg (27.0-34.8); MEAN CORPUSCULAR HGB CONC 32.8 g/dL (32.4-35.8); MEAN CORPUSCULAR VOLUME 86.1 fL (80-100); MEAN PLATELET VOLUME 8.4 fL (7.4-10.4); MONOCYTES # (AUTO) 0.53 x10^3/uL (0.2-0.8); MONOCYTES % (AUTO) 3 % (2-9); NEUTROPHILS # (AUTO) 15.19 x10^3/uL (1.8-6.8); NEUTROPHILS % (AUTO) 92 % (42-75); PLATELET COUNT 272 x10^3/uL (130-400); RED BLOOD COUNT 3.84 x10^6/uL (3.82-5.3); RED CELL DISTRIBUTION WIDTH 15.4 % (9.6-15.2)
[2017-09-08 09:45] LABS: ALANINE AMINOTRANSFERASE 26 U/L (12-78); ALBUMIN 3.7 g/dL (3.4-5.0); ANION GAP 9 mmol/L (5-15); CALCIUM 9.4 mg/dL (8.5-10.1); CHLORIDE 102 mmol/L (98-107); CREATININE 1.19 mg/dL (0.55-1.02)
[2017-09-08 09:49] LABS: ALKALINE PHOSPHATASE 75 U/L (45-117); TOTAL PROTEIN 7.9 g/dL (6.4-8.2)
== END 2017-09-08 10:34 | disposition home or self-care (01) ==
LOC: ED 09:04
DX: L03.116 Cellulitis of left lower limb (principal); D72.829 Elevated white blood cell count, unspecified; I10 Essential (primary) hypertension; M19.90 Unspecified osteoarthritis, unspecified site; E07.9 Disorder of thyroid, unspecified; J44.9 Chronic obstructive pulmonary disease, unspecified; M54.9 Dorsalgia, unspecified; G89.29 Other chronic pain; E11.9 Type 2 diabetes mellitus without complications; Z86.718 Personal history of other venous thrombosis and embolism; E66.01 Morbid (severe) obesity due to excess calories; Z68.43 Body mass index [BMI] 50.0-59.9, adult
CPT/HCPCS: 36415; 71045; 80053; 83880; 85025; 93005; 99285

== ENCOUNTER 2017-09-25 18:18 | Emergency (ER) | payer SELFPAY ==
[~2017-09-25] VITALS: Ht 165.1 cm; Wt 143.0 kg
[2017-09-25] MEDS ORDERED: HYDR200T72 PO (18:49)
[2017-09-25] MEDS ORDERED: OXYcodone/APAP 10/325MG TABLET PO ONE (19:00)
[2017-09-25] MEDS ORDERED: OXYcodone/APAP 10/325MG TABLET ONE (19:04)
[2017-09-25 19:05] LABS: ALANINE AMINOTRANSFERASE 27 U/L (12-78); ALBUMIN 3.8 g/dL (3.4-5.0); ANION GAP 7 mmol/L (5-15); CALCIUM 8.8 mg/dL (8.5-10.1); CHLORIDE 106 mmol/L (98-107); CREATININE 1.11 mg/dL (0.55-1.02)
[2017-09-25 19:10] LABS: ALKALINE PHOSPHATASE 73 U/L (45-117); BILIRUBIN,TOTAL 0.7 mg/dL (0.2-1.0); TOTAL PROTEIN 8.3 g/dL (6.4-8.2)
[2017-09-25 19:28] LABS: MEAN CORPUSCULAR HEMOGLOBIN 28.6 pg (27.0-34.8); MEAN CORPUSCULAR HGB CONC 33.2 g/dL (32.4-35.8); MEAN CORPUSCULAR VOLUME 86.2 fL (80-100); MEAN PLATELET VOLUME 8.5 fL (7.4-10.4); PLATELET COUNT 283 x10^3/uL (130-400); RED BLOOD COUNT 3.74 x10^6/uL (3.82-5.3)
[2017-09-25 19:29] LABS: MD YES
[2017-09-25 19:31] LABS: BASOS#(MANUAL) 0.07 x10^3/uL (0-0.1); BASOS% (MANUAL) 1 % (0-1); EOS#(MANUAL) 0.07 x10^3/uL (0.0-0.4); EOS% (MANUAL) 1 % (1-7); LYMPH#(MANUAL) 1.22 x10^3/uL (1-3.4); LYMPHS% (MANUAL) 17 % (22-44); MONOS#(MANUAL) 0.29 x10^3/uL (0.3-2.7); MONOS% (MANUAL) 4 % (2-9); SEG#(MANUAL) 5.54 x10^3/uL (1.8-6.8); SEGS% (MANUAL) 77 % (42-75)
[2017-09-25 19:32] LABS: <PLATELET ESTIMATE> ADEQUATE; <PLT MORPHOLOGY> NORMAL PLT MORPH; <RBC MORPHOLOGY> NORMAL
[2017-09-25 19:50] VITALS: BP 117/60
== END 2017-09-25 20:04 | disposition home or self-care (01) ==
LOC: ED 20:00
DX: M79.662 Pain in left lower leg (principal); I50.9 Heart failure, unspecified; J44.9 Chronic obstructive pulmonary disease, unspecified; I11.0 Hypertensive heart disease with heart failure; E66.01 Morbid (severe) obesity due to excess calories; Z68.30 Body mass index [BMI] 30.0-30.9, adult; E11.65 Type 2 diabetes mellitus with hyperglycemia; F17.200 Nicotine dependence, unspecified, uncomplicated
CPT/HCPCS: 36415; 71045; 80053; 83880; 85025; 93005; 99285

== ENCOUNTER 2017-10-09 17:15 | Emergency (ER) | payer OTHER ==
[~2017-10-09] VITALS: Ht 165.1 cm; Wt 140.4 kg
[~2017-10-09 17:15] MED LIST changes: +HYDR200T72 PO
[2017-10-09] MEDS ORDERED: LIDOCAINE 1%-EPI 1:100K, 30ML ONE (17:32)
[2017-10-09] MEDS ORDERED: ONDANSETRON ODT 8 MG ONE (17:47)
[2017-10-09] MEDS ORDERED: HYDROmorphone 2 MG/ML, 1ML ONE (17:47)
[2017-10-09] MEDS ORDERED: HYDROmorphone 2 MG/ML, 1ML IM ONE (18:00)
[2017-10-09] MEDS ORDERED: ONDANSETRON ODT 8 MG PO ONE (18:00)
[2017-10-09 18:21] VITALS: BP 130/60
== END 2017-10-09 18:23 | disposition home or self-care (01) ==
LOC: ED 17:49
DX: L02.214 Cutaneous abscess of groin (principal); R51 Headache; R11.0 Nausea; E11.9 Type 2 diabetes mellitus without complications; F41.1 Generalized anxiety disorder; I11.0 Hypertensive heart disease with heart failure; I50.9 Heart failure, unspecified; J44.9 Chronic obstructive pulmonary disease, unspecified; Z86.718 Personal history of other venous thrombosis and embolism; Z90.49 Acquired absence of other specified parts of digestive tract; Z90.710 Acquired absence of both cervix and uterus; Z88.2 Allergy status to sulfonamides; Z86.39 Personal history of other endocrine, nutritional and metabolic disease
CPT/HCPCS: 10060; 96372; 99283; J1170; Q0162

== ENCOUNTER 2017-10-12 10:06 | Emergency (ER) | payer OTHER ==
[~2017-10-12] VITALS: Ht 165.1 cm; Wt 139.9 kg
[2017-10-12] MEDS ORDERED: ALBUTEROL/IPRATROPIUM 2.5MG/0.5MG, 3 ML NPPB ONE (11:00)
[2017-10-12] MEDS ORDERED: ALBUTEROL/IPRATROPIUM 2.5MG/0.5MG, 3 ML ONE (11:04)
[2017-10-12 11:28] VITALS: BP 116/57
== END 2017-10-12 12:16 | disposition home or self-care (01) ==
LOC: ED 11:19
DX: R06.00 Dyspnea, unspecified (principal); I11.0 Hypertensive heart disease with heart failure; I50.9 Heart failure, unspecified; E66.01 Morbid (severe) obesity due to excess calories; Z68.23 Body mass index [BMI] 23.0-23.9, adult; E11.65 Type 2 diabetes mellitus with hyperglycemia; J44.9 Chronic obstructive pulmonary disease, unspecified; M19.90 Unspecified osteoarthritis, unspecified site; Z90.49 Acquired absence of other specified parts of digestive tract; Z90.710 Acquired absence of both cervix and uterus
CPT/HCPCS: 71045; 93005; 94640; 99284; J7620

== ENCOUNTER 2018-05-28 10:16 | Emergency (ER) | payer OTHER ==
[~2018-05-28] VITALS: Ht 165.1 cm; Wt 140.5 kg
[~2018-05-28 10:16] MED LIST changes: +AMLO-150 PO; -AMLO5TAB2 PO; -CHOL20002 PO; +CHOL200052 PO; +DEXT-230 PO; -DEXT4TAB PO; +HYDR-3653 PO; -HYDR-882 PO; -TRAZ-136 PO; +TRAZ50TA66 PO
--- NOTE | 2018-05-28 11:02 | NUR ---
"MY DOCTOR SENT ME IN HERE BECAUSE MY HGB IS LOW AND IM HAVING SOB" REPORTS HGB OF 7.8 D/T HEMOLYTIC ANEMIA. RECENTLY STARTED ON MYCLOPHENALATE MILDLY PALE. REPORTS FATIGUE PCP RADHA AT [facility]. HX OF DVT/PE. PT REPORTS GLUCOSE IN THE 400S FOR PAST FEW DAYS, THIS MORNING WAS 160. IN TRIAGE FSBG 220
--- NOTE | 2018-05-28 11:20 | NUR ---
PIV DEFERRED AT THIS TIME PER PATIENT REQUEST. HGB NOT CRITICALLY LOW. WILL CONTINUE TO CLOSELY MONITOR PIV SUPPLIES AT BEDSIDE
[2018-05-28] MEDS ORDERED: LEVO150T5 PO (11:21)
[2018-05-28] MEDS ORDERED: TRAZ-137 PO (11:23)
[2018-05-28] MEDS ORDERED: LORA10TA62 PO (11:23)
[2018-05-28 12:32] LABS: ALBUMIN 3.6 g/dL (3.4-5.0); ANION GAP 3 mmol/L (5-15); CALCIUM 8.9 mg/dL (8.5-10.1); CHLORIDE 106 mmol/L (98-107)
[2018-05-28 12:38] LABS: BILIRUBIN, DIRECT 0.2 mg/dL (0.1-0.2); BILIRUBIN,INDIRECT 0.4 mg/dL (0.0-2.0); BILIRUBIN,TOTAL 0.6 mg/dL (0.2-1.0); CREATININE 0.99 mg/dL (0.55-1.02); TROPONIN I < 0.015 ng/mL (0.000-0.045)
[2018-05-28 12:41] LABS: BASOPHILS # (AUTO) 0.02 x10^3/uL (0-0.1); BASOPHILS % (AUTO) 0 % (0-1); EOSINOPHILS # (AUTO) 0.18 x10^3/uL (0-0.4); EOSINOPHILS % (AUTO) 3 % (1-7); LYMPHOCYTES # (AUTO) 0.74 x10^3/uL (1-3.4); LYMPHOCYTES % (AUTO) 14 % (22-44); MD NO; MEAN CORPUSCULAR HEMOGLOBIN 27.6 pg (27.0-34.8); MEAN CORPUSCULAR HGB CONC 33.4 g/dL (32.4-35.8); MEAN CORPUSCULAR VOLUME 82.5 fL (80-100); MEAN PLATELET VOLUME 8.5 fL (7.4-10.4); MONOCYTES # (AUTO) 0.48 x10^3/uL (0.2-0.8); MONOCYTES % (AUTO) 9 % (2-9); NEUTROPHILS # (AUTO) 3.85 x10^3/uL (1.8-6.8); NEUTROPHILS % (AUTO) 73 % (42-75); PLATELET COUNT 256 x10^3/uL (130-400); RED BLOOD COUNT 3.11 x10^6/uL (3.82-5.3); RED CELL DISTRIBUTION WIDTH 14.9 % (9.6-15.2)
--- NOTE | 2018-05-28 12:48 | NUR ---
PATIENT COMFORTABLY RESTING ON GURNEY ON LUBE ATTENDANT VSS, DENIES DISCOMFORT OTHER THAN EXISTING FATIGUE CALL OLIVA IN HAND. SIDE RAILS UP UPDATED ON POC WAITING ON TESTING RESULTS (ADDED ON LATER) AT BEDSIDE
[2018-05-28 12:49] LABS: ABSOLUTE RETICS # 0.082 x10^6/uL (0.5-2.5); RED BLOOD COUNT 3.14 x10^6/uL (3.82-5.3); RETICULOCYTE COUNT % 2.61 % (0.5-1.5)
--- NOTE | 2018-05-28 13:10 | NUR ---
PATIENT COMFORTABLY RESTING ON GURNEY ON CIGAR HEAD PEGGER VSS, DENIES DISCOMFORT OTHER THAN EXISTING FATIGUE CALL OLIVA IN HAND. SIDE RAILS UP pROVIDER ASKED TO UPDATE PATIENT ON PLAN AT BEDSIDE
--- NOTE | 2018-05-28 14:20 | NUR ---
DISCHARGED VIA WHEELCHAIR IN THE COMPANY OF SPOUSE. PATIENT EDUCATED ON FALL PRECAUTIONS/IMPORTANCE OF F/U WITH ADJUNCT LATIN PROFESSOR ORDERED BY ED PROVIDER PATIENT AGREEABLE
[2018-05-28 14:21] VITALS: BP 110/56
== END 2018-05-28 14:43 | disposition home or self-care (01) ==
LOC: ED 13:30
DX: D64.9 Anemia, unspecified (principal); I11.0 Hypertensive heart disease with heart failure; I50.9 Heart failure, unspecified; E11.65 Type 2 diabetes mellitus with hyperglycemia; F41.1 Generalized anxiety disorder; G89.29 Other chronic pain; E66.01 Morbid (severe) obesity due to excess calories; J43.9 Emphysema, unspecified; Z86.718 Personal history of other venous thrombosis and embolism; Z90.710 Acquired absence of both cervix and uterus; Z90.49 Acquired absence of other specified parts of digestive tract; Z68.43 Body mass index [BMI] 50.0-59.9, adult
CPT/HCPCS: 36415; 80048; 82040; 82247; 82248; 82962; 83615; 84484; 85018; 85025; 85045; 93005; 99284

== ENCOUNTER → 2018-06-03 | Outpatient (CLI) | payer OTHER ==
[~2018-06-03] MED LIST changes: +LEVO150T5 PO; +LORA10TA62 PO; +TRAZ-137 PO
== END | disposition home or self-care (01) ==
LOC: WOUND 13:48
PROVIDERS: ATTEND Internal Medicine
DX: I87.312 Chronic venous hypertension (idiopathic) with ulcer of left lower extremity (principal); E11.622 Type 2 diabetes mellitus with other skin ulcer; L97.222 Non-pressure chronic ulcer of left calf with fat layer exposed; R21 Rash and other nonspecific skin eruption; E66.9 Obesity, unspecified; G47.33 Obstructive sleep apnea (adult) (pediatric); I10 Essential (primary) hypertension; Z90.710 Acquired absence of both cervix and uterus; Z87.891 Personal history of nicotine dependence; Z68.43 Body mass index [BMI] 50.0-59.9, adult
CPT/HCPCS: 99215

== ENCOUNTER → 2018-06-03 | Outpatient (CLI) | payer OTHER | END | disposition home or self-care (01) | LOC: CFH 15:02 | PROVIDERS: ATTEND Internal Medicine | DX: R60.0 Localized edema (principal) ==

== ENCOUNTER → 2018-06-17 | Outpatient (CLI) | payer OTHER | END | disposition home or self-care (01) | LOC: WOUND 09:20 | PROVIDERS: ATTEND Internal Medicine | DX: E11.622 Type 2 diabetes mellitus with other skin ulcer (principal); L97.811 Non-pressure chronic ulcer of other part of right lower leg limited to breakdown of skin; S91.301D Unspecified open wound, right foot, subsequent encounter; R21 Rash and other nonspecific skin eruption; R60.0 Localized edema; I11.0 Hypertensive heart disease with heart failure; I50.9 Heart failure, unspecified; G89.29 Other chronic pain; J43.9 Emphysema, unspecified; G47.33 Obstructive sleep apnea (adult) (pediatric); I25.10 Atherosclerotic heart disease of native coronary artery without angina pectoris; F41.1 Generalized anxiety disorder; Z87.891 Personal history of nicotine dependence; E66.01 Morbid (severe) obesity due to excess calories; Z68.43 Body mass index [BMI] 50.0-59.9, adult; Z79.4 Long term (current) use of insulin; Z86.711 Personal history of pulmonary embolism; Z90.710 Acquired absence of both cervix and uterus; Z86.718 Personal history of other venous thrombosis and embolism; X58.XXXD Exposure to other specified factors, subsequent encounter | CPT/HCPCS: 99214 ==

== ENCOUNTER → 2018-06-26 | Outpatient (CLI) | payer OTHER | END | disposition home or self-care (01) | LOC: CVU 12:21 | PROVIDERS: ATTEND Internal Medicine | DX: I70.203 Unspecified atherosclerosis of native arteries of extremities, bilateral legs (principal); L97.811 Non-pressure chronic ulcer of other part of right lower leg limited to breakdown of skin; E11.9 Type 2 diabetes mellitus without complications; J44.9 Chronic obstructive pulmonary disease, unspecified; E66.01 Morbid (severe) obesity due to excess calories; Z87.891 Personal history of nicotine dependence | CPT/HCPCS: 93922; 93925; 93970 ==

== ENCOUNTER 2018-07-23 06:38 | Emergency (ER) | payer OTHER ==
[~2018-07-23] VITALS: Ht 165.1 cm; Wt 141.0 kg
[2018-07-23] MEDS ORDERED: SODIUM CHLORIDE 0.9% 1,000ML IVBOLUS ONE ×2 (07:00→07:30)
[2018-07-23] MEDS ORDERED: FAMOTIDINE 20 MG/2 ML IVP ONE (07:00)
[2018-07-23] MEDS ORDERED: ONDANSETRON 2MG/ML, 2ML IVPush ONE (07:00)
--- NOTE | 2018-07-23 07:18 | NUR ---
FIRST CONTACT WITH PT. PT REPORTS HAVING N/V/D FOR THE PAST 24 HOURS. PT STATES SHE "JUST DOESN'T FEEL GOOD". PT LAST LIQUID STOOL WAS THIS MORNING (07/23) AND THE LAST TIME SHE VOMITED WAS LAST NIGHT (07/22). PT VSS AND SHE HAS NO ACUTE SIGNS OF DISTRESS.
--- NOTE | 2018-07-23 07:20 | NUR ---
PT INSTRUCTED NOT TO EAT OR DRINK ANYTHING AT THIS TIME.
[2018-07-23] MEDS ORDERED: FAMOTIDINE 20 MG/2 ML ONE (07:28)
[2018-07-23] MEDS ORDERED: ONDANSETRON 2MG/ML, 2ML ONE (07:28)
[2018-07-23 07:36] LABS: BASOPHILS # (AUTO) 0.01 x10^3/uL (0-0.1); BASOPHILS % (AUTO) 0 % (0-1); EOSINOPHILS # (AUTO) 0.08 x10^3/uL (0-0.4); EOSINOPHILS % (AUTO) 1 % (1-7); LYMPHOCYTES % (AUTO) 5 % (22-44); MD NO; MEAN CORPUSCULAR HEMOGLOBIN 25.7 pg (27.0-34.8); MEAN CORPUSCULAR HGB CONC 31.6 g/dL (32.4-35.8); MEAN CORPUSCULAR VOLUME 81.2 fL (80-100); MEAN PLATELET VOLUME 7.9 fL (7.4-10.4); MONOCYTES # (AUTO) 0.34 x10^3/uL (0.2-0.8); MONOCYTES % (AUTO) 6 % (2-9); NEUTROPHILS # (AUTO) 5.01 x10^3/uL (1.8-6.8); NEUTROPHILS % (AUTO) 87 % (42-75); PLATELET COUNT 227 x10^3/uL (130-400); RED BLOOD COUNT 3.72 x10^6/uL (3.82-5.3); RED CELL DISTRIBUTION WIDTH 15.5 % (9.6-15.2)
[2018-07-23 07:47] LABS: ALANINE AMINOTRANSFERASE 21 U/L (12-78); ALBUMIN 3.7 g/dL (3.4-5.0); ANION GAP 5 mmol/L (5-15); CALCIUM 9.1 mg/dL (8.5-10.1); CHLORIDE 105 mmol/L (98-107); CREATININE 1.08 mg/dL (0.55-1.02)
[2018-07-23 07:49] LABS: ALKALINE PHOSPHATASE 89 U/L (45-117); BILIRUBIN,TOTAL 0.7 mg/dL (0.2-1.0); TOTAL PROTEIN 7.6 g/dL (6.4-8.2)
[2018-07-23 09:31] VITALS: BP 128/52
--- NOTE | 2018-07-23 09:34 | NUR ---
PT RESTING IN BED, DENIES ANY NEEDS AT THIS TIME. PT STATES, "I FEEL A LITTLE BETTER FROM THAT FLUID". FAMILY AT BEDSIDE. PT IS UNABLE TO PRODUCE STOOL BUT IS AWARE THAT WE NEED A SAMPLE.
--- NOTE | 2018-07-23 10:01 | NUR ---
REPORT TO ASHWINI SANTO
[2018-07-23 10:05] LABS: MICROSCOPIC NOT IND
[2018-07-23 10:08] LABS: CULTURE INDICATED? NO
[2018-07-23] MEDS ORDERED: ACETAMINOPHEN 500 MG TABLET ONE (10:19)
[2018-07-23] MEDS ORDERED: ACETAMINOPHEN 500 MG TABLET PO ONE (10:30)
== END 2018-07-23 10:49 | disposition home or self-care (01) ==
LOC: ED 07:30
DX: A08.4 Viral intestinal infection, unspecified (principal); I10 Essential (primary) hypertension; M19.90 Unspecified osteoarthritis, unspecified site; E11.9 Type 2 diabetes mellitus without complications; G89.29 Other chronic pain; R51 Headache; M54.9 Dorsalgia, unspecified; J44.9 Chronic obstructive pulmonary disease, unspecified; F41.1 Generalized anxiety disorder; Z87.891 Personal history of nicotine dependence; Z86.718 Personal history of other venous thrombosis and embolism; E66.01 Morbid (severe) obesity due to excess calories; Z68.43 Body mass index [BMI] 50.0-59.9, adult
CPT/HCPCS: 36415; 80053; 81003; 83690; 85025; 96361; 96374; 96375; 99283; J2405; J3490; J7030

== ENCOUNTER 2018-09-14 18:15 | Inpatient (IN) | payer OTHER ==
[~2018-09-14] VITALS: Ht 165.1 cm; Wt 139.2 kg
[~2018-09-14 18:15] MED LIST changes: -ALBU6.7H IH; +ALBU6.7H8 IH
[2018-09-14] MEDS ORDERED: SODIUM CHLORIDE FLUSH 10ML SYR IVF ONE (18:30)
--- NOTE | 2018-09-14 18:37 | NUR ---
PT IN CT SCAN
[2018-09-14 19:00] LABS: BASOPHILS # (AUTO) 0.01 x10^3/uL (0-0.1); BASOPHILS % (AUTO) 0 % (0-1); EOSINOPHILS # (AUTO) 0.14 x10^3/uL (0-0.4); EOSINOPHILS % (AUTO) 3 % (1-7); LYMPHOCYTES # (AUTO) 0.96 x10^3/uL (1-3.4); LYMPHOCYTES % (AUTO) 18 % (22-44); MD NO; MEAN CORPUSCULAR HEMOGLOBIN 27.5 pg (27.0-34.8); MEAN CORPUSCULAR HGB CONC 31.9 g/dL (32.4-35.8); MEAN CORPUSCULAR VOLUME 86.2 fL (80-100); MEAN PLATELET VOLUME 8.2 fL (7.4-10.4); MONOCYTES # (AUTO) 0.53 x10^3/uL (0.2-0.8); MONOCYTES % (AUTO) 10 % (2-9); NEUTROPHILS # (AUTO) 3.64 x10^3/uL (1.8-6.8); NEUTROPHILS % (AUTO) 69 % (42-75); PLATELET COUNT 249 x10^3/uL (130-400); RED BLOOD COUNT 3.47 x10^6/uL (3.82-5.3); RED CELL DISTRIBUTION WIDTH 16.2 % (9.6-15.2)
[2018-09-14 19:05] LABS: INTERNATIONAL NORMALIZED RATIO 0.98 (0.93-1.1); PROTHROMBIN TIME 10.3 Seconds (9.6-11.5)
[2018-09-14 19:06] LABS: ALANINE AMINOTRANSFERASE 25 U/L (12-78); ALBUMIN 3.5 g/dL (3.4-5.0); ANION GAP 6 mmol/L (5-15); CALCIUM 9.2 mg/dL (8.5-10.1); CHLORIDE 105 mmol/L (98-107); CREATININE 1.15 mg/dL (0.55-1.02)
[2018-09-14 19:10] LABS: ALKALINE PHOSPHATASE 77 U/L (45-117); BILIRUBIN,TOTAL 0.5 mg/dL (0.2-1.0); TOTAL PROTEIN 7.7 g/dL (6.4-8.2); TROPONIN I < 0.015 ng/mL (0.000-0.045)
--- NOTE | 2018-09-14 19:11 | NUR ---
Assumed care of pt, bedside report recieved. Pt is alert, oriented, sitting up on gurney, speaks in full complete sentnences. Placed on monitor, vss, NSR. Pt reports numbness and tingling to left hand onset yesterday am, progressively worsened today and now c/o numbnes to left lip and heaviness in left arm. Ship Propeller Finisher equal and strong x 4 extremities, PERRLA. at bedside, states pt is more lethargic than normal today, does not appear confused.
[2018-09-14] MEDS ORDERED: PROCHLORPERAZINE 5 MG/ML, 2ML ONE (21:47)
[2018-09-14] MEDS ORDERED: DIPHENHYDRAMINE 50 MG/ML, 1ML ONE (21:48)
[2018-09-14] MEDS ORDERED: PROCHLORPERAZINE 5 MG/ML, 2ML IVPush ONE (22:00)
[2018-09-14] MEDS ORDERED: DIPHENHYDRAMINE 50 MG/ML, 1ML IVPush ONE (22:00)
--- NOTE | 2018-09-14 22:02 | NUR ---
Pt medicated in MRI for sedation, pt reports claustrophobia.
--- NOTE | 2018-09-14 22:07 | NUR ---
Report called to Kusum SANTO pt remains in imaging. Addendum: 09/14/18 at 2207 by KALLI Report called to Jesenia SANTO.
[2018-09-14 22:13] LABS: FREE T4 (FREE THYROXINE) 1.05 ng/dL (0.76-1.46)
[2018-09-14] MEDS ORDERED: GADOBUTROL 10 MMOL/10 ML PFS ONE (23:03)
[2018-09-15 00:11] VITALS: BP 136/76
[2018-09-15] MEDS ORDERED: [UNRECOGNIZED DRUG - OTHER] SQ (00:28)
[2018-09-15] MEDS ORDERED: MYCO360T3 PO (00:28)
[2018-09-15 01:22] VITALS: BP 133/80
[2018-09-15] MEDS ORDERED: DEXTROSE 50%, 50ML SYRINGE IVPush PRN (05:00)
[2018-09-15] MEDS ORDERED: DEXTROSE 4 GM TAB.CHEW PO PRN (05:00)
[2018-09-15] MEDS ORDERED: GLUCAGON 1 MG IM PRN (05:00)
[2018-09-15 06:04] LABS: CHOL/HDL RATIO 3.3; LDL/HDL RATIO 1.4 (0.5-3.0)
[2018-09-15 06:22] LABS: MICROSCOPIC NOT IND
[2018-09-15 07:32] VITALS: BP 134/83
[2018-09-15] MEDS: INSULIN LISPRO 100 UNITS/ML, PEN SQ-INSULIN SCH ×3 (08:18→16:26)
[2018-09-15] MEDS ORDERED: LORazepam 2 MG/ML, 1ML IVPush ONE (08:30)
[2018-09-15] MEDS ORDERED: APIXABAN 5 MG TABLET PO SCH (09:00)
[2018-09-15] MEDS ORDERED: METOPROLOL SUCCINATE 100 MG TAB.ER.24H PO SCH (09:00)
[2018-09-15] MEDS ORDERED: AMLODIPINE 5 MG TABLET PO SCH (09:00)
[2018-09-15] MEDS ORDERED: HYDROXYCHLOROQUINE 200 MG TABLET PO SCH (09:00)
[2018-09-15] MEDS ORDERED: SODIUM CHLORIDE FLUSH 10ML SYR IVF SCH (09:00)
[2018-09-15] MEDS ORDERED: FUROSEMIDE 80 MG TABLET PO SCH (09:00)
[2018-09-15] MEDS ORDERED: SPIRONOLACTONE 100 MG TABLET PO SCH (09:00)
[2018-09-15] MEDS ORDERED: LEVOTHYROXINE 150 MCG TABLET PO SCH (09:00)
[2018-09-15 14:25] VITALS: BP 119/83
[2018-09-15] MEDS ORDERED: SIMVASTATIN 20 MG TABLET PO SCH (21:00)
[2018-09-29] MEDS ORDERED: CARV6.2512 PO (09:57)
[2018-09-29] MEDS ORDERED: AMOX1TAB12 PO (09:57)
[2018-09-29] MEDS ORDERED: SENN-177 PO (09:59)
[2018-09-29] MEDS ORDERED: METF850T PO (10:00)
[2018-09-29] MEDS ORDERED: FERR-51 PO (14:02)
[2018-10-01] MEDS ORDERED: FERR324T5 PO (08:40)
== END 2018-09-15 16:42 | disposition home or self-care (01) | DRG 103 ==
LOC: ED 21:26 → EDIP 21:30 → 4EST 09-15 00:41 → DCLOUNGE 09-15 16:33
PROVIDERS: ADMIT Internal Medicine; ATTEND Internal Medicine
DX: G43.109 Migraine with aura, not intractable, without status migrainosus (principal); D59.1 Other autoimmune hemolytic anemias; I50.32 Chronic diastolic (congestive) heart failure; I13.0 Hypertensive heart and chronic kidney disease with heart failure and stage 1 through stage 4 chronic kidney disease, or unspecified chronic kidney disease; J84.9 Interstitial pulmonary disease, unspecified; Z68.43 Body mass index [BMI] 50.0-59.9, adult; J44.9 Chronic obstructive pulmonary disease, unspecified; E03.9 Hypothyroidism, unspecified; E11.22 Type 2 diabetes mellitus with diabetic chronic kidney disease; E78.5 Hyperlipidemia, unspecified; G47.33 Obstructive sleep apnea (adult) (pediatric); H05.20 Unspecified exophthalmos; N18.3 Chronic kidney disease, stage 3 (moderate); R13.10 Dysphagia, unspecified; Z79.01 Long term (current) use of anticoagulants; Z79.890 Hormone replacement therapy; Z82.49 Family history of ischemic heart disease and other diseases of the circulatory system; Z87.891 Personal history of nicotine dependence; Z90.710 Acquired absence of both cervix and uterus; Z99.81 Dependence on supplemental oxygen; Z88.3 Allergy status to other anti-infective agents; Z88.2 Allergy status to sulfonamides; Z88.8 Allergy status to other drugs, medicaments and biological substances; E11.42 Type 2 diabetes mellitus with diabetic polyneuropathy; J01.00 Acute maxillary sinusitis, unspecified; Z86.711 Personal history of pulmonary embolism; E66.01 Morbid (severe) obesity due to excess calories
CPT/HCPCS: 36415; 70450; 70544; 70553; 71045; 80053; 80061; 81003; 82962; 83880; 84439; 84443; 84484; 85025; 85610; 85730; 93005; 96374; 96375; A9585; 92523-GN; J0780; J1200; J7517

== ENCOUNTER 2018-09-24 22:46 | Inpatient (IN) | payer OTHER ==
[~2018-09-24] VITALS: Ht 165.1 cm; Wt 139.0 kg
[2018-09-29 12:38] VITALS: BP 118/73
== END 2018-09-29 17:25 | disposition home or self-care (01) | DRG 871 ==
LOC: ED 23:25 → EDIP 09-25 03:45 → 5SO 09-25 05:15 → 3NW 09-25 16:23
PROVIDERS: ADMIT Internal Medicine; ATTEND Internal Medicine
PROC: 0T9B70Z Drainage of Bladder with Drainage Device, Via Natural or Artificial Opening (ICD-10-PCS; principal; 2018-09-25)
DX: A40.0 Sepsis due to streptococcus, group A (principal); J96.20 Acute and chronic respiratory failure, unspecified whether with hypoxia or hypercapnia; I26.99 Other pulmonary embolism without acute cor pulmonale; L03.116 Cellulitis of left lower limb; I50.32 Chronic diastolic (congestive) heart failure; D68.69 Other thrombophilia; D59.1 Other autoimmune hemolytic anemias; Z68.43 Body mass index [BMI] 50.0-59.9, adult; E87.1 Hypo-osmolality and hyponatremia; I13.0 Hypertensive heart and chronic kidney disease with heart failure and stage 1 through stage 4 chronic kidney disease, or unspecified chronic kidney disease; J98.11 Atelectasis; D50.9 Iron deficiency anemia, unspecified; E11.21 Type 2 diabetes mellitus with diabetic nephropathy; E11.22 Type 2 diabetes mellitus with diabetic chronic kidney disease; E66.01 Morbid (severe) obesity due to excess calories; E78.5 Hyperlipidemia, unspecified; E83.42 Hypomagnesemia; G44.209 Tension-type headache, unspecified, not intractable; G47.33 Obstructive sleep apnea (adult) (pediatric); J43.9 Emphysema, unspecified; K59.00 Constipation, unspecified; M32.9 Systemic lupus erythematosus, unspecified; N18.3 Chronic kidney disease, stage 3 (moderate); G89.29 Other chronic pain; E89.0 Postprocedural hypothyroidism; E11.40 Type 2 diabetes mellitus with diabetic neuropathy, unspecified; I07.1 Rheumatic tricuspid insufficiency; Z72.0 Tobacco use; Z99.81 Dependence on supplemental oxygen; Z90.49 Acquired absence of other specified parts of digestive tract; Z88.2 Allergy status to sulfonamides; Z88.1 Allergy status to other antibiotic agents; Z90.710 Acquired absence of both cervix and uterus; Z86.718 Personal history of other venous thrombosis and embolism
CPT/HCPCS: 36415; 71045; 74177; 80048; 80053; 81003; 82274; 82962; 83540; 83550; 83605; 83735; 84100; 84145; 84484; 85025; 87040; 87147; 87181; 93005; 93306; 96365; 96375; G0378; J0696; J2405; J2543; J3370; Q9967; J1200; J2060; J2270; J7040; J7517

== ENCOUNTER 2019-03-21 10:45 | Emergency (ER) | payer OTHER ==
[~2019-03-21] VITALS: Ht 162.6 cm; Wt 137.7 kg
[~2019-03-21 10:45] MED LIST changes: +CARV6.2512 PO; -DOXY100T10 PO; +DOXY100T23 PO; +FERR-51 PO; +FERR324T5 PO; -GLIM4TAB2 PO; +GLIM4TAB8 PO; -GUAI400T66 PO; +GUAI400T81 PO; +METF850T PO; +MONT10TA11 PO; -MONT10TA9 PO; +MYCO360T3 PO; +SENN-177 PO; +SIMV20TA19 PO; -SIMV20TA3 PO; -TRAZ-137 PO; +TRAZ-175 PO; +[UNRECOGNIZED DRUG - OTHER] SQ
--- NOTE | 2019-03-21 11:17 | NUR ---
THIS IS A 63 YO F W/ C/O WEAKNESS AND SOBX1 MONTH. HX: PULM HTN, HEMOLYTIC ANEMIA DENIES CP. PT REPORTS DARK TARRY STOOL 5 DAYS AGO. DENIES ABD PAIN. RESP EVEN AND UNLABORED. VS STABLE. PT CONVERSING W/ STAFF IN FULL SENTENCES. IN ROOM. PT RESTING ON GURNEY W/ FAMILY AT BEDSIDE, CALL LIGHT IN REACH. DENIES FURTHER NEEDS AT THIS TIME.
[2019-03-21] MEDS ORDERED: SODIUM CHLORIDE FLUSH 10ML SYR IVF ONE (11:30)
--- NOTE | 2019-03-21 11:40 | NUR ---
PIV STARTED. LABS DRAWN.
[2019-03-21 11:53] LABS: BASOPHILS # (AUTO) 0.01 x10^3/uL (0-0.1); BASOPHILS % (AUTO) 0 % (0-1); EOSINOPHILS % (AUTO) 2 % (1-7); LYMPHOCYTES # (AUTO) 0.75 x10^3/uL (1-3.4); LYMPHOCYTES % (AUTO) 16 % (22-44); MD NO; MEAN CORPUSCULAR HEMOGLOBIN 25.1 pg (27.0-34.8); MEAN CORPUSCULAR HGB CONC 31.6 g/dL (32.4-35.8); MEAN CORPUSCULAR VOLUME 79.6 fL (80-100); MEAN PLATELET VOLUME 8.1 fL (7.4-10.4); MONOCYTES # (AUTO) 0.56 x10^3/uL (0.2-0.8); MONOCYTES % (AUTO) 12 % (2-9); NEUTROPHILS # (AUTO) 3.19 x10^3/uL (1.8-6.8); NEUTROPHILS % (AUTO) 69 % (42-75); PLATELET COUNT 252 x10^3/uL (130-400); RED BLOOD COUNT 3.64 x10^6/uL (3.82-5.3); RED CELL DISTRIBUTION WIDTH 16.2 % (9.6-15.2)
--- NOTE | 2019-03-21 11:57 | NUR ---
PT RESTING ON [employer]works W/ CALL LIGHT IN REACH. AWAITING TEST RESULTS.
[2019-03-21 12:03] LABS: ALBUMIN 3.4 g/dL (3.4-5.0); ANION GAP 8 mmol/L (5-15); CALCIUM 8.3 mg/dL (8.5-10.1); CHLORIDE 109 mmol/L (98-107); CREATININE 1.05 mg/dL (0.55-1.02); INTERNATIONAL NORMALIZED RATIO 0.95 (0.93-1.1); PROTHROMBIN TIME 10.1 Seconds (9.6-11.5)
[2019-03-21] MEDS ORDERED: POTA20PA25 PO (12:06)
[2019-03-21] MEDS ORDERED: MONT10TA11 PO (12:06)
[2019-03-21] MEDS ORDERED: FURO20TA3 PO (12:06)
[2019-03-21] MEDS ORDERED: CYCL1DRO OP (12:06)
[2019-03-21] MEDS ORDERED: INSU100V35 SQ (12:06)
[2019-03-21] MEDS ORDERED: CARV12.52 PO (12:06)
[2019-03-21] MEDS ORDERED: PANT20TA3 PO (12:06)
[2019-03-21 12:08] LABS: TROPONIN I < 0.015 ng/mL (0.000-0.045)
[2019-03-21 12:56] VITALS: BP 126/53
[2019-03-21 13:01] LABS: FREE T4 (FREE THYROXINE) 1.09 ng/dL (0.76-1.46)
--- NOTE | 2019-03-21 13:03 | NUR ---
ALL TESTS RESULTED. PT IS UP FOR RECHECK AT THIS TIME.
--- NOTE | 2019-03-21 14:34 | NUR ---
Patient given discharge instructions and they have confirmed that they understand the instructions. Patient wheeled out in wheelchair.
== END 2019-03-21 14:34 | disposition home or self-care (01) ==
LOC: ED 12:17
DX: R53.1 Weakness (principal); R06.02 Shortness of breath; I11.0 Hypertensive heart disease with heart failure; I50.9 Heart failure, unspecified; J44.9 Chronic obstructive pulmonary disease, unspecified; E11.9 Type 2 diabetes mellitus without complications; Z90.49 Acquired absence of other specified parts of digestive tract; Z86.718 Personal history of other venous thrombosis and embolism; Z90.710 Acquired absence of both cervix and uterus; Z88.2 Allergy status to sulfonamides
CPT/HCPCS: 36415; 71045; 80048; 82040; 84439; 84443; 84484; 85025; 85610; 85730; 93005; 99284

== ENCOUNTER 2019-04-22 18:22 | Emergency (ER) | payer OTHER ==
[~2019-04-22] VITALS: Ht 162.6 cm; Wt 138.0 kg
[~2019-04-22 18:22] MED LIST changes: +CARV12.52 PO; +CYCL1DRO OP; +INSU100V35 SQ; +POTA20PA25 PO
--- NOTE | 2019-04-22 18:36 | NUR ---
MS SQL SERVER DEVELOPER: EKG DONE IN TRIAGE.
[2019-04-22] MEDS ORDERED: PANTOPRAZOLE 80 MG in SODIUM CHLORIDE 0.9% 50 ML IVPB ONE (19:03)
[2019-04-22 19:18] LABS: BASOPHILS # (AUTO) 0.02 x10^3/uL (0-0.1); BASOPHILS % (AUTO) 0 % (0-1); EOSINOPHILS # (AUTO) 0.13 x10^3/uL (0-0.4); EOSINOPHILS % (AUTO) 3 % (1-7); LYMPHOCYTES % (AUTO) 20 % (22-44); MD NO; MEAN CORPUSCULAR HEMOGLOBIN 25.2 pg (27.0-34.8); MEAN CORPUSCULAR HGB CONC 32.2 g/dL (32.4-35.8); MEAN CORPUSCULAR VOLUME 78.4 fL (80-100); MEAN PLATELET VOLUME 8.2 fL (7.4-10.4); MONOCYTES # (AUTO) 0.58 x10^3/uL (0.2-0.8); MONOCYTES % (AUTO) 13 % (2-9); NEUTROPHILS # (AUTO) 2.95 x10^3/uL (1.8-6.8); NEUTROPHILS % (AUTO) 65 % (42-75); PLATELET COUNT 223 x10^3/uL (130-400); RED BLOOD COUNT 3.65 x10^6/uL (3.82-5.3); RED CELL DISTRIBUTION WIDTH 15.5 % (9.6-15.2)
[2019-04-22] MEDS ORDERED: HYDROmorphone 1 MG/ML, 1ML INJ ONE (19:19)
[2019-04-22] MEDS ORDERED: ONDANSETRON 2MG/ML, 2ML ONE (19:19)
[2019-04-22 19:29] LABS: ALBUMIN 3.6 g/dL (3.4-5.0); ANION GAP 5 mmol/L (5-15); CALCIUM 9.1 mg/dL (8.5-10.1); CHLORIDE 107 mmol/L (98-107); CREATININE 0.92 mg/dL (0.55-1.02)
[2019-04-22] MEDS ORDERED: ONDANSETRON 2MG/ML, 2ML IVPush ONE (19:30)
[2019-04-22] MEDS ORDERED: HYDROmorphone 1 MG/ML, 1ML INJ IVPush PRN (19:30)
[2019-04-22 19:31] LABS: ALANINE AMINOTRANSFERASE 28 U/L (12-78); ALKALINE PHOSPHATASE 78 U/L (45-117); BILIRUBIN,TOTAL 0.5 mg/dL (0.2-1.0); TOTAL PROTEIN 7.5 g/dL (6.4-8.2)
--- NOTE | 2019-04-22 19:44 | NUR ---
Late entry: Pt presents to ed states chronic anemia and lupus. Recently developed diffuse abd pain and has seen a endo team w/ colonoscopy and endoscopy 1 week ago. States was on blood thinners up until a week prior, for afib. Since colonoscopy, abd pain worsening and tarry, foul smelling stool noted, as well as generalized weakness.
[2019-04-22] MEDS ORDERED: DIPHENHYDRAMINE 50 MG/ML, 1ML ONE (19:51)
[2019-04-22] MEDS ORDERED: DIPHENHYDRAMINE 50 MG/ML, 1ML IV STA (19:54)
--- NOTE | 2019-04-22 19:54 | NUR ---
Pt states she had generalized hives last time she was given ct, but benadryl helped. Md informed and verbal order of 25 mg iv benadryl tb given.
[2019-04-22] MEDS ORDERED: DIPHENHYDRAMINE 50 MG/ML, 1ML IVPush ONE (20:00)
[2019-04-22 20:24] VITALS: BP 111/72
--- NOTE | 2019-04-22 20:24 | NUR ---
Pt bedside report to Mimi linares. Awaiting ct tx.
--- NOTE | 2019-04-22 20:28 | NUR ---
Bedside report received from GAL Foley. This RN to assume care. Awaiting CT. Patient states she is feeling better after the pain meds.
[2019-04-22] MEDS ORDERED: OMNIPAQUE 350 MG/ML, 150 ML BOTTLE ONE (20:52)
--- NOTE | 2019-04-22 21:31 | NUR ---
ERP in room.
--- NOTE | 2019-04-22 22:55 | NUR ---
Discharge instructions given. All questions and concerns addressed. Patient ambulatory but wheeled out in a wheelchair with her oxygen. Belongings with patient.
== END 2019-04-22 22:57 | disposition home or self-care (01) ==
LOC: ED 22:20
DX: K92.1 Melena (principal); D64.9 Anemia, unspecified; R94.31 Abnormal electrocardiogram [ECG] [EKG]; R10.84 Generalized abdominal pain; R10.31 Right lower quadrant pain; R10.32 Left lower quadrant pain; E66.01 Morbid (severe) obesity due to excess calories; Z68.43 Body mass index [BMI] 50.0-59.9, adult; E11.9 Type 2 diabetes mellitus without complications; J44.9 Chronic obstructive pulmonary disease, unspecified; I50.9 Heart failure, unspecified; Z90.49 Acquired absence of other specified parts of digestive tract; Z90.710 Acquired absence of both cervix and uterus
CPT/HCPCS: 36415; 74177; 80053; 83605; 85025; 93005; 96365; 96375; 99285; C9113; J1170; J2405; Q9967

== ENCOUNTER 2019-06-03 13:01 | Emergency (ER) | payer OTHER ==
[~2019-06-03] VITALS: Ht 165.1 cm; Wt 141.3 kg
--- NOTE | 2019-06-03 13:31 | NUR ---
"IM TIRED AND MY HEART HURTS. MY DOCTOR THINGS MY H AND H IS LOW."
[2019-06-03 13:48] LABS: BASOPHILS # (AUTO) 0.02 x10^3/uL (0-0.1); BASOPHILS % (AUTO) 0 % (0-1); EOSINOPHILS # (AUTO) 0.13 x10^3/uL (0-0.4); EOSINOPHILS % (AUTO) 3 % (1-7); LYMPHOCYTES # (AUTO) 0.74 x10^3/uL (1-3.4); LYMPHOCYTES % (AUTO) 16 % (22-44); MD NO; MEAN CORPUSCULAR HEMOGLOBIN 24.5 pg (27.0-34.8); MEAN CORPUSCULAR HGB CONC 31.2 g/dL (32.4-35.8); MEAN CORPUSCULAR VOLUME 78.5 fL (80-100); MONOCYTES # (AUTO) 0.54 x10^3/uL (0.2-0.8); MONOCYTES % (AUTO) 12 % (2-9); NEUTROPHILS # (AUTO) 3.24 x10^3/uL (1.8-6.8); NEUTROPHILS % (AUTO) 70 % (42-75); PLATELET COUNT 246 x10^3/uL (130-400); RED BLOOD COUNT 3.66 x10^6/uL (3.82-5.3); RED CELL DISTRIBUTION WIDTH 15.9 % (9.6-15.2)
[2019-06-03 13:58] LABS: INTERNATIONAL NORMALIZED RATIO 0.93 (0.93-1.1); PROTHROMBIN TIME 9.8 Seconds (9.6-11.5)
[2019-06-03 13:59] LABS: ALANINE AMINOTRANSFERASE 31 U/L (12-78); ALBUMIN 3.5 g/dL (3.4-5.0); ANION GAP 5 mmol/L (5-15); CALCIUM 8.9 mg/dL (8.5-10.1); CHLORIDE 108 mmol/L (98-107); CREATININE 0.99 mg/dL (0.55-1.02)
--- NOTE | 2019-06-03 14:01 | NUR ---
RN PROVIDED PT WITH A BSC. PT UNABLE TO VOID AT THIS TIME.
[2019-06-03 14:03] LABS: ALKALINE PHOSPHATASE 87 U/L (45-117); BILIRUBIN,TOTAL 0.5 mg/dL (0.2-1.0); TOTAL PROTEIN 7.6 g/dL (6.4-8.2); TROPONIN I < 0.015 ng/mL (0.000-0.045)
--- NOTE | 2019-06-03 14:33 | NUR ---
RN OBTAINED ORTHOSTATIC BP. SEE VS CHARTING. PT STATED DIZZINESS WHEN SITTING TO STANDING UP. RN TO INFORM ERMD.
--- NOTE | 2019-06-03 14:48 | NUR ---
RN UPDATED ERMD IN RESULTS OF ORTHO'S. STATED IT WAS OKAY TO PROVIDE PT WITH WATER FOR PENDING UA.
--- NOTE | 2019-06-03 15:16 | NUR ---
PT ABLE TO PROVIDE RN WITH A URINE SAMPLE. COLLECTED AND SENT TO LAB.
[2019-06-03 15:37] LABS: MICROSCOPIC NOT IND
[2019-06-03 16:00] LABS: CULTURE INDICATED? NO
[2019-06-03 16:51] VITALS: BP 126/56
--- NOTE | 2019-06-03 16:51 | NUR ---
PT DC HOME IN A STABLE CONDITION. DC INSTRUCTIONS WERE DISCUSSED WITH PT. PT VERBALIZED UNDERSTANDING. NO FURTHER QUESTIONS OR CONCERNS WERE EXPRESSED AT THAT TIME. HELPING PT GET DRESSED AND WILL WHEEL PT OUT OF ED.
== END 2019-06-03 16:53 | disposition home or self-care (01) ==
LOC: ED 13:45
DX: R55 Syncope and collapse (principal); R42 Dizziness and giddiness; R53.1 Weakness; R00.2 Palpitations; R06.02 Shortness of breath; I11.9 Hypertensive heart disease without heart failure; E11.9 Type 2 diabetes mellitus without complications; E66.01 Morbid (severe) obesity due to excess calories; J44.9 Chronic obstructive pulmonary disease, unspecified; Z90.49 Acquired absence of other specified parts of digestive tract; Z86.718 Personal history of other venous thrombosis and embolism; Z90.710 Acquired absence of both cervix and uterus; Z68.43 Body mass index [BMI] 50.0-59.9, adult
CPT/HCPCS: 36415; 80053; 81003; 84484; 85025; 85610; 85730; 86850; 86870; 86880; 86900; 86902; 86922; 86923; 93005; 99284

== ENCOUNTER 2019-08-09 08:15 | Outpatient (CLI) | payer OTHER ==
[~2019-08-09 08:15] MED LIST changes: -PANT20TA3 PO; +PANT20TA4 PO
[2019-08-26] MEDS ORDERED: CARV25TA12 PO (10:23)
[2019-08-26] MEDS ORDERED: SEMA0.25 SQ (10:23)
[2019-08-26] MEDS ORDERED: CARV-39 PO (10:23)
== END 2019-08-09 23:59 | disposition home or self-care (01) ==
LOC: CVU 08:15
PROVIDERS: ATTEND Internal Medicine Cardiovascular Disease
DX: I11.9 Hypertensive heart disease without heart failure (principal); R06.02 Shortness of breath; E78.5 Hyperlipidemia, unspecified
CPT/HCPCS: 93306

== ENCOUNTER → 2019-09-15 | Outpatient (CLI) | payer OTHER ==
[~2019-09-15] MED LIST changes: +CARV-39 PO; +CARV25TA12 PO; +PANT20TA3 PO; -PANT20TA4 PO; +REGADENOSON 0.4 MG/5 ML SYRINGE ONE; +SEMA0.25 SQ
== END | disposition home or self-care (01) ==
LOC: RAD 12:08
PROVIDERS: ATTEND Internal Medicine Cardiovascular Disease
DX: I10 Essential (primary) hypertension (principal); R06.02 Shortness of breath
CPT/HCPCS: 78452; 93017; A9502; J2785